=== PATIENT | female | born 1940 | race Caucasian/White ===

== ENCOUNTER → 2024-03-17 06:50 | Outpatient (REF) | payer MEDICARE, OTHER, SELFPAY | LOC: PAVMRI 06:50 | PROVIDERS: ATTENDING PHYSICIAN Pain Medicine Interventional Pain Medicine; FAMILY PHYSICIAN Family Medicine | DX: M54.12 Radiculopathy, cervical region (principal) | CPT/HCPCS: 72141 ==

== ENCOUNTER → 2024-03-25 07:33 | Outpatient (REF) | payer MEDICARE, OTHER, SELFPAY ==
[2024-03-25 08:26] LABS: % Basophils 0.8 % (0-2); % Eosinophils 2.2 % (0-6); % Immature Granulocytes 0.4 % (0-0.5); % Lymphocytes 20.5 % (20.5-51.1); % Monocytes 7.7 % (1.7-9.3); % Neutrophils 68.4 % (42.2-75.2); Absolute Basophils 0.1 10^3/uL (0-0.2); Absolute Eosinophils 0.2 10^3/uL (0-0.7); Absolute Lymphocytes 1.6 10^3/uL (1.2-3.4); Absolute Monocytes 0.6 10^3/uL (0.1-0.6); Absolute Neutrophils 5.3 10^3/uL (1.4-6.5); Hematocrit 37.7 % (37.0-47.0); Hemoglobin 12.8 g/dL (12.0-16.0); Mean Corpuscular Hgb 32.2 pg (27.0-31.0); Mean Corpuscular Volume 94.7 fL (81.0-99.0); Mean Platelet Volume 10.6 fL (7.4-10.4); Nucleated Red Blood Cells % 0 %; Platelet Count 144 10^3/uL (130-400); Red Blood Cell Count 3.98 10^6/uL (4.20-5.40); Red Cell Dist. Width 13.7 % (11.5-14.5); White Blood Cell Count 7.7 10^3/uL (4.8-10.8)
[2024-03-25 09:07] LABS: ALT (SGPT) 16 U/L (0-35); AST (SGOT) 30 U/L (14-36); Albumin 4.4 g/dl (3.5-5.0); Alkaline Phosphatase 69 U/L (38-126); Blood Urea Nitrogen 28 mg/dl (7-17); Calcium 9.5 mg/dl (8.4-10.2); Carbon Dioxide 26 mmol/L (22-30); Chloride 105 mmol/L (98-107); Glucose 86 mg/dl (70-99); HDL Cholesterol 70 mg/dl; LDL Cholesterol, Calculated 106 mg/dl; Potassium 3.9 mmol/L (3.5-5.1); Sodium 139 mmol/L (135-145); Total Bilirubin 0.7 mg/dl (0.2-1.3); Total Cholesterol 195 mg/dl (50-199); Total Protein 6.5 g/dl (6.3-8.2); Triglyceride 96 mg/dl (10-149); Very Low Density Lipoprotein 19 mg/dl (0-30)
[2024-03-25 09:30] LABS: TSH Reflex To Free T4 0.59 uIU/ml (0.47-4.68)
== END ==
LOC: REG 07:33
PROVIDERS: ATTENDING PHYSICIAN Orthopaedic Surgery Hand Surgery; FAMILY PHYSICIAN Family Medicine
DX: I42.2 Other hypertrophic cardiomyopathy (principal); I25.10 Atherosclerotic heart disease of native coronary artery without angina pectoris; N18.30 Chronic kidney disease, stage 3 unspecified; R29.6 Repeated falls; E78.00 Pure hypercholesterolemia, unspecified; Z85.3 Personal history of malignant neoplasm of breast; K21.9 Gastro-esophageal reflux disease without esophagitis; Z01.818 Encounter for other preprocedural examination
CPT/HCPCS: 36415; 80053; 80061; 84443; 85025

== ENCOUNTER → 2024-04-14 14:32 | Outpatient (REF) | payer MEDICARE, OTHER, SELFPAY | LOC: HWRAD 14:32 | PROVIDERS: ATTENDING PHYSICIAN Internal Medicine Cardiovascular Disease; FAMILY PHYSICIAN Family Medicine | DX: R06.00 Dyspnea, unspecified (principal) | CPT/HCPCS: 71046 ==

== ENCOUNTER → 2024-04-15 11:18 | Outpatient (REF) | payer MEDICARE, OTHER, SELFPAY ==
[2024-04-15 12:41] LABS: NT-proBNP 560 pg/ml
== END ==
LOC: REG 11:18
PROVIDERS: ATTENDING PHYSICIAN Internal Medicine Cardiovascular Disease
DX: R06.00 Dyspnea, unspecified (principal)
CPT/HCPCS: 36415; 83880

== ENCOUNTER → 2024-05-10 13:57 | Outpatient (REF) | payer MEDICARE, OTHER, SELFPAY ==
[2024-05-10 14:43] LABS: % Basophils 1.1 % (0-2); % Eosinophils 1.9 % (0-6); % Immature Granulocytes 0.5 % (0-0.5); % Lymphocytes 27.3 % (20.5-51.1); % Monocytes 9.2 % (1.7-9.3); Absolute Basophils 0.1 10^3/uL (0-0.2); Absolute Eosinophils 0.1 10^3/uL (0-0.7); Absolute Lymphocytes 1.7 10^3/uL (1.2-3.4); Absolute Monocytes 0.6 10^3/uL (0.1-0.6); Absolute Neutrophils 3.8 10^3/uL (1.4-6.5); Hematocrit 36.3 % (37.0-47.0); Hemoglobin 12.7 g/dL (12.0-16.0); Mean Corpuscular Hgb 33.2 pg (27.0-31.0); Mean Corpuscular Volume 94.8 fL (81.0-99.0); Mean Platelet Volume 10.7 fL (7.4-10.4); Nucleated Red Blood Cells % 0 %; Platelet Count 145 10^3/uL (130-400); Red Blood Cell Count 3.83 10^6/uL (4.20-5.40); Red Cell Dist. Width 13.3 % (11.5-14.5); White Blood Cell Count 6.3 10^3/uL (4.8-10.8)
[2024-05-10 14:58] LABS: ALT (SGPT) 17 U/L (0-35); AST (SGOT) 30 U/L (14-36); Albumin 4.3 g/dl (3.5-5.0); Alkaline Phosphatase 64 U/L (38-126); Blood Urea Nitrogen 25 mg/dl (7-17); Calcium 9.2 mg/dl (8.4-10.2); Carbon Dioxide 28 mmol/L (22-30); Chloride 98 mmol/L (98-107); Glucose 82 mg/dl (70-99); Iron 143 ug/dl (37-170); Magnesium 1.9 mg/dl (1.6-2.3); Potassium 4.7 mmol/L (3.5-5.1); Sodium 136 mmol/L (135-145); Total Bilirubin 0.8 mg/dl (0.2-1.3); Total Protein 6.3 g/dl (6.3-8.2); eGFR 44.91
[2024-05-10 15:06] LABS: NT-proBNP 370 pg/ml
[2024-05-10 15:27] LABS: TSH 0.03 uIU/ml (0.47-4.68)
[2024-05-10 15:45] LABS: Vitamin B12 992 pg/ml (239-931)
== END ==
LOC: REG 13:57
PROVIDERS: ATTENDING PHYSICIAN Nurse Practitioner Acute Care; FAMILY PHYSICIAN Family Medicine; REFERRING PHYSICIAN Internal Medicine Cardiovascular Disease
DX: I50.30 Unspecified diastolic (congestive) heart failure (principal); D51.9 Vitamin B12 deficiency anemia, unspecified
CPT/HCPCS: 36415; 80053; 82607; 82728; 83540; 83735; 83880; 84443; 85025

== ENCOUNTER 2024-05-12 12:41 | Emergency (ER) | payer MEDICARE, OTHER, SELFPAY ==
[2024-05-12] VITALS (9 sets, daily range): BP systolic 118–143; BP diastolic 66–91; BMI 21.8
[2024-05-12 13:02] LABS: % Basophils 0.9 % (0-2); % Eosinophils 1.5 % (0-6); % Immature Granulocytes 0.3 % (0-0.5); % Lymphocytes 27.8 % (20.5-51.1); % Monocytes 8.3 % (1.7-9.3); % Neutrophils 61.2 % (42.2-75.2); Absolute Basophils 0.1 10^3/uL (0-0.2); Absolute Eosinophils 0.1 10^3/uL (0-0.7); Absolute Lymphocytes 1.8 10^3/uL (1.2-3.4); Absolute Monocytes 0.6 10^3/uL (0.1-0.6); Hematocrit 36.3 % (37.0-47.0); Hemoglobin 12.7 g/dL (12.0-16.0); Mean Corpuscular Hgb 32.9 pg (27.0-31.0); Mean Platelet Volume 10.6 fL (7.4-10.4); Nucleated Red Blood Cells % 0 %; Platelet Count 162 10^3/uL (130-400); Red Blood Cell Count 3.86 10^6/uL (4.20-5.40); Red Cell Dist. Width 13.2 % (11.5-14.5); White Blood Cell Count 6.6 10^3/uL (4.8-10.8)
[2024-05-12 13:15] LABS: ALT (SGPT) 16 U/L (0-35); AST (SGOT) 30 U/L (14-36); Albumin 4.4 g/dl (3.5-5.0); Alkaline Phosphatase 62 U/L (38-126); Blood Urea Nitrogen 23 mg/dl (7-17); Calcium 9.1 mg/dl (8.4-10.2); Carbon Dioxide 25 mmol/L (22-30); Chloride 99 mmol/L (98-107); Estimated Creatinine Clearance 31 ml/min; Glucose 85 mg/dl (70-99); Potassium 4.3 mmol/L (3.5-5.1); Sodium 135 mmol/L (135-145); Total Bilirubin 0.9 mg/dl (0.2-1.3); Total Protein 6.4 g/dl (6.3-8.2)
[2024-05-12 13:27] LABS: Troponin I < 0.012 ng/ml
[2024-05-12] MEDS: LOW STRENGTH ASPIRIN 81 MG PO (14:30)
[2024-05-12 14:49] LABS: Urine Albumin Negative (Neg - Trace); Urine Bilirubin Negative (Negative); Urine Character Clear (Clear); Urine Color Yellow; Urine Glucose Negative (Negative); Urine Ketone Negative (Negative); Urine Leukocyte 2+ (Negative); Urine Nitrite Negative (Negative); Urine Occult Blood Negative (Negative); Urine Urobilinogen Negative (Neg - 1+); Urine pH 6.5 (5.0-9.0)
[2024-05-12] MEDS: SOLU-CORTEF 200 MG IV (15:29)
[2024-05-12] MEDS: BENADRYL 50 MG IV (15:29)
[2024-05-12 15:42] LABS: Urine Red Blood Cell 0-2 /HPF (0-2)
[2024-05-12 15:43] LABS: Urine Squamous Cell 0-2 /LPF (Few)
--- NOTE | 2024-05-12 18:50 | ED.ADDNOTE ---
ED Addendum
ED Addendum
ED Addendum Note:
6:00 PM patient has a normal neurological exam. She is awake, appears very well and comfortable, is alert and speaking without any difficulty. CTA shows no significant occlusion. Case again discussed with Dr. Thacker who feels that patient could go
home and recommends 3 weeks of Plavix.
Patient seen in conjunction with Sergio Arizmendi
--- NOTE | 2024-05-12 19:34 | EDRN ---
Went into discharge patient, patient and patients son inform me that patient is on trial at [place] and isn't suppose to take or start anything new without informing them or talking to them, informed Dr. Valderrama about the plavix, Dr. Valderrama states
ok to not take dose here but to talk to them because she does need to be on this med. A prescription was sent to the pharmacy for patient, went over all of this with patient and her son.
--- NOTE | 2024-05-29 14:06 | ED.CVA ---
History of Present Illness
General
Chief Complaint: CVA/TIA Symptoms
Source: patient
Time Seen by Provider: 05/12/24 13:44
Onset of Stroke Symptoms
Onset of symptoms known: No
Time pt last seen normal is known: No
History of Present Illness
History of Present Illness:
Please state this note May 12, 2024. She 83-year-old female presents from her family doctor's office via EMS after having episode of expressive aphasia in the office. No prior issues similar to this. She is not anticoagulated. She does have
history of cardiomyopathy and is in a clinical trial. She has no complaints currently. She denies any unilateral numbness or weakness. She denies headache
Past History
Past History
ED Past Medical History: CAD, Cancer (Left breast), GERD, HTN, Hypercholesterolemia and Other (CM, Diverticulitis)
ED Past Surgical History: Appendectomy and Cardiac (Stent, 'Fat Heart')
Social History
Tobacco: Former smoker
Alcohol: None
Drug: None
Personal:
Living: with family
Phy Exam
Physical Exam
Physical Exam:
General: Well-appearing female no acute respiratory distress
HEENT normocephalic atraumatic no facial asymmetry
Heart: Regular rate and rhythm
Lungs: Clear no wheeze
Neurologic exam: Alert normal gait conversing appropriately no aphasia no facial asymmetry no drift
Extremities: No cyanosis
Course
Orders/Labs/Results
Orders:
Orders
05/12/24 12:43
Electrocardiogram (*1) Urgent
Reason for Study: TIA/Stroke
EKG- Treatment ONCE
05/12/24 12:52
CMP [Comprehensive Metabolic Panel] Urgent
Complete Blood Count/With Diff Urgent
Troponin I Urgent
05/12/24 12:53
Urinalysis Reflex To Culture Urgent
Date Specimen was Collected: 05/12/24
Time Specimen was Collected: 12:52
Urine Microscopic Reflex Cult Urgent
Urine Culture Urgent
TACO Source: U
Specimen Description:
Date Specimen was Collected: 05/12/24
Time Specimen was Collected: 12:52
05/12/24 14:03
CT Head W/o Iv Contrast Urgent
Comment:
Reason For Exam: tia
Aspirin Chewable [Low Strength Aspirin] 81 mg PO NOW STA
05/12/24 14:53
CT Head & Neck Angio W/wo IV Urgent
Comment:
Reason For Exam: aphasia, word salad
05/12/24 15:24
Diphenhydramine [Benadryl] 50 mg IV NOW STA
Hydrocortisone Sod Succinate [Solu-Cortef] 200 mg IV NOW STA
05/12/24 17:26
DIETARY CONSULT Routine
Reason for Consult: not needed
05/12/24 18:54
Clopidogrel Bisulfate [Plavix] 75 mg PO NOW STA
Abnormal Lab Results
05/12/24 05/12/24
12:52 12:53
RBC 3.86 L 10^6/uL
(4.20-5.40)
Hct 36.3 L %
(37.0-47.0)
MCH 32.9 H pg
(27.0-31.0)
MPV 10.6 H fL
(7.4-10.4)
BUN 23 H mg/dl
(7-17)
Leukocyte Esterase Rfl 2+ A
(Negative)
05/12/24 12:52
05/12/24 12:52
Vital Signs
Initial and Last Documented VS:
Initial Vital Signs
BP
138/69
05/12/24 12:41
Last Documented Vital Signs
Temp Pulse Resp BP Pulse Ox
98.0 F 66 16 143/83 96
05/12/24 12:50 05/12/24 19:00 05/12/24 19:00 05/12/24 19:00 05/12/24 18:45
MDM/Problems Addressed
Differential Diagnosis Includes:
Expressive aphasia at doctor's office. Now resolved normal neurologic exam. Will do CTA and CT of head. Imaging studies were negative. Discussed with neurology. Question possible TIA
. Will start on Plavix for 3 weeks but stable for discharge
*Critical Care Note
Total Time (30-74mins, 75-104mins- exclusive of procedures): Not Applicable
ED Attending Note
-
Portions of this chart may have been created with voice recognition software.� Occasional wrong word or��sound alike� substitutions may have occurred due to the inherent limitations of voice recognition software.
Discharge Plan
Departure
Patient Disposition: Home (Routine Discharge)
Date of Disposition: 05/12/24
Time of Disposition: 18:48
Patient with high blood pressure during this ER visit?: No
Condition: Good
Covid-19: Not Applicable
Discharge Problem:
TIA (transient ischemic attack)
Instructions: Transient Ischemic Attack (DC)
Prescriptions:
New
clopidogrel [Plavix] 75 mg tablet
75 mg PO DAILY Qty: 21 0RF
No Action
coenzyme [id number] E [Co Q-10 (with Vit E)] 1 EACH capsule
1 ea PO DAILY
cholecalciferol (vitamin D3) 2,000 UNITS tablet
2,000 units PO DAILY
ascorbic acid (vitamin C) [Vitamin C] 500 MG tablet
500 mg PO DAILY
pantoprazole 40 MG tablet,delayed release (DR/EC)
40 mg PO DAILY
aspirin 81 MG tablet,chewable
81 mg PO DAILY 0RF
cyanocobalamin (vitamin B-12) [Vitamin B-12] 1,000 mcg Tablet
500 mcg PO DAILY
magnesium oxide 500 mg Tablet
500 mg PO QPM
atorvastatin 20 mg Tablet
20 mg PO QPM 30 Days Qty: 30 0RF
metoprolol succinate [Toprol XL] 25 mg tablet extended release 24 hr
25 mg PO DAILY Qty: 30 11RF
Rx Instructions:
Toprol XL replaces Lopressor
Referrals:
Jann Thacker MD [Active] - (Call and follow-up within 7 days)
Joann Dimas MD [Family Provider] -
Activity Restrictions/Additional Instructions:
Make sure to call neurology to make an appointment to see within 1 week. Please start taking the Plavix once a day for 3 weeks straight. Please return back to the emergency department if you have difficulty speaking, or if you experience any
weakness or numbness.
Interventions
Interventions:
*Risk Screen - Suicide Last Done: 05/12/24 12:45
*General Assessment Last Done: 05/12/24 12:45
*Neglect/Abuse Screening Last Done: 05/12/24 12:45
ED- Fall Risk Assessment Last Done: 05/12/24 12:45
*ED COVID-19 Vaccine History Last Done: 05/12/24 12:45
*Nursing Disposition Last Done: 05/12/24 19:37
ED- Pulmonary Assessment Last Done: 05/12/24 12:45
ED- Neurological Assessment Last Done: 05/12/24 12:45
ED- Cardiac Assessment Last Done: 05/12/24 12:45
ED Swallowing Screen Last Done: 05/12/24 14:19
Discharge Date and Time
Discharge Date/Time: 05/12/24 19:37
Print Language: LEBANESE
== END 2024-05-12 19:37 | disposition home or self-care (01) ==
LOC: EMR 12:41
PROVIDERS: Physician Assistant; EMERGENCY PHYSICIAN Emergency Medicine; FAMILY PHYSICIAN Family Medicine
DX: G45.9 Transient cerebral ischemic attack, unspecified (principal); I42.9 Cardiomyopathy, unspecified; I25.10 Atherosclerotic heart disease of native coronary artery without angina pectoris; K21.9 Gastro-esophageal reflux disease without esophagitis; I10 Essential (primary) hypertension; E78.00 Pure hypercholesterolemia, unspecified; Z87.891 Personal history of nicotine dependence
CPT/HCPCS: 99284; 70450; 70496; 70498; 80053; 81003; 81015; 84484; 85025; 87086; 93005; Q9967

== ENCOUNTER → 2024-06-24 10:37 | Outpatient (REF) | payer MEDICARE, OTHER, SELFPAY ==
[2024-06-24 11:49] LABS: Blood Urea Nitrogen 24 mg/dl (7-17); Calcium 9.3 mg/dl (8.4-10.2); Carbon Dioxide 29 mmol/L (22-30); Chloride 102 mmol/L (98-107); Glucose 81 mg/dl (70-99); Potassium 4.3 mmol/L (3.5-5.1); Sodium 140 mmol/L (135-145)
[2024-06-24 12:42] LABS: Free T4 1.05 ng/dl (0.78-2.19)
[2024-06-25 17:49] LABS: Thyroglobulin Antibodies <0.9 IU/mL (0.0-4.0)
== END ==
LOC: REG 10:37
PROVIDERS: ATTENDING PHYSICIAN Family Medicine
DX: N18.31 Chronic kidney disease, stage 3a (principal); R79.89 Other specified abnormal findings of blood chemistry; E87.1 Hypo-osmolality and hyponatremia
CPT/HCPCS: 36415; 80048; 84439; 84443; 86376; 86800

== ENCOUNTER 2024-07-09 21:00 | Inpatient (IN) | payer MEDICARE, OTHER, SELFPAY ==
[2024-07-09] VITALS (28 sets, daily range): BP systolic 78–125; BP diastolic 61–101; BMI 23.8
--- NOTE | 2024-07-09 15:25 | ED.GENMED ---
History of Present Illness
<MAYNOR Diana Jr. Last Filed: 07/09/24 20:56>
General
Chief Complaint: Chest Pain
Source: patient
Exam Limitations: none
Time Seen by Provider: 07/09/24 15:11
Nursing documentation reviewed up to this point in time: agreed with
History of Present Illness
History of Present Illness:
84-year-old female with past history of hypertrophic cardiomyopathy, previous TIA, CAD status post stent 2020, hypertension hyperlipidemia presenting to the emergency department today with concerns of intermittent chest pain over the past 4 days but
persisting over the past few hours described as sharp achy and pressure with some radiation to her left arm and neck. Took aspirin prior to arrival with slight improvement. Slight associated shortness of breath and nausea no vomiting no
diaphoresis. No recent illness or changes in medication.
Past History
<Jason See Jr., PA-C - Last Filed: 07/09/24 20:56>
Past History
ED Past Medical History: CAD, Cancer (Left breast), GERD, HTN, Hypercholesterolemia and Other (CM, Diverticulitis)
ED Past Surgical History: Appendectomy and Cardiac (Stent, 'Fat Heart')
Social History
Tobacco: Former smoker
Alcohol: None
Drug: None
Personal:
Living: with family
Review of Systems
<MAYNOR Diana Jr. Last Filed: 07/09/24 20:56>
Review of Systems
Allergies reviewed?: Yes
All Other Systems: ROS reviewed and negative except as documented in HPI and ROS
Phy Exam
<MAYNOR Diana Jr. Last Filed: 07/09/24 20:56>
Physical Exam
Physical Exam:
GENERAL: Alert , in no apparent distress
EYE: pupils equal and reactive
NECK: Supple, no significant adenopathy.
ENT: o/p clr, mmm.
CARDIAC: Regular rate and rhythm .
LUNGS: Clear breath sounds bilaterally, no acute respiratory distress, no wheezes/rales/rhonchi
ABDOMEN: Soft, without focal tenderness, no r/g, no cvat
NEUROLOGICAL: Alert and oriented, no focal neuro deficits
SKIN: Warm and dry, skin intact.
MUSCULOSKELETAL: No edema, well perfused.
PSYCH: Normal and appropriate interaction.
Scores
<Jason See Jr., PA-C - Last Filed: 07/09/24 20:56>
Heart Score for Chest Pain Patients
STEMI patient?: No
History: Highly Suspicious
ECG: Nonspecific Repolarization
Age: >/= 65 years
Risk Factors: >/= 3 Risk Factors or History of CAD
Troponin: >/= 3 x Normal Limit
Heart Score for Chest Pain Patients: 9
Heart Score Risk: 72.7 % MACE over next 6 weeks
<Mirza Eddy MD - Last Filed: 07/09/24 21:20>
Heart Score for Chest Pain Patients
Heart Score for Chest Pain Patients: 9
Heart Score Risk: 72.7 % MACE over next 6 weeks
Course
<Jason See Jr., PA-C - Last Filed: 07/09/24 20:56>
Orders/Labs/Results
Orders:
Orders
07/09/24 15:14
Electrocardiogram (*1) Urgent
Reason for Study: Chest Pain
EKG- Treatment ONCE
07/09/24 15:21
Complete Blood Count/With Diff Urgent
Comprehensive Metabolic Panel Urgent
Troponin I Urgent
07/09/24 15:52
Heparin 3,300 units IV NOW STA
07/09/24 15:[address] Non Medication Order As Directed
Physician Order: PTT 6 hours after initial start of Heparin infusion
Above order entered?: Yes
07/09/24 16:00
PTT Urgent
Heparin 91518 Units/250 ml 25,000 units in 250 ml IV PER PROTOCOL
Weight to be used for heparin protocol in kilograms (kg):: 55.5
Protocol:: Cardiac Tx/Acute Coronary
PTT Goal Range to be used:: PTT 73 to 111 seconds
Order type:: Initial
INITIAL Infusion Dose (UNITS/KG/hr) & then follow protocol:: 12 units/kg/hr
Infusion Dose in UNITS/hr & then follow protocol (UNITS/hr):: 650
INFUSION RATE in mL/hr & then follow protocol (mL/hr):: 6.5
PTT less than or equal to 64 seconds:: Increase rate by 200 units/hr (+ 2 mL/hr)
PTT 64.1 to 72.9 seconds:: Increase rate by 100 units/hr (+ 1 mL/hr)
PTT 73 to 111 seconds:: Target Range. No change in rate.
PTT 111.1 to 130.9 seconds:: Decrease rate by 100 units/hr (- 1 mL/hr)
PTT 131 to 199.9 seconds:: HOLD for 1 hr. Then decrease rate by 200 units/hr (- 2 mL/hr)
PTT greater than or equal to 200 seconds:: HOLD for 2 hrs & Notify Provider. Then decrease by 200 units/hr (-
2 mL/hr)
Lab follow-up:: Each change, PTT q6h until 2 consecutive are therapeutic. Then PTT
daily.
07/09/24 16:07
Electrocardiogram (*1) Urgent
Reason for Study: Chest Pain
EKG- Treatment ONCE
07/09/24 16:10
CXR Port [CR Chest Portable - 1 View] Urgent
Comment:
Reason For Exam: cp
Reason Study Needs to be Portable: Unable to Transport
07/09/24 16:32
CT Chest Angio W/wo Iv Contras Urgent
Comment:
Reason For Exam: chets pain to back unequal BP in arms BL
07/09/24 17:49
Fentanyl Citrate/Pf [Sublimaze] 25 mcg IV NOW STA
07/09/24 18:33
0.9% Sodium Chloride 500 ml [Nss] 0 ml IV ONCE
07/09/24 18:34
0.9% Sodium Chloride 500 ml [Nss] 500 ml IV BOLUS
07/09/24 19:11
EKG [Electrocardiogram (*1)] Urgent
Reason for Study: Chest Pain
EKG- Treatment ONCE
07/09/24 19:34
Troponin I Urgent
07/09/24 20:38
Admit/Transfer Patient As Directed
Co-Sign Provider:
Level of Care: Inpatient admission
Assign to:: IVU
Physician / Group: Hospitalist
Diagnosis: NSTEMI
Reason for Hospitalization: NSTEMI
Expected length of stay greater than two midnights?: Yes
ELOS- Estimated Length of Stay in days: 2
I certify the patient meets the requirements for IP care: Yes
07/09/24 20:39
Code Status As Directed
Resuscitation Status: Full Code
07/09/24 20:48
PRN Pain Medication Management As Directed
May give lesser potent ordered pain med per pt: Yes
preference::
Protocol:: Medication orders for pain may be administered in a
manner that supports deferring to patient preference
when the pt is:
- Requesting an ordered lesser potent pain medication.
Least to most potent pain medications are defined
as: acetaminophen < NSAID < tramadol < opioids
(morphine, oxycodone, hydromorphone).
- Requesting a lesser dose of the same medication IF
ORDERED.
- Requesting a less intrusive route of administration
if both routes are prescribed by the provider (PO <
IV).
07/09/24 21:00
Flush (0.9% Sodium Chloride) [Flush (Nss)] See Dose Instructions IV PER PROTOCOL
07/09/24 22:35
PTT Urgent
07/10/24 12:00
Aspirin Chewable [Low Strength Aspirin] 81 mg PO NOON
Atorvastatin [Lipitor] 40 mg PO NOON
Metoprolol Xl [Toprol Xl] 25 mg PO NOON
Pantoprazole [Protonix] 40 mg PO NOON
mavacamten [Camzyos] 5 mg PO NOON
07/11/24 11:00
DC Protocol for Telemetry ONCE
Abnormal Lab Results
07/09/24 07/09/24
15:21 19:34
RBC 3.83 L 10^6/uL
(4.20-5.40)
Hct 36.5 L %
(37.0-47.0)
MCH 33.2 H pg
(27.0-31.0)
MPV 10.8 H fL
(7.4-10.4)
Absolute Monos (auto) 0.7 H 10^3/uL
(0.1-0.6)
BUN 24 H mg/dl
(7-17)
Glucose 132 H mg/dl
(70-99)
Troponin I 0.103 H* D ng/ml
07/09/24 15:21
07/09/24 15:21
Vital Signs
Initial and Last Documented VS:
Initial Vital Signs
BP
97/75
07/09/24 15:13
Last Documented Vital Signs
Temp Pulse Resp BP Pulse Ox
97.9 F 78 16 94/67 96
07/09/24 15:15 07/09/24 20:45 07/09/24 20:45 07/09/24 20:45 07/09/24 20:45
<Mirza Eddy MD - Last Filed: 07/09/24 21:20>
Orders/Labs/Results
Orders:
Orders
07/09/24 15:14
Electrocardiogram (*1) Urgent
Reason for Study: Chest Pain
EKG- Treatment ONCE
07/09/24 15:21
Complete Blood Count/With Diff Urgent
Comprehensive Metabolic Panel Urgent
Troponin I Urgent
07/09/24 15:52
Heparin 3,300 units IV NOW STA
07/09/24 15:[address] Non Medication Order As Directed
Physician Order: PTT 6 hours after initial start of Heparin infusion
Above order entered?: Yes
07/09/24 16:00
PTT Urgent
Heparin 34477 Units/250 ml 25,000 units in 250 ml IV PER PROTOCOL
Weight to be used for heparin protocol in kilograms (kg):: 55.5
Protocol:: Cardiac Tx/Acute Coronary
PTT Goal Range to be used:: PTT 73 to 111 seconds
Order type:: Initial
INITIAL Infusion Dose (UNITS/KG/hr) & then follow protocol:: 12 units/kg/hr
Infusion Dose in UNITS/hr & then follow protocol (UNITS/hr):: 650
INFUSION RATE in mL/hr & then follow protocol (mL/hr):: 6.5
PTT less than or equal to 64 seconds:: Increase rate by 200 units/hr (+ 2 mL/hr)
PTT 64.1 to 72.9 seconds:: Increase rate by 100 units/hr (+ 1 mL/hr)
PTT 73 to 111 seconds:: Target Range. No change in rate.
PTT 111.1 to 130.9 seconds:: Decrease rate by 100 units/hr (- 1 mL/hr)
PTT 131 to 199.9 seconds:: HOLD for 1 hr. Then decrease rate by 200 units/hr (- 2 mL/hr)
PTT greater than or equal to 200 seconds:: HOLD for 2 hrs & Notify Provider. Then decrease by 200 units/hr (-
2 mL/hr)
Lab follow-up:: Each change, PTT q6h until 2 consecutive are therapeutic. Then PTT
daily.
07/09/24 16:07
Electrocardiogram (*1) Urgent
Reason for Study: Chest Pain
EKG- Treatment ONCE
07/09/24 16:10
CXR Port [CR Chest Portable - 1 View] Urgent
Comment:
Reason For Exam: cp
Reason Study Needs to be Portable: Unable to Transport
07/09/24 16:32
CT Chest Angio W/wo Iv Contras Urgent
Comment:
Reason For Exam: chets pain to back unequal BP in arms BL
07/09/24 17:49
Fentanyl Citrate/Pf [Sublimaze] 25 mcg IV NOW STA
07/09/24 18:33
0.9% Sodium Chloride 500 ml [Nss] 0 ml IV ONCE
07/09/24 18:34
0.9% Sodium Chloride 500 ml [Nss] 500 ml IV BOLUS
07/09/24 19:11
EKG [Electrocardiogram (*1)] Urgent
Reason for Study: Chest Pain
EKG- Treatment ONCE
07/09/24 19:34
Troponin I Urgent
07/09/24 20:38
Admit/Transfer Patient As Directed
Co-Sign Provider:
Level of Care: Inpatient admission
Assign to:: IVU
Physician / Group: Hospitalist
Diagnosis: NSTEMI
Reason for Hospitalization: NSTEMI
Expected length of stay greater than two midnights?: Yes
ELOS- Estimated Length of Stay in days: 2
I certify the patient meets the requirements for IP care: Yes
07/09/24 20:39
Code Status As Directed
Resuscitation Status: Full Code
07/09/24 20:48
PRN Pain Medication Management As Directed
May give lesser potent ordered pain med per pt: Yes
preference::
Protocol:: Medication orders for pain may be administered in a
manner that supports deferring to patient preference
when the pt is:
- Requesting an ordered lesser potent pain medication.
Least to most potent pain medications are defined
as: acetaminophen < NSAID < tramadol < opioids
(morphine, oxycodone, hydromorphone).
- Requesting a lesser dose of the same medication IF
ORDERED.
- Requesting a less intrusive route of administration
if both routes are prescribed by the provider (PO <
IV).
07/09/24 21:00
Flush (0.9% Sodium Chloride) [Flush (Nss)] See Dose Instructions IV PER PROTOCOL
07/09/24 22:35
PTT Urgent
07/10/24 12:00
Aspirin Chewable [Low Strength Aspirin] 81 mg PO NOON
Atorvastatin [Lipitor] 40 mg PO NOON
Metoprolol Xl [Toprol Xl] 25 mg PO NOON
Pantoprazole [Protonix] 40 mg PO NOON
mavacamten [Camzyos] 5 mg PO NOON
07/11/24 11:00
DC Protocol for Telemetry ONCE
Abnormal Lab Results
07/09/24 07/09/24
15:21 19:34
RBC 3.83 L 10^6/uL
(4.20-5.40)
Hct 36.5 L %
(37.0-47.0)
MCH 33.2 H pg
(27.0-31.0)
MPV 10.8 H fL
(7.4-10.4)
Absolute Monos (auto) 0.7 H 10^3/uL
(0.1-0.6)
BUN 24 H mg/dl
(7-17)
Glucose 132 H mg/dl
(70-99)
Troponin I 0.103 H* D ng/ml
07/09/24 15:21
07/09/24 15:21
Vital Signs
Initial and Last Documented VS:
Initial Vital Signs
BP
97/75
07/09/24 15:13
Last Documented Vital Signs
Temp Pulse Resp BP Pulse Ox
97.9 F 78 16 94/67 96
07/09/24 15:15 07/09/24 20:45 07/09/24 20:45 07/09/24 20:45 07/09/24 20:45
<Jason See Jr., PA-C - Last Filed: 07/09/24 20:56>
MDM/Problems Addressed
MDM/Problems Addressed:
83-year-old female presenting to the emergency department today with concerns of intermittent chest pain over the past few days but persisting today described as achy throbbing pressure rating to the left arm and neck. Initial EKG showing left
bundle branch block which is new from previous. Blood pressure in the 90s over 70s typically patient's blood pressure slightly higher. Claims that pain is ongoing with a left-sided sharp chest discomfort with radiation down to the back and to the
arm concerning the description to the back CT angiogram was performed as well did not show any evidence of dissection or aortic pathology. Initial troponin negative. Patient did have recurrence of symptoms here repeated troponin form EKG with new
T wave inversions and troponin elevated at 0.103. Patient started on heparin but otherwise mated for further cardiology assessment.
<Jason See Jr., PA-C - Last Filed: 07/09/24 20:56>
*Critical Care Note
Total Time (30-74mins, 75-104mins- exclusive of procedures): Not Applicable
ED Attending Note
<Jason See Jr., PA-C - Last Filed: 07/09/24 20:56>
-
Portions of this chart may have been created with voice recognition software.� Occasional wrong word or��sound alike� substitutions may have occurred due to the inherent limitations of voice recognition software.
<Mirza Eddy MD - Last Filed: 07/09/24 21:20>
ED Attending Note
Patient seen and examined by attending physician: Yes
I performed the substantive portion of visit, reviewed & personally made and approve the management plan that is documented in note by myself or JAVED.: Yes
ED Attending Note:
84-year-old female with a history of hypertrophic cardiomyopathy and LAD stent presents with chest pain. Started at 9 AM. Worse today. Gets this fairly frequently possibly 2-3 times a week and will last for a few hours. Today's episode however
has lasted longer and more severe. No shearing pain or back pain.
Clinically patient is nontoxic in no distress. She does have slightly low blood pressure. She is warm and dry and perfusing well. Lungs are clear and equal. Heart regular rate and rhythm with moderate midsystolic murmur. Abdomen is soft and
nontender.
EKG concerning for possible anterior OR. Some ST elevation in V2 and V3. EKG was sent immediately to cardiology. Awaiting their opinion. Workup in progress
1630... At 1 point patient states the pain was going up to his both shoulders and upper back. This is somewhat different than her previous frequent chest pain episodes. However she remained warm and dry and perfusing well although hypotensive.
Slight asymmetry of blood pressure readings. Chest x-ray unremarkable. Repeat EKG unchanged. Cardiology updated. Troponin negative. Since symptoms started at 9 AM if this was cardiac I would expect a's probable bump in the troponin. Will get a
CT angiography.
Patient had increasing pain. Repeat EKG shows some new changes. However on exam pain was very reproducible to a local chest wall tenderness. Troponin was ordered. Repeat troponin with a delta of 0.103. Pain seems to wax and wane. Cardiology
contacted.
CC=40 minutes
Discharge Plan
Departure
Patient Disposition: Admit
Date of Disposition: 07/09/24
Time of Disposition: 20:55
Admit to: Telemetry
Admit to doctor: Katheryn
Presentation/result/management discussed w/ accepting MD/DO: Hospitalist
Patient with high blood pressure during this ER visit?: No
Condition: Fair
Covid-19: Not Applicable
Discharge Problem:
Chest pain, Elevated troponin
Interventions
Interventions:
*Risk Screen - Suicide Last Done: 07/09/24 15:17
*General Assessment Last Done: 07/09/24 15:17
*Neglect/Abuse Screening Last Done: 07/09/24 15:17
*ED COVID-19 Vaccine History Last Done: 07/09/24 15:17
ED- Cardiac Assessment Last Done: 07/09/24 15:17
[2024-07-09 15:31] LABS: % Basophils 0.9 % (0-2); % Eosinophils 1.6 % (0-6); % Immature Granulocytes 0.4 % (0-0.5); % Lymphocytes 24.7 % (20.5-51.1); % Monocytes 8.2 % (1.7-9.3); % Neutrophils 64.2 % (42.2-75.2); Absolute Basophils 0.1 10^3/uL (0-0.2); Absolute Eosinophils 0.1 10^3/uL (0-0.7); Absolute Lymphocytes 2.1 10^3/uL (1.2-3.4); Absolute Monocytes 0.7 10^3/uL (0.1-0.6); Absolute Neutrophils 5.5 10^3/uL (1.4-6.5); Hematocrit 36.5 % (37.0-47.0); Hemoglobin 12.7 g/dL (12.0-16.0); Mean Corp Hgb Conc. 34.8 g/dL (33.0-37.0); Mean Corpuscular Hgb 33.2 pg (27.0-31.0); Mean Corpuscular Volume 95.3 fL (81.0-99.0); Mean Platelet Volume 10.8 fL (7.4-10.4); Nucleated Red Blood Cells % 0 %; Platelet Count 154 10^3/uL (130-400); Red Blood Cell Count 3.83 10^6/uL (4.20-5.40); White Blood Cell Count 8.5 10^3/uL (4.8-10.8)
[2024-07-09 15:54] LABS: ALT (SGPT) 20 U/L (0-35); AST (SGOT) 33 U/L (14-36); Albumin 4.3 g/dl (3.5-5.0); Alkaline Phosphatase 59 U/L (38-126); Blood Urea Nitrogen 24 mg/dl (7-17); Carbon Dioxide 23 mmol/L (22-30); Chloride 100 mmol/L (98-107); Glucose 132 mg/dl (70-99); Potassium 4.3 mmol/L (3.5-5.1); Sodium 135 mmol/L (135-145); Total Bilirubin 1.1 mg/dl (0.2-1.3); Total Protein 6.4 g/dl (6.3-8.2); Troponin I 0.027 ng/ml; eGFR 55.55
[2024-07-09 16:22] LABS: APTT 34.1 Sec (23.4-35.0)
[2024-07-09] MEDS: HEPARIN 3300 UNITS IV (16:38)
[2024-07-09] MEDS: HEPARIN 25000 UNITS/250 ML IV (16:39)
--- NOTE | 2024-07-09 16:47 | CON.CAR ---
Consultation
Consultation Request
Date/Time Consultation Requested: 07/09/24
Date/Time Consultation Performed: 07/09/24
Requesting Provider: Dr Eddy
Performing Provider: Dr Mirza Salinas
Reason for Consultation: chest pain
Medical History
-
Chief Complaint: chest pain
History of Present Illness:
HPI
She presents with intermittent chest pain for 'a long time' and mostly constant CP with varying intensity over the past 4 days. She describes the pain as constant and 'sharp', using one finger to point to her lower left chest. She additionally has
less frequent right shoulder and upper back pain. Pain is none exertional. She has BARCLAY which has improved with medical therapy for HOCM
She has h/o LAD stenting in 2020 and patent stents and no new significant cor disease on cath 2022 when she was evaluated for chest main and minor troponin elevation peaking at 0.167.
She has HOCM with associated SOB and BARCLAY. Improved symptoms with mavacamten and beta-jazmin. She follows closely at the [facility] for her hypertrophic cardiomyopathy.
Presenting ECG is SR at 77 bpm with LBBB and when compared to 05/12/24 LBBB has replaced incomplete LBBB and lateral strain pattern seen now is new
Presenting troponin is 0.027
Presenting CXR with normal mediastinum, cardiac silhoutte and no PNA or CHF
Recent Testing:
Cardiac catheterizations:�
10/12/22. RHC/LHC. ��DOMINANCE: Right, LEFT MAIN: Normal, �LEFT ANTERIOR DESCENDING: The LAD arises normally from the left main and runs in the anterior interventricular groove. The stents in the mid LAD and diagonal branch remain widely patent.
The diagonal stent has 30% in-stent restenosis at its origin. The remainder of the LAD becomes a small caliber vessel. CIRCUMFLEX: The circumflex is a medium caliber nondominant vessel giving rise to a sizable bifurcating OM1. The circumflex
continues in the AV groove supplying several small posterolateral branches. �RIGHT CORONARY ARTERY: The right coronary artery is a dominant vessel that has a 50% stenosis in its midportion. The iFR measured above the ischemic threshold at 0.97 and
PCI is deferred
10/01/20. Dominance: right. Left Main: nl. LAD: proximal and mid LAD calcified. Complex trifurcation lesion involving the small first diagonal, huge second diagonal and LAD with a hazy 75% LAD stenosis just before diagonal and diffuse disease
thereafter. Ostial second diagonal has 70% stenosis. Circumflex: Luminal irregularities. RCA: 65% stenosis of the mid RCA. Left Ventriculography: LV small and ballet shoe appearance and LVH. EF is 68%. Patient underwent successful complex CSI
diamondback atherectomy to the LAD and diagonal bifurcation and T stenting with a 2.5/8 mm in the diagonal and 2.5/28 mm Susana Xience V drug-eluting stent in the LAD.
Cardiac Magnetic Resonance Imaging (MRI):�
01/05/23. Performed at [facility]. EF 59%. LVEDV 96 mL, Max wall thickness 18 mm, LV mass index 53.33 g/m2, LGE less than 5%. Normal LV cavity size and systolic function. There is asymmetric septal hypertrophy up to 18 mm at the mid-septum. There is mild
SHERLY with flow acceleration seen at the LVOT. 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 RVEF 58%
Echocardiogram:
07/13/2023 01:31:57 PM > nl LV size, asymmetric septal hypertrophy, no LV cavity or outflow tract obstruction, LVOT peak gradient at rest 5 mmHg, LVOT peak gradient with Valsalva 7 mmHg, incompletely visualized endocardium but no regional wall
motion abnormalities are noted in the visualized segment, LVEF 59% (Biplane), GLS 18.1%, grade I DD, reduced tissue Doppler velocity, nl RV size and function, TAPSE 1.8 cm, mildly dilated LA, LA volume 38 mL/m2, nl RA, mild MV leaflet thickening,
mild systolic anterior motion of the chordal apparatus is present, mild-mod MR, mild Tr, PASP 23 mmHg, mild AV calcification, mild AR, the jet is centrally directed, trace LA, pericardial fat pad present, nl aortic root size, proximal ascending
aorta is enlarged at 3.5 cm, upper abdominal aorta nl in size.
Past Med Hx:
HOCM
Coronary artery disease
10/01/20 atherectomy to the LAD and diagonal bifurcation and T stenting with a 2.5/8 mm in the diagonal and 2.5/28 mm Susana Xience V drug-eluting stent in the LAD.
10/12/22 Cor angio for CP patent LAD stents and no new significant cor dz
h/o Traumatic brain injury
she fell out of her bed and hit her head, developed hallucinations approximately 3 weeks later, found to have right subdural collection with subacute to chronic SDH at REPLACED BY [facility] 10/2021Hyperlipidemia with statin intolerance
Left breast cancer status postlumpectomy, chemotherapy and radiation 2001.
Sleep apnea
Fibromyalgia
Osteoarthritis
Dyslipidemia (h/o poorly karla statin but recently tolerating atorvastatin)
Anxiety and depression
Social History
Tobacco: Non-Smoker
Alcohol: None
Drug: None
Personal:
Living: With Family
Family History
Family History: Reviewed & Not Pertinent
Allergies / Home Medications
Allergy/AdvReac Type Severity Reaction Status Date / Time
aspirin Allergy Nausea / Verified 08/31/23 12:19
Vomiting
Cephalosporins Allergy Unknown Verified 08/31/23 12:19
iodine Allergy Unknown Verified 08/31/23 12:19
NSAIDS (Non-Steroidal Allergy Unknown Verified 08/31/23 12:19
Anti-Inflamma
penicillin G Allergy Nausea / Verified 08/31/23 12:19
Vomiting
Penicillins Allergy Nausea / Verified 08/31/23 12:19
Vomiting
Salicylates * Allergy Nausea / Verified 08/31/23 12:19
Vomiting
Sulfa (Sulfonamide Allergy Nausea / Verified 08/31/23 12:19
Antibiotics) Vomiting
sulfamethoxazole Allergy Nausea / Verified 08/31/23 12:19
Vomiting
trimethoprim Allergy Nausea / Verified 08/31/23 12:19
Vomiting
verapamil Allergy Shortness Verified 08/31/23 12:19
of Breath
�Medication �Instructions �Recorded �Confirmed �Type
pantoprazole 40 mg tablet,delayed 40 mg PO NOON Gastrointestinal 09/30/20 07/09/24 History
release issue
ascorbic acid (vitamin C) 250 mg 250 mg PO NOON 07/09/24 07/09/24 History
tablet (Vitamin C)
aspirin 81 mg chewable tablet 81 mg PO NOON 07/09/24 07/09/24 History
atorvastatin 40 mg tablet 40 mg PO NOON 07/09/24 07/09/24 History
biotin 10,000 mcg chewable tablet 10,000 mcg PO NOON 07/09/24 07/09/24 History
(Hair, Skin and Nails (biotin))
cholecalciferol (vitamin D3) 25 25 mcg PO NOON 07/09/24 07/09/24 History
mcg (1,000 unit) tablet (Vitamin
D3)
cyanocobalamin (vitamin B-12) 500 500 mcg PO NOON 07/09/24 07/09/24 History
mcg tablet
mavacamten 5 mg capsule (Camzyos) 5 mg PO NOON 07/09/24 07/09/24 History
metoprolol succinate 25 mg 25 mg PO NOON heart 07/09/24 07/09/24 History
tablet,extended release 24 hr disease/condition
(Toprol XL)
Review of Systems
-
History Source: Patient
All other systems: Negative unless noted
Constitutional: Fatigue
EENT: No Symptoms
Respiratory: Other (BARCLAY)
Cardiac: Chest Pain
Abdomen/GI: No Symptoms
: No Symptoms
Musculoskeletal: Other (generalized pain, mostly R shoulder and b/l upper back)
Skin: No Symptoms
Neurological: No Symptoms
Physical Exam
Vital Signs
Temp Pulse Resp BP Pulse Ox
97.9 F 82 16 118/101 97
07/09/24 15:15 07/09/24 16:04 07/09/24 16:12 07/09/24 16:29 07/09/24 16:04
Lab Results
07/09/24 15:21
07/09/24 15:21
Troponin I 0.027 ng/ml 07/09/24 15:21
Physical Exam
General: Well Developed, Well Nourished and No Apparent Distress (in bed, smilling)
HEENT: Normocephalic, Anicteric and Moist Mucous Membranes
Respiratory: Clear and Non Labored Respirations
Cardiac: S1/S2, Regular Rhythm and Murmur (2/6 DARLENE, no rubs)
Breast: Deferred by me
GI: Soft, Non Tender, Non Distended and Normal Bowel Sounds
Rectal: Deferred by Provider
Musculoskeletal: No Clubbing, No Cyanosis and Other (trace b/l pre-tibial edema)
Skin: Warm
Neuro: Awake, Alert, Oriented and AO x 3
Psych: Calm
Impression / Plan
-
Assessment:
Chest pain, atypical
HOCM
Coronary artery disease
10/01/20 atherectomy to the LAD and diagonal bifurcation and T stenting with a 2.5/8 mm in the diagonal and 2.5/28 mm Susana Xience V drug-eluting stent in the LAD.
10/12/22 Cor angio for CP patent LAD stents and no new significant cor dz
h/o Traumatic brain injury
she fell out of her bed and hit her head, developed hallucinations approximately 3 weeks later, found to have right subdural collection with subacute to chronic SDH at REPLACED BY [facility] 10/2021Hyperlipidemia with statin intolerance
Left breast cancer status postlumpectomy, chemotherapy and radiation 2001.
Sleep apnea
Fibromyalgia
Osteoarthritis
Dyslipidemia (h/o poorly karla statin but recently tolerating atorvastatin)
Anxiety and depression
Recent Testing:
Cardiac catheterizations:�
10/12/22. RHC/LHC. ��DOMINANCE: Right, LEFT MAIN: Normal, �LEFT ANTERIOR DESCENDING: The LAD arises normally from the left main and runs in the anterior interventricular groove. The stents in the mid LAD and diagonal branch remain widely patent.
The diagonal stent has 30% in-stent restenosis at its origin. The remainder of the LAD becomes a small caliber vessel. CIRCUMFLEX: The circumflex is a medium caliber nondominant vessel giving rise to a sizable bifurcating OM1. The circumflex
continues in the AV groove supplying several small posterolateral branches. �RIGHT CORONARY ARTERY: The right coronary artery is a dominant vessel that has a 50% stenosis in its midportion. The iFR measured above the ischemic threshold at 0.97 and
PCI is deferred
10/01/20. Dominance: right. Left Main: nl. LAD: proximal and mid LAD calcified. Complex trifurcation lesion involving the small first diagonal, huge second diagonal and LAD with a hazy 75% LAD stenosis just before diagonal and diffuse disease
thereafter. Ostial second diagonal has 70% stenosis. Circumflex: Luminal irregularities. RCA: 65% stenosis of the mid RCA. Left Ventriculography: LV small and ballet shoe appearance and LVH. EF is 68%. Patient underwent successful complex CSI
diamondback atherectomy to the LAD and diagonal bifurcation and T stenting with a 2.5/8 mm in the diagonal and 2.5/28 mm Susana Xience V drug-eluting stent in the LAD.
Cardiac Magnetic Resonance Imaging (MRI):�
01/05/23. Performed at [facility]. EF 59%. LVEDV 96 mL, Max wall thickness 18 mm, LV mass index 53.33 g/m2, LGE less than 5%. Normal LV cavity size and systolic function. There is asymmetric septal hypertrophy up to 18 mm at the mid-septum. There is mild
SHERLY with flow acceleration seen at the LVOT. 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 RVEF 58%
Echocardiogram:
07/13/2023 01:31:57 PM > nl LV size, asymmetric septal hypertrophy, no LV cavity or outflow tract obstruction, LVOT peak gradient at rest 5 mmHg, LVOT peak gradient with Valsalva 7 mmHg, incompletely visualized endocardium but no regional wall
motion abnormalities are noted in the visualized segment, LVEF 59% (Biplane), GLS 18.1%, grade I DD, reduced tissue Doppler velocity, nl RV size and function, TAPSE 1.8 cm, mildly dilated LA, LA volume 38 mL/m2, nl RA, mild MV leaflet thickening,
mild systolic anterior motion of the chordal apparatus is present, mild-mod MR, mild Tr, PASP 23 mmHg, mild AV calcification, mild AR, the jet is centrally directed, trace LA, pericardial fat pad present, nl aortic root size, proximal ascending
aorta is enlarged at 3.5 cm, upper abdominal aorta nl in size.
Recommendations:
Chest pain is atypical and can be reproduced by point palpation of the left chest mid clavicular line 6th rib very similar to the pain she presented with in Sep for which Cor angio found patent LAD stent no new disease. ECG with LBBB and
strain pattern but cannot exclude lateral ischemia. Presenting troponin 0.027 despite 4 days of continuous pain with waxing and waning intensity.
Index of suspicion for acute cor syndrome is not high but it is possible.
She is being admitted to hospitalist.
ER has ordered chest CTA which is pending
My recommendations for now include:
- IV heparin if CTA without evidence of Ao dissection
- Trend troponins
- Serial ECGs
- Check echo in AM
- Maintain mavacamten and beta-jazmin
Discussed with ER
Discussed with patient and all of her questions answered.
Total time 75 min
Data Reviewed
-
EKG: Tracing Personally Visualized and interpreted
Radiology: Image Personally Visualized and interpreted
MRI: Report Reviewed by me
Medical Tests (Nuc Med, Echo etc): Report Reviewed by me and Discussed with Physician
Labs: Labs Reviewed by me, Discussed with Physician and Discussed with Patient
Old Records: Reviewed
[2024-07-09] MEDS: SUBLIMAZE 25 MCG IV (17:52)
[2024-07-09] MEDS: NSS 500 IV (18:35)
[2024-07-09 20:06] LABS: Troponin I 0.103 ng/ml
--- NOTE | 2024-07-09 20:24 | HPS.HSE ---
Family Physician
-
Family Physician: Joann Dimas MD
Chief Complaint
-
Chest pain
History of Present Illness
This is an 84-year-old female with a past medical history of hypertrophic cardiomyopathy EF of around 60%, CAD status post stenting, GERD, CKD, hyperlipidemia, recent TIA who presents to the emergency department with worsening chest pain that is
different from her baseline.
Patient reports history of chronic dyspnea on exertion and lightheadedness. Over the last few weeks she has had increasing stress due to ambulatory dysfunction and nocturia from spouse. Last 4 days reports intermittent chest pressure over the left
chest. However today there is a difference in the quality and severity of her symptoms. She had was with substernal chest pressure lasting hours that was radiating to bilateral shoulders and back today. She also had worsening of feeling of
shortness of breath and lightheadedness. She had an episode of nausea. She denied diaphoresis. There was no vomiting. She denied pleuritic symptoms. Patient took 4 baby aspirin's. Pain improved by the time she arrived in the emergency
department but was still at least a 4 out of 10. She recently completed a course of Plavix for TIA about a week ago.
In the emergency department blood pressure was initially 93/68 which is around her baseline. Pulse 74 she was satting 100%. Initial troponin was 0.027, a repeat troponin later on was 0.1. ECG shows a normal sinus rhythm at a rate of 72 with a new
left bundle branch block compared to April. She had T wave inversions in the lateral leads. Chest x-ray was clear. She had a CT angiogram which was negative for dissection. CBC was unremarkable chemistries were within normal limits. Patient
was seen by cardiology.
Medical History
Past Medical History
Past Medical History: Reports CAD (s/pPCI), GERD, Hypercholesterolemia and Other (Hypertrophic cardiomyopathy)
Additional Past Medical History:
CKD
Past Surgical History: Reports Appendectomy, Orthopedic (Left total knee replacement) and Other (Lumpectomy left breast)
Additional Past Surgical History:
C7-T1 IL SALLY
Social History
Tobacco: Non-smoker
Alcohol: None
Drug: None
Personal:
Living: With Family
Employment: Retired
Family History
Family History: Not pertinent
Allergies / Home Medications
Allergies reflects when Allergies were last updated in [facility].
Home Medications with original date entered in [facility]
Allergy/Medication List:
Allergies
Allergy/AdvReac Type Severity Reaction Status Date / Time
aspirin Allergy Nausea / Verified 08/31/23 12:19
Vomiting
Cephalosporins Allergy Unknown Verified 08/31/23 12:19
iodine Allergy Unknown Verified 08/31/23 12:19
NSAIDS (Non-Steroidal Allergy Unknown Verified 08/31/23 12:19
Anti-Inflamma
penicillin G Allergy Nausea / Verified 08/31/23 12:19
Vomiting
Penicillins Allergy Nausea / Verified 08/31/23 12:19
Vomiting
Salicylates * Allergy Nausea / Verified 08/31/23 12:19
Vomiting
Sulfa (Sulfonamide Allergy Nausea / Verified 08/31/23 12:19
Antibiotics) Vomiting
sulfamethoxazole Allergy Nausea / Verified 08/31/23 12:19
Vomiting
trimethoprim Allergy Nausea / Verified 08/31/23 12:19
Vomiting
verapamil Allergy Shortness Verified 08/31/23 12:19
of Breath
Home Medications
pantoprazole 40 mg tablet,delayed release 40 mg PO NOON Gastrointestinal issue 09/30/20
ascorbic acid (vitamin C) 250 mg tablet (Vitamin C) 250 mg PO NOON 07/09/24
aspirin 81 mg chewable tablet 81 mg PO NOON 07/09/24
atorvastatin 40 mg tablet 40 mg PO NOON 07/09/24
biotin 10,000 mcg chewable tablet (Hair, Skin and Nails (biotin)) 10,000 mcg PO NOON 07/09/24
cholecalciferol (vitamin D3) 25 mcg (1,000 unit) tablet (Vitamin D3) 25 mcg PO NOON 07/09/24
cyanocobalamin (vitamin B-12) 500 mcg tablet 500 mcg PO NOON 07/09/24
mavacamten 5 mg capsule (Camzyos) 5 mg PO NOON 07/09/24
metoprolol succinate 25 mg tablet,extended release 24 hr (Toprol XL) 25 mg PO NOON heart disease/condition 07/09/24
Review of Systems
-
History Source: Patient
Constitutional: Reports No Symptoms
EENT: Reports No Symptoms
Respiratory: Reports No Symptoms
Cardiac: Reports Chest Pain
Abdomen/GI: Reports Nausea
: Reports No Symptoms
Musculoskeletal: Reports No Symptoms
Skin: Reports No Symptoms
Neurological: Reports No Symptoms
Endocrine: Reports No Symptoms
Hematologic/Lymphatic: Reports No Symptoms
Psych: Reports No Symptoms
Physical Exam
Vital Signs
Vital Signs
Temp Pulse Resp BP Pulse Ox
97.9 F 82 16 125/69 97
07/09/24 15:15 07/09/24 20:15 07/09/24 20:15 07/09/24 20:15 07/09/24 20:15
Physical Exam
General: Well Developed, Well Nourished and No Apparent Distress
HEENT: NormoCephalic, Anicteric, Moist mucous membranes, Atraumatic and PERRLA
Respiratory: Clear
Cardiac: S1/S2 and Regular Rhythm
Breast: Deferred by me
GI: Soft, Non Tender, Non Distended and Normal Bowel Sounds
Rectal: Deferred by Provider
Genito-urinary: Deferred by me
Musculoskeletal: No Clubbing, No Cyanosis and No Edema
Skin: Warm
Neuro: AO x 3
Hematologic/Lymphatic: No Lymphadenopathy
Psych: Calm
Laboratory Results
-
07/09/24 15:21
07/09/24 15:21
Laboratory Results
APTT 34.1 Sec (23.4-35.0) 07/09/24 16:00
Total Bilirubin 1.1 mg/dl (0.2-1.3) 07/09/24 15:21
AST 33 U/L (14-36) 07/09/24 15:21
ALT 20 U/L (0-35) 07/09/24 15:21
Alkaline Phosphatase 59 U/L (38-126) 07/09/24 15:21
Troponin I 0.103 ng/ml H* D 07/09/24 19:34
Data Reviewed
-
Diagnostic Radiology: Image Personally Visualized and interpreted
CT Scan: Report Reviewed by me
Medical Tests (Nuc Med, Echo, EKG etc): Image Personally Visualized and interpreted
Lab Data: Labs Reviewed by me
Old Records: Reviewed
Impression/Plan
-
IMPRESSION:
84 F w/ HCM, CAD s/p stents, EF ~50%, Non ischemic Myocardial injury last year, recent TIA presenting with a few days of BARCLAY, then typical chest pain today improved with aspirin. New changes on ECG with new LBBB and dynamic ST changes without st
elevation. Troponin 0.027 -> 0.1. Had a cath last year with 30% stent stenosis noted and no new interventions perfomed. Seen by cardiology with recs.
PLAN:
1. NSTEMI - Currently pain is 2/10
- admit to ivu
- aspirin, heparin gtt
- continue statin
- trend trops and ECG
- echo in am
- cardiac diet for now
2. HCM
- BP around 95/60 at baseline. No signs of overt heart failure
- continue mavacamten per cards
- continue metoprolol 25 mcg
3. Dyspnea - Likely related to cardiac condition. No PE
- check excercise o2 sat for possible home O2
DVT PPX - on heparin gtt
Code status - Full Code
--- NOTE | 2024-07-09 23:08 | PTCARENOTE ---
Pt. received from ED on stretcher. Pt. transferred over to IVU bed with no problems. Pt. AOx3, tele reading NSR w BBB. BP hypotensive 88-89/60s-70s. Pt. states her baseline SBP is in the 90s. Pt. arriving on heparin drip at 650units/hr, PTT drawn at
2245, awaiting results. Admission completed. RN orients pt to room and explains plan of care to patient. Pt. verbalizes understanding. Call brown within reach. Continuing to monitor at this time.
[2024-07-09 23:14] LABS: Troponin I 0.224 ng/ml
[2024-07-09 23:24] LABS: APTT > 200 Sec (23.4-35.0)
--- NOTE | 2024-07-09 23:32 | PTCARENOTE ---
PTT resulted greater than 200. Heparin stopped, will be resumed in 2 hours. Provider notified per policy. Continuing to monitor at this time.
[2024-07-10] VITALS (32 sets, daily range): BP systolic 72–128; BP diastolic 45–82
[2024-07-10 04:13] LABS: Blood Urea Nitrogen 26 mg/dl (7-17); Calcium 8.8 mg/dl (8.4-10.2); Carbon Dioxide 19 mmol/L (22-30); Chloride 103 mmol/L (98-107); Estimated Creatinine Clearance 33 ml/min; Glucose 91 mg/dl (70-99); Potassium 4.3 mmol/L (3.5-5.1); Sodium 133 mmol/L (135-145); eGFR > 60.00
[2024-07-10 04:25] LABS: Troponin I 0.548 ng/ml
[2024-07-10] MEDS: MAALOX 30 ML PO ×2 (04:38→07:38)
[2024-07-10 05:23] LABS: APTT 126.9 Sec (23.4-35.0)
[2024-07-10] MEDS: NSS 250 IV ×2 (07:45→08:45)
--- NOTE | 2024-07-10 07:55 | PTCARENOTE ---
Pt c/o indigestion and chest discomfort, rated 9/10, nauseous, requesting Maalox. HR 70's in SR, BP 76/58. EKG obtained. Maisha Rossi notified and came to see Pt. Maalox given with some relief, rates discomfort 6/10 now. 250 ml NSS bolus ordered
and started. BP 80/56 currently, denies dizziness, lightheadedness while lying in bed.
[2024-07-10] MEDS: COLACE PO (08:00)
--- NOTE | 2024-07-10 08:17 | W.PN.CARDCBS ---
Addendum entered and electronically signed by Willian Pavon DO 07/10/24 11:29:
I saw and examined the patient.
The Composition Weatherboard Installer's note was reviewed and I agree with the note.
Comment:
Plan:
Troponins continue to trend up.
Urgent echo with new motion abnormality apex and worsening MR now severe.
Pt with known CAD including stents to LAD
Chest CT no dissection or PE
Discussed cath and pt is agreeble and prefers eval of coronary anatomy.
Requested records from outside medicare interviewer whom she sees for hx HCOM.
Discussed with nursing and with interventional cardiology. Pt takes Mavacamten
Original Note:
Today's Communication / Plan
-
NPO for possible cath today
continue trending troponin and symptoms
will contact her team at [facility] who manages her HOCM
Impression / Plan
-
Assessment:
Chest pain
troponin trending up, peak 0.548
HOCM
Coronary artery disease
10/01/20 atherectomy to the LAD and diagonal bifurcation and T stenting with a 2.5/8 mm in the diagonal and 2.5/28 mm Susana Xience V drug-eluting stent in the LAD.
10/12/22 Cor angio for CP patent LAD stents and no new significant cor dz
h/o Traumatic brain injury
she fell out of her bed and hit her head, developed hallucinations approximately 3 weeks later, found to have right subdural collection with subacute to chronic SDH at [facility] 10/2021Hyperlipidemia with statin intolerance
Left breast cancer status postlumpectomy, chemotherapy and radiation 2001.
Sleep apnea
Fibromyalgia
Osteoarthritis
Dyslipidemia (h/o poorly karla statin but recently tolerating atorvastatin)
Anxiety and depression
Recent Testing:
Cardiac catheterizations:�
10/12/22. RHC/LHC. ��DOMINANCE: Right, LEFT MAIN: Normal, �LEFT ANTERIOR DESCENDING: The LAD arises normally from the left main and runs in the anterior interventricular groove. The stents in the mid LAD and diagonal branch remain widely patent.
The diagonal stent has 30% in-stent restenosis at its origin. The remainder of the LAD becomes a small caliber vessel. CIRCUMFLEX: The circumflex is a medium caliber nondominant vessel giving rise to a sizable bifurcating OM1. The circumflex
continues in the AV groove supplying several small posterolateral branches. �RIGHT CORONARY ARTERY: The right coronary artery is a dominant vessel that has a 50% stenosis in its midportion. The iFR measured above the ischemic threshold at 0.97 and
PCI is deferred
10/01/20. Dominance: right. Left Main: nl. LAD: proximal and mid LAD calcified. Complex trifurcation lesion involving the small first diagonal, huge second diagonal and LAD with a hazy 75% LAD stenosis just before diagonal and diffuse disease
thereafter. Ostial second diagonal has 70% stenosis. Circumflex: Luminal irregularities. RCA: 65% stenosis of the mid RCA. Left Ventriculography: LV small and ballet shoe appearance and LVH. EF is 68%. Patient underwent successful complex CSI
diamondback atherectomy to the LAD and diagonal bifurcation and T stenting with a 2.5/8 mm in the diagonal and 2.5/28 mm Susana Xience V drug-eluting stent in the LAD.
Cardiac Magnetic Resonance Imaging (MRI):�
01/05/23. Performed at [facility]. EF 59%. LVEDV 96 mL, Max wall thickness 18 mm, LV mass index 53.33 g/m2, LGE less than 5%. Normal LV cavity size and systolic function. There is asymmetric septal hypertrophy up to 18 mm at the mid-septum. There is mild
SHERLY with flow acceleration seen at the LVOT. 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 RVEF 58%
Echocardiogram:
07/13/2023 01:31:57 PM > nl LV size, asymmetric septal hypertrophy, no LV cavity or outflow tract obstruction, LVOT peak gradient at rest 5 mmHg, LVOT peak gradient with Valsalva 7 mmHg, incompletely visualized endocardium but no regional wall
motion abnormalities are noted in the visualized segment, LVEF 59% (Biplane), GLS 18.1%, grade I DD, reduced tissue Doppler velocity, nl RV size and function, TAPSE 1.8 cm, mildly dilated LA, LA volume 38 mL/m2, nl RA, mild MV leaflet thickening,
mild systolic anterior motion of the chordal apparatus is present, mild-mod MR, mild Tr, PASP 23 mmHg, mild AV calcification, mild AR, the jet is centrally directed, trace ME, pericardial fat pad present, nl aortic root size, proximal ascending
aorta is enlarged at 3.5 cm, upper abdominal aorta nl in size.
Echocardiogram 11/24/2023 ([facility]): nl LV size, asymmetric basal septal hypertrophy, no significant LVOT obstruction, LVOT peak at rest 16mmHg, LVOT peak w/ Valsalava 21mmHg, no wall motion abnormalities, EF 67%, nl RV size and borderline fxn,
mild-mod MR, mild SHERLY of ant leaflet; mild TR, prox segment asc aorta 3.3 cm, no significant change compared to 09/01/23
Recommendations:
recurrent CP today up to 8/10 with troponin trending up, current 0.548. CP partially relieved with Maalox, current 6/10. Repeat troponin now. EKG NSR, LBBB
keep NPO for poss cath today
hypotensive with BP 76/ - rec'd NSS 250cc. No SL NTG due to hypotension
Cath Sep for similar CP- patent LAD stent no new disease. ECG with LBBB and strain pattern but cannot exclude lateral ischemia. Presenting troponin 0.027 despite 4 days of continuous pain with waxing and waning intensity, now trending up to
0.54
Index of suspicion for acute cor syndrome is not high but it is possible.
ECHO now
chest CTA no dissection or PE
Maintain mavacamten and beta-jazmin for HOCM. Will contact her provider at [facility].
Total time 60 min
Progress Note - Chief Growth Officer
Subjective
Date of Service: July 10, 2024
8/10 CP this morning, improved to 6/10 with Maalox
trending troponins - 0.103--->0.548 at 0300, repeating now
BP 76/ -no dizziness, rec'd NSS 250 cc
Objective
Labs:
07/09/24 15:21
07/10/24 03:17
Labs
Hgb 12.7 g/dL (12.0-16.0) 07/09/24 15:21
Hct 36.5 % (37.0-47.0) L 07/09/24 15:21
Plt Count 154 10^3/uL (130-400) 07/09/24 15:21
APTT 126.9 Sec (23.4-35.0) H 07/10/24 04:56
Sodium 133 mmol/L (135-145) L 07/10/24 03:17
Potassium 4.3 mmol/L (3.5-5.1) 07/10/24 03:17
BUN 26 mg/dl (7-17) H 07/10/24 03:17
Creatinine 0.9 mg/dL (0.6-1.0) 07/10/24 03:17
Glucose 91 mg/dl (70-99) 07/10/24 03:17
Troponins
07/09/24 07/09/24 07/09/24
15:21 19:34 22:44
Troponin I 0.027 0.103 H* D 0.224 H* D
07/10/24
03:17
Troponin I 0.548 H* D
Vital Signs and I&O:
Vital Signs
Temp Pulse Resp BP Pulse Ox
98.3 F 72 20 93/63 96
07/10/24 05:29 07/10/24 05:15 07/09/24 22:10 07/10/24 02:45 07/10/24 05:29
Vital Signs
Temp Pulse Resp BP Pulse Ox
98.3 F 72 20 93/63 96
07/10/24 05:29 07/10/24 05:15 07/09/24 22:10 07/10/24 02:45 07/10/24 05:29
Physical Exam
Physical Exam
GEN: No distress, awake, Ox3
HEENT: supple, anicteric, mmm
LUNGS: CTA, no wheezes/rales
CV: Reg, S1/S2, 3/6 DARLENE heard t/o precordium
ABD: soft, BS+, NT/ND
EXT: No edema
NEURO: Gross non-focal
SKIN: No rash
[2024-07-10 08:51] LABS: APTT 74.6 Sec (23.4-35.0)
[2024-07-10 09:06] LABS: Troponin I 0.694 ng/ml
[2024-07-10] MEDS: ZOFRAN 4 MG IV (09:24)
--- NOTE | 2024-07-10 09:26 | PTCARENOTE ---
Pt CP down to 4 or 5, currently having ECHO. Pt also continues to have nausea. Med w/ Zofran 4 mg IV as ordered.
--- NOTE | 2024-07-10 10:14 | PTCARENOTE ---
Pt resting quietly, she reports some relief from nausea after having Zofran. BP 78/58. Pt denies symptoms, Maisha Rossi aware.
[2024-07-10] MEDS: PROTONIX 40 MG PO (11:36)
[2024-07-10] MEDS: LOW STRENGTH ASPIRIN 81 MG PO (11:37)
[2024-07-10] MEDS: LIPITOR 40 MG PO (11:37)
--- NOTE | 2024-07-10 12:17 | CM ---
CM following for DC planning needs.
Met w/ patient at bedside to complete initial assessment.
Pt. resides w/ spouse, with whom she is caregiver in a private 2 story home w/ 1 JOHNY.
In the home, there are RW, SPC, and wheelchair + stairglide to second level. Pt., however, uses no assisted device for ambulation.
Pt. has caregiver support for her spouse several times per week but is seeking more help. She has resources and prefers to use her own rather than home health agencies.
Pt. has family closeby that assist. Dtr., however, has been in [place] for the past 6 weeks and is of the most support.
Pt. has Rx plan and uses [facility] on [address] for prescription needs.
Pt. does not think that she will have any needs at DC.
Will follow closely.
[2024-07-10] MEDS: SOLU-CORTEF 100 MG IV (13:00)
--- NOTE | 2024-07-10 13:08 | PTCARENOTE ---
Pt premedicated with Solucortef 100 mg IV as ordered.
--- NOTE | 2024-07-10 13:32 | PTCARENOTE ---
Pt voided small amt tha urine 50 ml on bedpan. Bladder scanned for 407 ml. Pt assisted OOB to BSC and voided 150 ml of dk tha urine. Pt denies any abdominal discomfort.
--- NOTE | 2024-07-10 14:34 | W.PN.HOSP.TC ---
Addendum entered and electronically signed by Johnson Lambert MD 07/10/24 21:05:
Attending Addendum-
I saw and evaluated the patient. I reviewed the resident�s note and agree with findings and plan as documented in the resident�s note. Sub: Patient continues to have intermittent left sides CP. Denies BARCLAY or SOB. CP exacerbated by exertion. Full 12
point ROS reviewed and negative except as documented Exam: Vitals reviewed in chart GEN-NAD heart RRR 3/6 blowing murmur rad to axilla lungs crckles at bases abd soft LE no edema
PLAN:
# NSTEMI
- cont care in ivu -requires close cardiac monitoring
- cont aspirin, heparin gtt follow aptt
- continue statin
- trops trending up
- echo 07/10- Moderately reduced Left ventricular ejection fraction 35-40%.
Distal septum and apex are akinetic. The distal inferior, distal anterior
and distal lateral are hypokinetic. HOCM.
Systolic anterior motion of the anterior mitral valve leaflet.
Severe mitral regurgitation.
Mild aortic regurgitation.
Moderate tricuspid regurgitation. Estimated pulmonary artery pressure of 40-45 mmHg.
- cath 07/10-Modest progression of coronary disease in mid RCA and at the origin of the first diagonal branch. 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
- cont diet for now
# Severe mitral regurgitation
- SHERLY with worsening LV function
- d/w cards
- transfer to [facility] for further care
-
# Cardiomyopathy; possible takotsubo
- f/u [facility] for further care
- cont BB and asa
# HOCM
- Lower BP's at baseline. No signs of overt heart failure
- Hold mavacamten per cards
- Continue metoprolol 25 mcg
- transfer to [facility] when able
# Acute Hypoxemic Respiratory Failure
- secondary to cardiac causes
- continue for now
# GERD- cont protonix
# HLD- cont atorvastatin
DVT PPX - on heparin gtt
Code status - Full Code
Dispo transfer to [facility] when able
Time spent coordinating care, review of plan of care with resident, personally reviewed records in EMR, med rec, consults, notes, labs, radiology, d/w nursing dr. cates CM re transfer � 60 mins
Original Note:
Today's Communication/Plan
-
Cardiac cath pending
Management per cards
Continue in IVU
Assessment / Plan
Assessment / Plan
Pleasant 84-year-old female past medical history of hypertrophic cardiomyopathy, CAD status post stents, nonischemic myocardial injury last year, recent TIA presenting a few days with typical chest pain improved with aspirin. Troponins uptrending,
urgent echo and cath likely today.
#NSTEMI
On telemetry in IVU
Aspirin, heparin drip
Continue statin
Troponins uptrending
Routine EKG
Echo 35-40%
Left ventricle is small in size. Moderately reduced left ventricular systolic
function. Left ventricular ejection fraction is 35-40% by visual assessment.
The distal septum and apex are akinetic. The distal inferiror, distal anterior
and distal lateral are hypokinetic. HOCM. LVOT gradients difficult to assess
due to severe MR.
Systolic anterior motion of the anterior mitral valve leaflet. Severe mitral
regurgitation.
Mild aortic regurgitation.
Moderate tricuspid regurgitation. Estimated pulmonary artery pressure of 40-45
mmHg.
Compared to the previous echo from Sep 2022, which was reviewed, EF was 65-
70%, moderate asymmetrical septal hypertrophy with LVOT gradients were present
and mild to moderate MR were seen in that study.
N.p.o. for cardiac cath
Cardiology following
#Hypertrophic cardiomyopathy
BP around 95/60 at baseline. No overt signs of heart failure
Continue Mavik CAM 10 per cardiology recommendation
Continue metoprolol 25
#Dyspnea
Likely secondary to cardiac etiology
Monitor
#Hypokalemia
Monitor BMP
#GERD
continue pantoprazole
#HLD
Continue statin
DVT prophylaxis on heparin drip
Diet n.p.o.
Status full code
Anticipated Discharge: > 48 hours
Subjective/Interval History
-
Date of Service: July 10, 2024
Objective Data
-
Labs:
Laboratory Results
07/10/24 07/10/24 07/10/24
03:17 04:56 08:21
APTT 126.9 H 74.6 H
Sodium 133 L
Potassium 4.3
Chloride 103
Carbon Dioxide 19 L
BUN 26 H
Creatinine 0.9
Glucose 91
Calcium 8.8
Vital Signs:
Vital Signs
Temp Pulse Resp BP Pulse Ox
97.8 F 86 16 85/66 94
07/10/24 11:18 07/10/24 11:18 07/10/24 11:18 07/10/24 11:15 07/10/24 11:18
Review of Systems
-
History Source: Patient
Respiratory: Reports No Symptoms
Cardiac: Reports Chest Pain
Abdomen/GI: Reports Nausea; Denies Vomiting or Diarrhea
Genitourinary: Reports No Symptoms
Neuro: Reports No Symptoms
Physical Exam
-
General: No Apparent Distress
HEENT: Normocephalic
Respiratory: Clear to Auscultation
Cardiac: S1/S2 and Murmur
GI: Soft and Nontender
Musculoskeletal: No Edema
Skin: Warm
Neuro: AO x 3
Psych: Calm
[2024-07-10 15:55] LABS: Troponin I 0.735 ng/ml
--- NOTE | 2024-07-10 16:23 | PTCARENOTE ---
Rec'd Pt post cardiac cath, drowsy but awakens easily, answers questions approp. R femoral dsg D+I.
--- NOTE | 2024-07-10 16:26 | ITS.CL.CATH ---
Marketing Operations Specialist - Catheterization
Cardiac Catheterization
Procedure Report:
LEFT HEART CATHETERIZATION
Date of Procedure: July 10, 2024
Referring: Dr. Erwin Preston
PROCEDURES:
1. Left heart catheterization with coronary and single-plane left ventriculography
INDICATION: Chest pain with elevated troponin. Hypertrophic cardiomyopathy with new severe mitral regurgitation
ACCESS: Right common femoral artery, 6 [place] sheath
HEMODYNAMICS : (mmHg)
AO (s/d) : 80/59
LV [place](s/d) : 160/13, LVEDP: 24 (end-hole catheter at LV apex)
LV Subvalve (s) : 80 mmHg (end-hole catheter just below AV)
CORONARY FINDINGS
DOMINANCE: Right
LEFT MAIN: Normal
LEFT ANTERIOR DESCENDING: The LAD arises normally from the left main and runs in the anterior interventricular groove. There is a stent in the mid LAD spanning the origin of the only sizable diagonal branch. The diagonal is also stented
proximally. The mid LAD stent remains widely patent. The proximal/unstented segment in the diagonal branch at its origin and has a smooth 60-70% stenosis that may be slightly worse when compared to the angiogram from September 2022. There is a
prominent myocardial bridge in the mid LAD. The distal LAD wraps around the apex supplying a portion of the inferior wall.
CIRCUMFLEX: The circumflex is a medium caliber nondominant vessel giving rise to a sizable bifurcating OM1. The circumflex continues in the AV groove terminating in a small posterolateral branches
RIGHT CORONARY ARTERY: The right coronary artery is a dominant vessel with a 60% smooth stenosis in its midportion that may have angiographically progressed slightly since the last catheterization in September 2022. The PDA is small but patent
VENTRICULOGRAPHY: Left ventriculography is performed in an VILA projection. The digital single-plane left ventricular ejection fraction is visually estimated at 30-35% with mid to distal anterior, apical, and distal inferior hypokinesis. The base
of the heart moves best. There is 4+ mitral regurgitation filling to a dilated left atrium
RADIATION SUMMARY: Fluoro Time (min): 4.9, Dose (mGy): 325, DAP (Gy.cm2) : 23.9
Closure Device: 6 [place] Angio-Seal RFA
CONCLUSIONS
1. Severe mitral regurgitation
2. Cardiomyopathy; possible takotsubo
3. Modest progression of coronary disease in mid RCA and at the origin of the first diagonal branch. 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
RECOMMENDATIONS
1. I discussed angiographic findings with Dr. Jason Rizzo at the [facility].
2. Will discontinue Camzios.
3. Will transfer to the [facility] Heart Failure service given SHERLY with severe mitral regurgitation and new / worsening LV dysfunction
Copy to: Dr. Jason Rizzo, Dr. Erwin Preston
--- NOTE | 2024-07-10 18:01 | W.DCSUMMARY ---
Discharge Summary
Discharge Data
Date of Admission: 07/09/24
Date of Discharge: 07/12/24
-
Pending Results: No
Hospital Course
Primary diagnosis:
HOCM with SHERLY with severe mitral regurgitation and new / worsening LV dysfunction
Secondary diagnosis:
Hyperlipidemia
Coronary artery disease status post CABG
GERD
84-year-old female with past medical history of HOCM, CAD s/p stent presented to the [facility] with chest pain for the previous 4 days waxing and waning in intensity. In ED blood pressure around baseline 93/68, pulse 74, saturation 100%.
Initial troponin 0.027, repeat 0.1. ECG showed normal rhythm with left bundle branch block compared to baseline. Had T wave inversion in the lateral leads. CT angiogram ruled out dissection and PE. Patient was diagnosed with NSTEMI and admitted
for observation overnight and cardiology consulted. Chest pain partially relieved with aspirin and maalox. Troponins continue to trend upward from 0.224- 0.548-0.694 this morning. This morning BP dropped to 72.62. Fluid boluses ordered.
Cardiology ordered urgent echo. Echo revealed left ventricular ejection fraction of 35 to 40% with distal septum and apex akinetic. Distal inferior, distal anterior and distal lateral wall are hypokinetic. (see below) Cardiac cath is planned for
afternoon. Cath revealed HOCM with SHERLY with severe mitral regurgitation and new / worsening LV dysfunction (see below). Mavacamten for heart contractility and metoprolol on hold per cardiology recommendations. Cardiology recommended transfer to
[facility] with receiving physician Maribeth Baeza for further evaluation as echo and cath findings significantly different from baseline. Midodrine 5mg TID added per cards for BP improvement.
07/10/24 Echo
Left ventricle is small in size. Moderately reduced left ventricular systolic
function. Left ventricular ejection fraction is 35-40% by visual assessment.
The distal septum and apex are akinetic. The distal inferiror, distal anterior
and distal lateral are hypokinetic. HOCM. LVOT gradients difficult to assess
due to severe MR.
Systolic anterior motion of the anterior mitral valve leaflet. Severe mitral
regurgitation.
Mild aortic regurgitation.
Moderate tricuspid regurgitation. Estimated pulmonary artery pressure of 40-45
mmHg.
Compared to the previous echo from Sep 2022, which was reviewed, EF was 65-
70%, moderate asymmetrical septal hypertrophy with LVOT gradients were present
and mild to moderate MR were seen in that study.
07/10/24 Cardiac Cath
CONCLUSIONS
1. Severe mitral regurgitation
2. Cardiomyopathy; possible takotsubo
3. Modest progression of coronary disease in mid RCA and at the origin of the first diagonal branch. 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
RECOMMENDATIONS
1. I discussed angiographic findings with Dr. Jason Rizzo at the [facility].
2. Will discontinue Camzios.
3. Will transfer to the [facility] Heart Failure service given SHERLY with severe mitral regurgitation and new / worsening LV dysfunction
Discharge Plan
-
Patient Disposition: Acute Care Hospital
Condition: Serious
Discharge Orders:
Discharge Patient (As Directed); Ordered 07/12/24
Ordered By: Teresa Mast
Discharge Date and Time
Print Language: DIVEHI
[2024-07-10] MEDS: COLACE 100 MG PO (19:36)
[2024-07-10 19:57] LABS: Troponin I 0.651 ng/ml
--- NOTE | 2024-07-10 20:15 | PTCARENOTE ---
Pt. received at change of shift. Pt. Aox3 when asked time, place and location, but forgetful at times. Pt. tele reading NSR w/ BBB. BP hypotensive. aware. Awaiting transfer to [facility]. Pt. not complaining of pain or dizziness at this time. Bed alarm
placed under patient. RN verbalizes plan of care, pt. verbalizes understanding. Call brown within reach. Continuing to monitor at this time.
[2024-07-10] MEDS: CALCIUM GLUCONATE 100 IV (20:20)
[2024-07-11] VITALS (33 sets, daily range): BP systolic 72–99; BP diastolic 54–72; BMI 22.3
[2024-07-11 03:57] LABS: % Basophils 0.3 % (0-2); % Eosinophils 0.1 % (0-6); % Immature Granulocytes 0.4 % (0-0.5); % Lymphocytes 9.6 % (20.5-51.1); % Monocytes 8.8 % (1.7-9.3); % Neutrophils 80.8 % (42.2-75.2); Absolute Immature Granulocytes 0.1 10^3/uL (0-0.05); Absolute Lymphocytes 1.3 10^3/uL (1.2-3.4); Absolute Monocytes 1.2 10^3/uL (0.1-0.6); Absolute Neutrophils 11.2 10^3/uL (1.4-6.5); Hematocrit 37.2 % (37.0-47.0); Hemoglobin 13.3 g/dL (12.0-16.0); Mean Corp Hgb Conc. 35.8 g/dL (33.0-37.0); Mean Corpuscular Hgb 33.5 pg (27.0-31.0); Mean Corpuscular Volume 93.7 fL (81.0-99.0); Mean Platelet Volume 10.8 fL (7.4-10.4); Nucleated Red Blood Cells % 0 %; Platelet Count 148 10^3/uL (130-400); Red Blood Cell Count 3.97 10^6/uL (4.20-5.40); Red Cell Dist. Width 13.1 % (11.5-14.5); White Blood Cell Count 13.8 10^3/uL (4.8-10.8)
[2024-07-11 04:11] LABS: Blood Urea Nitrogen 41 mg/dl (7-17); Calcium 8.8 mg/dl (8.4-10.2); Carbon Dioxide 19 mmol/L (22-30); Chloride 101 mmol/L (98-107); Estimated Creatinine Clearance 25 ml/min; Glucose 98 mg/dl (70-99); Magnesium 1.9 mg/dl (1.6-2.3); Potassium 4.9 mmol/L (3.5-5.1); Sodium 132 mmol/L (135-145); eGFR 44.64
--- NOTE | 2024-07-11 07:49 | W.PN.CARDCBS ---
Addendum entered and electronically signed by Erwin Presotn MD 07/11/24 08:34:
Some hypotension overnight, some dyspnea, better with oxygen. Dizzy standing, still with left chest discomfort, troponin was 0.55, more recently 1.2
PMH: HCOM, PCI to LAD and diagonal, left breast cancer, chemoradiation 2001, LENNY, fibroma algia, statin intolerance hyperlipidemia, anxiety depression, subdural
PSH: Left breast lumpectomy
Allergies, home meds: Per summary screen
Current meds: IV heparin on hold, aspirin 81 mg a day, atorvastatin 40 mg a day, metoprolol ER 25 mg a day, pantoprazole 40 mg a day, midodrine 3 times daily to start today
/, pulse 76,, weight is 51.8 kg, if accurate down 3.4 kg since the , no acute distress, head neck exam unremarkable, lungs are clear, JVD okay, loud systolic murmur, relatively tachycardic, abdomen benign, not much edema,
EKG from sinus rhythm left bundle with ST and T changes
Hemoglobin 13.3, platelets 148, BUN and creatinine 41 and 1.2, potassium 4.9, sodium 132, peak troponin thus far 1.2, follow-up pending, proBNP pending
Assessment:
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
NICM, EF 35-40%, new decline in EF on mavacamten
Elevated troponin, type 2 OR secondary to above
Coronary artery disease
10/01/20 atherectomy to the LAD and diagonal bifurcation and T stenting with a 2.5/8 mm in the diagonal and 2.5/28 mm Susana Xience V drug-eluting stent in the LAD.
10/12/22 Cor angio for CP patent LAD stents and no new significant cor dz
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
h/o Traumatic brain injury
she fell out of her bed and hit her head, developed hallucinations approximately 3 weeks later, found to have right subdural collection with [facility]acute [facility]
Hyperlipidemia with statin intolerance
Left breast cancer status postlumpectomy, chemotherapy and radiation 2001
Sleep apnea
Fibromyalgia
Osteoarthritis
Dyslipidemia (h/o poorly karla statin but recently tolerating atorvastatin)
Anxiety and depression
Plan:
Her coronary anatomy is stable, but she has ongoing chest pain, loud murmur of LVOT gradient and mitral regurgitation, EF 35-40%, mavacamten currently on hold. Metoprolol on hold.
Will be desirable to restart metoprolol if possible. For now, add midodrine 5 mg 3 times daily.
We will continue to trend troponin, check proBNP.
Okay to stop heparin at this time.
Transfer to [facility]. Await their assessment regarding eventual restart of mavacamten, etc. Is patient candidate for alcohol septal ablation? Surgical septal myotomy, etc?
Original Note:
Today's Communication / Plan
-
add midodrine
trend trop to peak
awaiting transfer to [facility]
Impression / Plan
-
Primary Vice President Of Academic Affairs: Dr. RIDGE Preston/Dr. Maritza Rizzo at [facility]
Assessment:
Chest pain
Severe MR
NICM, EF 35-40%
Elevated troponin, type 2 OR secondary to above
Hypotension
HOCM
Coronary artery disease
10/01/20 atherectomy to the LAD and diagonal bifurcation and T stenting with a 2.5/8 mm in the diagonal and 2.5/28 mm Susana Xience V drug-eluting stent in the LAD.
10/12/22 Cor angio for CP patent LAD stents and no new significant cor dz
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
h/o Traumatic brain injury
she fell out of her bed and hit her head, developed hallucinations approximately 3 weeks later, found to have right subdural collection with subacute to chronic SDH at [facility] 10/2021
Hyperlipidemia with statin intolerance
Left breast cancer status postlumpectomy, chemotherapy and radiation 2001
Sleep apnea
Fibromyalgia
Osteoarthritis
Dyslipidemia (h/o poorly karla statin but recently tolerating atorvastatin)
Anxiety and depression
Recent Testing:
Cardiac catheterizations:�
10/12/22. RHC/LHC. ��DOMINANCE: Right, LEFT MAIN: Normal, �LEFT ANTERIOR DESCENDING: The LAD arises normally from the left main and runs in the anterior interventricular groove. The stents in the mid LAD and diagonal branch remain widely patent.
The diagonal stent has 30% in-stent restenosis at its origin. The remainder of the LAD becomes a small caliber vessel. CIRCUMFLEX: The circumflex is a medium caliber nondominant vessel giving rise to a sizable bifurcating OM1. The circumflex
continues in the AV groove supplying several small posterolateral branches. �RIGHT CORONARY ARTERY: The right coronary artery is a dominant vessel that has a 50% stenosis in its midportion. The iFR measured above the ischemic threshold at 0.97 and
PCI is deferred
10/01/20. Dominance: right. Left Main: nl. LAD: proximal and mid LAD calcified. Complex trifurcation lesion involving the small first diagonal, huge second diagonal and LAD with a hazy 75% LAD stenosis just before diagonal and diffuse disease
thereafter. Ostial second diagonal has 70% stenosis. Circumflex: Luminal irregularities. RCA: 65% stenosis of the mid RCA. Left Ventriculography: LV small and ballet shoe appearance and LVH. EF is 68%. Patient underwent successful complex CSI
diamondback atherectomy to the LAD and diagonal bifurcation and T stenting with a 2.5/8 mm in the diagonal and 2.5/28 mm Susana Xience V drug-eluting stent in the LAD.
Cardiac Magnetic Resonance Imaging (MRI):�
01/05/23. Performed at [facility]. EF 59%. LVEDV 96 mL, Max wall thickness 18 mm, LV mass index 53.33 g/m2, LGE less than 5%. Normal LV cavity size and systolic function. There is asymmetric septal hypertrophy up to 18 mm at the mid-septum. There is mild
SHERLY with flow acceleration seen at the LVOT. 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 RVEF 58%
Echo 07/13/2023: nl LV size, asymmetric septal hypertrophy, no LV cavity or outflow tract obstruction, LVOT peak gradient at rest 5 mmHg, LVOT peak gradient with Valsalva 7 mmHg, incompletely visualized endocardium but no regional wall motion
abnormalities are noted in the visualized segment, LVEF 59% (Biplane), GLS 18.1%, grade I DD, reduced tissue Doppler velocity, nl RV size and function, TAPSE 1.8 cm, mildly dilated LA, LA volume 38 mL/m2, nl RA, mild MV leaflet thickening, mild
systolic anterior motion of the chordal apparatus is present, mild-mod MR, mild Tr, PASP 23 mmHg, mild AV calcification, mild AR, the jet is centrally directed, trace MN, pericardial fat pad present, nl aortic root size, proximal ascending aorta is
enlarged at 3.5 cm, upper abdominal aorta nl in size.
Echo 11/24/2023 ([facility]): nl LV size, asymmetric basal septal hypertrophy, no significant LVOT obstruction, LVOT peak at rest 16mmHg, LVOT peak w/ Valsalava 21mmHg, no wall motion abnormalities, EF 67%, nl RV size and borderline fxn, mild-mod MR, mild
SHERLY of ant leaflet; mild TR, prox segment asc aorta 3.3 cm, no significant change compared to 09/01/23
ECHO 07/10/24: EF 35 to 40%, distal septum and apex akinetic, distal inferior, distal anterior and distal lateral are hypokinetic, hokum with LVOT gradients difficult to assess due to severe MR, SHERLY of anterior mitral valve leaflet, severe MR, mild
AR, moderate TR, PAP 40 to 45 mmHg
Recommendations:
-Patient presented with chest pain. Troponin up to 1.2, trend to peak
-Underwent cardiac catheterization 07/10 which showed modest progression and CAD of mid RCA and first diagonal branch, with myocardial bridge in distal LAD. no intervention performed
-echo 07/10 with new reduction in EF, 35-40% and SHERLY, severe MR.
-results of cath and echo reviewed with patient 07/11
-remains hypotensive. would attempt to avoid hypotension in setting of HOCM. was given 250cc IVF bolus yesterday. add midodrine 2.5mg TID. continue OP toprol as able
-awaiting transfer to [facility] for evaluation
-after discussion with radio disc jockey at [facility], jamila stopped
-d/w resident. d/w nursing
Progress Note - Vice President Of Academic Affairs
Subjective
Date of Service: July 11, 2024
reported some SOB overnight, improved with supp O2. no CP.
Objective
Labs:
07/11/24 03:47
07/11/24 03:47
Labs
Hgb 13.3 g/dL (12.0-16.0) 07/11/24 03:47
Hct 37.2 % (37.0-47.0) 07/11/24 03:47
Plt Count 148 10^3/uL (130-400) 07/11/24 03:47
APTT 74.6 Sec (23.4-35.0) H 07/10/24 08:21
Sodium 132 mmol/L (135-145) L 07/11/24 03:47
Potassium 4.9 mmol/L (3.5-5.1) 07/11/24 03:47
BUN 41 mg/dl (7-17) H 07/11/24 03:47
Creatinine 1.2 mg/dL (0.6-1.0) H 07/11/24 03:47
Glucose 98 mg/dl (70-99) 07/11/24 03:47
Troponins
07/09/24 07/09/24 07/09/24
15:21 19:34 22:44
Troponin I 0.027 0.103 H* D 0.224 H* D
07/10/24 07/10/24 07/10/24
03:17 08:21 09:00
Troponin I 0.548 H* D 0.694 H* D Cancelled
07/10/24 07/10/24 07/10/24
15:15 15:16 19:14
Troponin I Cancelled 0.735 H* 0.651 H*
07/11/24
03:47
Troponin I 1.200 H*
Vital Signs and I&O:
Vital Signs
Temp Pulse Resp BP Pulse Ox
97.2 F 76 16 99/66 95
07/11/24 07:24 07/11/24 06:00 07/11/24 07:24 07/11/24 06:00 07/11/24 07:24
Vital Signs
Temp Pulse Resp BP Pulse Ox
97.2 F 76 16 99/66 95
07/11/24 07:24 07/11/24 06:00 07/11/24 07:24 07/11/24 06:00 07/11/24 07:24
Intake & Output
07/08/24 07/09/24 07/10/24 07/11/24
07:59 07:59 07:59 07:59
Intake Total 990 / 990
Output Total 325 / 325
Balance 665 / 665
Physical Exam
Physical Exam
GEN: No distress, awake, alert, oriented x3. on supp O2
HEENT: supple, anicteric, mmm, eomi
LUNGS: CTA B/L, no wheezes/rales
CV: Reg, S1/S2, 2/6 holosystolic LSB murmur
ABD: soft, BS+, NT/ND
EXT: No cyanosis, clubbing, edema
NEURO: Gross non-focal
SKIN: Warm, pink, dry. No rash
--- NOTE | 2024-07-11 08:00 | PTCARENOTE ---
resumed care of patient from previous RN at change of shift. Walking rounds completed. Aoox3. NSR w/ BBB. hypotensive with sys BP 80s-90s. aware and ordering midodrine to start today. When stood patient complains of dizziness. intermittent
'pinches' in chest. Awaiting transfer to [facility]. Call brown within reach. Will continue to monitor.
[2024-07-11] MEDS: COLACE 100 MG PO ×2 (08:24→19:33)
--- NOTE | 2024-07-11 10:32 | W.PN.HOSP.TC ---
Addendum entered and electronically signed by Johnson Lambert MD 07/11/24 21:06:
Attending Addendum-
I saw and evaluated the patient. I reviewed the resident�s note and agree with findings and plan as documented in the resident�s note. Sub: Had sob and intermittent CP. CP exacerbated by minimal exertion. Very pleasant. BP's have been on the lower
side with associated dizziness. Full 12 point ROS reviewed and negative except as documented Exam: Vitals reviewed in chart GEN-NAD heart RRR loud 3/6 blowing murmur rad to axilla lungs crackles at bases abd soft LE no edema
PLAN:
# HOCM/Severe mitral regurgitation
- SHERLY with worsening LV function EF down to 35-40%
- Lower BP's at baseline. No signs of overt heart failure
- Hold mavacamten per cards
- Continue metoprolol 25 mg if BP tolerates
- cards input appreciated
- transfer to [facility] when bed able
# NICM- possible takotsubo
- f/u [facility] for further care
- cont BB if tolerates and asa
- cont aspirin, hold heparin gtt
- continue statin
- NIMI-trops trending up
- echo 07/10- Moderately reduced Left ventricular ejection fraction 35-40%.
Distal septum and apex are akinetic. The distal inferior, distal anterior
and distal lateral are hypokinetic. HOCM.
Systolic anterior motion of the anterior mitral valve leaflet.
Severe mitral regurgitation.
Mild aortic regurgitation.
Moderate tricuspid regurgitation. Estimated pulmonary artery pressure of 40-45 mmHg.
- cath 07/10-Modest progression of coronary disease in mid RCA and at the origin of the first diagonal branch. 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
- cont diet for now
# Hypotension
- from severe MR/HOCM
- add midodrine per cards
# Leukocytosis
- cont to trend
- check UA
- repeat CBC in am
# TYSHAWN
- prerenal from hypotension
- possible component of JEANNE due to cath
- if worsening would give gentle IVF
- repeat BMP in am
# Acute Hypoxemic Respiratory Failure
- secondary to cardiac causes
- continue supplemental 02
# GERD- cont Protonix
# HLD- cont atorvastatin
DVT PPX - on heparin gtt
Code status - Full Code
Dispo transfer to [facility] when able
Time spent coordinating care, review of plan of care with resident, personally reviewed records in EMR, med rec, consults, notes, labs, radiology, d/w nursing cards CM re transfer � 65 mins
Original Note:
Today's Communication/Plan
-
hold BB and mavacamten
Add midodrine 5mg TID per cards
Transfer to [facility] when bed available
Assessment / Plan
Assessment / Plan
Pleasant 84-year-old female past medical history of hypertrophic cardiomyopathy, CAD status post stents, nonischemic myocardial injury last year, recent TIA presenting a few days with typical chest pain improved with aspirin. Troponins uptrending,
Echo and Cath done.
#NSTEMI
On telemetry in IVU
Aspirin, d/c heparin ggt per cards as CAD stable on cath
Continue statin
Troponins uptrending
Routine EKG
Echo 35-40%
Left ventricle is small in size. Moderately reduced left ventricular systolic
function. Left ventricular ejection fraction is 35-40% by visual assessment.
The distal septum and apex are akinetic. The distal inferiror, distal anterior
and distal lateral are hypokinetic. HOCM. LVOT gradients difficult to assess
due to severe MR.
Systolic anterior motion of the anterior mitral valve leaflet. Severe mitral
regurgitation.
Mild aortic regurgitation.
Moderate tricuspid regurgitation. Estimated pulmonary artery pressure of 40-45
mmHg.
Compared to the previous echo from Sep 2022, which was reviewed, EF was 65-
70%, moderate asymmetrical septal hypertrophy with LVOT gradients were present
and mild to moderate MR were seen in that study.
Cardiac cath 07/10/2024 revealed modest progression of coronary disease in mid RCA and at the origin of the first diagonal branch. 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
Plans to transfer to [facility] for continued care
#Severe mitral regurgitation
SHERLY with worsening LV function
Transfer to [facility] for further care per cards
#Cardiomyopathy; possible takotsubo
-Transfer to [facility] for further care
-Hold BB per cards, cont asa
#Hypertrophic cardiomyopathy
BP around 95/60 at baseline. No overt signs of heart failure
hold mavacamten and metoprolol cardiology recommendation
Transfer to [facility] when able
#Hypotension
Baseline BP around 95/68
Dropped on many occasions
Previously received fluid bolus
Cardiology adding midodrine 5mg TID
#Elevated WBC 13.2
U/A pending
No symptoms of UTI, lungs clear, afebrile
Likely reactive
#TYSHAWN
Cr 1.2. Likely pre-renal
Hx CKD now CKD IIIb
#Acute hypoxemic respiratory failure
Likely secondary to cardiac etiology
Monitor
#Hypokalemia
Monitor BMP
#GERD
continue pantoprazole
#HLD
Continue statin
DVT prophylaxis subQ heparin with new TYSHAWN
Diet Cholesterol ordering
Status full code
Anticipated Discharge: Within 24 hours
Subjective/Interval History
-
Date of Service: July 11, 2024
Objective Data
-
Labs:
Laboratory Results
07/11/24
03:47
WBC 13.8 H
Hgb 13.3
Hct 37.2
Plt Count 148
Sodium 132 L
Potassium 4.9
Chloride 101
Carbon Dioxide 19 L
BUN 41 H
Creatinine 1.2 H
Glucose 98
Calcium 8.8
Vital Signs:
Vital Signs
Temp Pulse Resp BP Pulse Ox
97.2 F 75 16 84/58 97
07/11/24 07:24 07/11/24 09:00 07/11/24 07:24 07/11/24 08:26 07/11/24 09:06
I&O
07/10/24 07/11/24 07/12/24
06:59 06:59 06:59
Intake Total 990 / 990
Output Total 325 / 325
Balance 665 / 665
Review of Systems
-
History Source: Patient
Respiratory: Reports No Symptoms
Cardiac: Reports Chest Pain
Abdomen/GI: Denies Nausea, Vomiting, Diarrhea or Pain
Genitourinary: Reports No Symptoms
Neuro: Reports No Symptoms
Physical Exam
-
General: No Apparent Distress and Comfortable
HEENT: Normocephalic
Respiratory: Clear to Auscultation
Cardiac: Regular Rhythm, S1/S2 and Murmur (Loudest at [place])
GI: Soft and Nontender
Musculoskeletal: No Edema
Neuro: AO x 3
Psych: Calm
[2024-07-11] MEDS: ProAmatine 5 MG PO ×3 (11:05→17:37)
[2024-07-11] MEDS: PROTONIX 40 MG PO (11:06)
[2024-07-11] MEDS: LIPITOR 40 MG PO (11:06)
[2024-07-11] MEDS: LOW STRENGTH ASPIRIN 81 MG PO (11:06)
--- NOTE | 2024-07-11 11:15 | PN.CDI ---
CDI
- -
CDI:
Physician Documentation Request
Admit Date: 07/09/24 21:00
Dear Doctor Kezia,
Please review the following and provide your response in the progress notes.
Clinical Indicators:
Pt admitted with NSTEMI
H&P listed CKD in patients history
Clarify which of the following accurately represents the patient's renal status:
CKD, please provide stage - see criteria
Other
Unable to determine
Stages of Chronic Kidney Disease*
Level Description GFR
G1 Normal or High >90
G2 Mildly decreased 60-89
G3a Mildly to moderately decreased 45-59
G3b Moderately to severely decreased 30-44
G4 Severely decreased 15-29
G5 Kidney failure <15
Use of terms such as suspected, likely, concern for, or probable (associated with a specific diagnosis that is being evaluated, monitored, or treated as if it exists) are acceptable and can be coded in the inpatient setting, when documented at the
time of discharge.
Thank you,
Krystina Lainez RN, BSN
CDI Specialist
Available via [facility] [employer]
Please use your independent medical judgment in providing your response.
*Source: Kidney Disease: Improving Global Outcomes (KDIGO) 2012
[2024-07-11 13:30] LABS: NT-proBNP > 27000 pg/ml
[2024-07-11] MEDS: MAALOX 30 ML PO ×2 (18:23→21:21)
[2024-07-11] MEDS: HEPARIN 5000 UNITS SC (19:33)
[2024-07-11] MEDS: ZOFRAN 4 MG IV (20:36)
--- NOTE | 2024-07-11 21:35 | PTCARENOTE ---
Pt. received at change of shift. Pt. seen and assessed in room. Pt AOx3 at the moment, forgetful at times. Bed alarm activated. Tele reading NSR. BP still hypotensive in the 80s-90s/50s-60s. Pt. has no complaints of chest pain, just nausea at the
moment. PRN zofran administered. RN verbalizes plan of care, pt. verbalizes understanding. Call brown within reach. continuing to monitor at this time.
[2024-07-12] VITALS (27 sets, daily range): BP systolic 73–123; BP diastolic 57–107; PULSE 92–110; O2SAT 98; BMI 22.7
[2024-07-12] MEDS: MIRALAX 17 GRAMS PO (03:25)
[2024-07-12 04:32] LABS: Blood Urea Nitrogen 30 mg/dl (7-17); Calcium 8.4 mg/dl (8.4-10.2); Carbon Dioxide 21 mmol/L (22-30); Chloride 98 mmol/L (98-107); Estimated Creatinine Clearance 27 ml/min; Glucose 97 mg/dl (70-99); Potassium 4.6 mmol/L (3.5-5.1); Sodium 131 mmol/L (135-145); eGFR 49.55
[2024-07-12] MEDS: HEPARIN 5000 UNITS SC ×2 (07:14→19:44)
[2024-07-12] MEDS: ProAmatine 5 MG PO ×3 (07:14→17:55)
[2024-07-12] MEDS: COLACE 100 MG PO ×2 (07:14→19:44)
[2024-07-12 08:12] LABS: Hematocrit 32.5 % (37.0-47.0); Hemoglobin 11.6 g/dL (12.0-16.0); Mean Corp Hgb Conc. 35.7 g/dL (33.0-37.0); Mean Corpuscular Hgb 32.5 pg (27.0-31.0); Mean Platelet Volume 10.9 fL (7.4-10.4); Platelet Count 121 10^3/uL (130-400); Red Blood Cell Count 3.57 10^6/uL (4.20-5.40); Red Cell Dist. Width 13.2 % (11.5-14.5); White Blood Cell Count 9.3 10^3/uL (4.8-10.8)
--- NOTE | 2024-07-12 08:18 | PTCARENOTE ---
Patient complaint of nausea, and 'I can't eat. 'I feel like there is a dog bone in my throat'. Anxious, constipated, last BM 5 days ago. Assisted to the commode, voided. Miralax given daily. Assisted back to bed, call brown in reach
[2024-07-12] MEDS: MAALOX 30 ML PO ×3 (08:25→19:44)
--- NOTE | 2024-07-12 08:26 | PTCARENOTE ---
Maalox given, belching, sitting up in chair.
[2024-07-12 08:55] LABS: Urine Albumin Negative (Neg - Trace); Urine Bilirubin Negative (Negative); Urine Character Clear (Clear); Urine Color Yellow; Urine Glucose Negative (Negative); Urine Ketone Negative (Negative); Urine Leukocyte Trace (Negative); Urine Nitrite Negative (Negative); Urine Occult Blood Negative (Negative); Urine Urobilinogen Negative (Neg - 1+)
[2024-07-12 09:21] LABS: Urine Red Blood Cell 0-2 /HPF (0-2); Urine Urothelial Cell 0-2 /LPF (FEW)
--- NOTE | 2024-07-12 09:54 | W.PN.HOSP.TC ---
Addendum entered and electronically signed by Johnson Lambert MD 07/12/24 22:00:
Attending Addendum-
I saw and evaluated the patient. I reviewed the resident�s note and agree with findings and plan as documented in the resident�s note. Sub: continues to have dizziness weakness and sob. Full 12 point ROS reviewed and negative except as documented
Exam: Vitals reviewed in chart GEN-NAD heart RRR loud 3/6 blowing murmur rad to axilla lungs crackles at bases abd soft LE no edema
PLAN:
# HOCM/Severe mitral regurgitation
- SHERLY with worsening LV function EF down to 35-40%
- No signs of overt heart failure
- Hold mavacamten per cards
- Continue metoprolol 25 mg if BP tolerates
- cards input appreciated
- GDMT limnited due to lower BP's
- transfer to [facility] today
# Hyponatremia
- hypovolemic
- repeat BMP in am
# NICM- possible takotsubo
- f/u [facility] for further care
- cont BB if tolerates and asa
- cont aspirin, hold heparin gtt
- continue statin
- NIMI-trops peaked at 1.2
- echo 07/10- Moderately reduced Left ventricular ejection fraction 35-40%.
Distal septum and apex are akinetic. The distal inferior, distal anterior
and distal lateral are hypokinetic. HOCM.
Systolic anterior motion of the anterior mitral valve leaflet.
Severe mitral regurgitation.
Mild aortic regurgitation.
Moderate tricuspid regurgitation. Estimated pulmonary artery pressure of 40-45 mmHg.
- cath 07/10-Modest progression of coronary disease in mid RCA and at the origin of the first diagonal branch. 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
- transfer to [facility]
# Hypotension
- from severe MR/HOCM
- add midodrine per cards
# Leukocytosis
- resolved
# TYSHAWN on CKD 3a
- prerenal from hypotension
- possible component of JEANNE due to cath
- if worsening would give gentle IVF
- repeat BMP in am
# Acute Hypoxemic Respiratory Failure
- secondary to cardiac causes
- continue supplemental 02
# GERD- cont Protonix
# HLD- cont atorvastatin
DVT PPX - on heparin gtt
Code status - Full Code
Dispo transfer to [facility] today. bed available
Time spent coordinating care, DC planning, review of DC plan of care with resident, transition of care to [facility], review of records, med rec/scripts sent electronically, consults, notes, d/w consultants, nursing, cards and CM� 38 mins
Original Note:
Today's Communication/Plan
-
Continue midodrine
Awaiting bed at [facility]
Assessment / Plan
Assessment / Plan
Pleasant 84-year-old female past medical history of hypertrophic cardiomyopathy, CAD status post stents, nonischemic myocardial injury last year, recent TIA presenting a few days with typical chest pain improved with aspirin. Troponins uptrending,
Echo and Cath done.
#HOCM/Severe mitral regurgitation
SHERLY with worsening LV function
Severe mitral regurg on echo
Transfer to [facility] for further care per cards
hold mavacamten and metoprolol cardiology recommendation
Transfer to [facility] when able
#NSTEMI
On telemetry in IVU
Aspirin, d/c heparin ggt per cards as CAD stable on cath
Continue statin
Troponins uptrending
Routine EKG
Echo 35-40%
Left ventricle is small in size. Moderately reduced left ventricular systolic
function. Left ventricular ejection fraction is 35-40% by visual assessment.
The distal septum and apex are akinetic. The distal inferiror, distal anterior
and distal lateral are hypokinetic. HOCM. LVOT gradients difficult to assess
due to severe MR.
Systolic anterior motion of the anterior mitral valve leaflet. Severe mitral
regurgitation.
Mild aortic regurgitation.
Moderate tricuspid regurgitation. Estimated pulmonary artery pressure of 40-45
mmHg.
Compared to the previous echo from Sep 2022, which was reviewed, EF was 65-
70%, moderate asymmetrical septal hypertrophy with LVOT gradients were present
and mild to moderate MR were seen in that study.
Cardiac cath 07/10/2024 revealed modest progression of coronary disease in mid RCA and at the origin of the first diagonal branch. 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
Plans to transfer to [facility] for continued care
#Cardiomyopathy; possible takotsubo
-Transfer to [facility] for further care
-Hold BB per cards, cont asa
#Hypotension
Baseline BP around 95/68
Dropped on many occasions
Previously received fluid bolus
Cardiology adding midodrine 5mg TID
#Elevated WBC 13.2
13.2->9.3
U/A no signs of UTI
lungs clear, afebrile
Likely reactive to cardiac function
#TYSHAWN
Cr 1.2.->1.1 Likely pre-renal from hypotension
Monitor BMP
Hx CKD now CKD IIIb
#Acute hypoxemic respiratory failure
Likely secondary to cardiac etiology
Continue supplemental O2 for comfort
Monitor
#Constipation
No bowel movement for past 5 days
Consider enema if today miralax no help
#GERD
continue pantoprazole
#HLD
Continue statin
DVT prophylaxis subQ heparin with new TYSHAWN
Diet Cholesterol ordering
Status full code
Anticipated Discharge: Within 24 hours
Subjective/Interval History
-
Date of Service: July 12, 2024
Objective Data
-
Labs:
Laboratory Results
07/12/24 07/12/24
03:44 08:03
WBC 9.3
Hgb 11.6 L
Hct 32.5 L
Plt Count 121 L
Sodium 131 L
Potassium 4.6
Chloride 98
Carbon Dioxide 21 L
BUN 30 H
Creatinine 1.1 H
Glucose 97
Calcium 8.4
Total Bilirubin Pending
AST Pending
ALT Pending
Alkaline Phosphatase Pending
Vital Signs:
Vital Signs
Temp Pulse Resp BP Pulse Ox
97.6 F 108 18 107/75 96
07/12/24 07:43 07/12/24 08:45 07/12/24 07:43 07/12/24 08:23 07/12/24 07:43
I&O
07/11/24 07/12/24 07/13/24
06:59 06:59 06:59
Intake Total 990 / 990 580 / 580
Output Total 325 / 325 400 / 400 300 / 300
Balance 665 / 665 180 / 180 -300 / -300
Review of Systems
-
History Source: Patient
Cardiac: Reports Chest Pain
Abdomen/GI: Reports Nausea, Constipated and Indigestion
Genitourinary: Reports No Symptoms
Skin: Reports No Symptoms
Neuro: Reports No Symptoms
Physical Exam
-
Respiratory: Clear to Auscultation
Cardiac: Regular Rhythm, S1/S2 and Murmur
GI: Soft and Nontender
Musculoskeletal: No Edema
Skin: Warm
Neuro: AO x 3
Psych: Calm
[2024-07-12 10:09] LABS: ALT (SGPT) 17 U/L (0-35); AST (SGOT) 34 U/L (14-36); Albumin 3.6 g/dl (3.5-5.0); Alkaline Phosphatase 54 U/L (38-126); Total Bilirubin 1.1 mg/dl (0.2-1.3); Total Protein 5.7 g/dl (6.3-8.2)
--- NOTE | 2024-07-12 10:13 | CM ---
CM following for DC planning needs.
Plan to transfer to [facility] once bed is avail.
CM will cont. to follow for DC planning needs as needed.
--- NOTE | 2024-07-12 10:50 | W.PN.CARDCBS ---
Addendum entered and electronically signed by Roger Nino MD 07/12/24 17:31:
I saw and examined the patient.
The General Office Clerk's note was reviewed and I agree with the note.
Comment: Briefly, 84-year-old woman past medical history of hypertrophic cardiomyopathy who presents with chest discomfort
Troponin was mildly elevated and peaked at 1.2 and TTE showed newly reduced left ventricular systolic function with an EF of 35 to 40%
Underwent cardiac catheterization earlier this week with moderate coronary disease but no culprit vessel was identified
Medical management of her coronary disease with aspirin and high intensity statin
Given newly reduced left ventricular systolic function Camzyos was discontinued
Due to hypotension GDMT for her cardiomyopathy is limited
Midodrine was added for hypotension
Given cardiomyopathy and severe mitral regurgitation plan is for transfer to the [facility] for further management
Original Note:
Today's Communication / Plan
-
Increase Protonix to twice daily for now
Ordered Senokot
Follow chest discomfort, if persists may consider for IV heparin
Continue midodrine
For transfer to [facility] when bed available
Impression / Plan
-
Primary Label Machine Operator: Dr. RIDGE Preston/Dr. Maritza Rizzo at [facility]
Assessment:
Chest pain
Severe MR
NICM, EF 35-40%
Elevated troponin, type 2 IN secondary to above
Hypotension
HOCM
Coronary artery disease
10/01/20 atherectomy to the LAD and diagonal bifurcation and T stenting with a 2.5/8 mm in the diagonal and 2.5/28 mm Susana Xience V drug-eluting stent in the LAD.
10/12/22 Cor angio for CP patent LAD stents and no new significant cor dz
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
h/o Traumatic brain injury
she fell out of her bed and hit her head, developed hallucinations approximately 3 weeks later, found to have right subdural collection with subacute to chronic SDH at [facility] 10/2021
Hyperlipidemia with statin intolerance
Left breast cancer status postlumpectomy, chemotherapy and radiation 2001
Sleep apnea
Fibromyalgia
Osteoarthritis
Dyslipidemia (h/o poorly karla statin but recently tolerating atorvastatin)
Anxiety and depression
Recent Testing:
Cardiac catheterizations:�
10/12/22. RHC/LHC. ��DOMINANCE: Right, LEFT MAIN: Normal, �LEFT ANTERIOR DESCENDING: The LAD arises normally from the left main and runs in the anterior interventricular groove. The stents in the mid LAD and diagonal branch remain widely patent.
The diagonal stent has 30% in-stent restenosis at its origin. The remainder of the LAD becomes a small caliber vessel. CIRCUMFLEX: The circumflex is a medium caliber nondominant vessel giving rise to a sizable bifurcating OM1. The circumflex
continues in the AV groove supplying several small posterolateral branches. �RIGHT CORONARY ARTERY: The right coronary artery is a dominant vessel that has a 50% stenosis in its midportion. The iFR measured above the ischemic threshold at 0.97 and
PCI is deferred
10/01/20. Dominance: right. Left Main: nl. LAD: proximal and mid LAD calcified. Complex trifurcation lesion involving the small first diagonal, huge second diagonal and LAD with a hazy 75% LAD stenosis just before diagonal and diffuse disease
thereafter. Ostial second diagonal has 70% stenosis. Circumflex: Luminal irregularities. RCA: 65% stenosis of the mid RCA. Left Ventriculography: LV small and ballet shoe appearance and LVH. EF is 68%. Patient underwent successful complex CSI
diamondback atherectomy to the LAD and diagonal bifurcation and T stenting with a 2.5/8 mm in the diagonal and 2.5/28 mm Susana Xience V drug-eluting stent in the LAD.
Cardiac Magnetic Resonance Imaging (MRI):�
01/05/23. Performed at [facility]. EF 59%. LVEDV 96 mL, Max wall thickness 18 mm, LV mass index 53.33 g/m2, LGE less than 5%. Normal LV cavity size and systolic function. There is asymmetric septal hypertrophy up to 18 mm at the mid-septum. There is mild
SHERLY with flow acceleration seen at the LVOT. 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 RVEF 58%
Echo 07/13/2023: nl LV size, asymmetric septal hypertrophy, no LV cavity or outflow tract obstruction, LVOT peak gradient at rest 5 mmHg, LVOT peak gradient with Valsalva 7 mmHg, incompletely visualized endocardium but no regional wall motion
abnormalities are noted in the visualized segment, LVEF 59% (Biplane), GLS 18.1%, grade I DD, reduced tissue Doppler velocity, nl RV size and function, TAPSE 1.8 cm, mildly dilated LA, LA volume 38 mL/m2, nl RA, mild MV leaflet thickening, mild
systolic anterior motion of the chordal apparatus is present, mild-mod MR, mild Tr, PASP 23 mmHg, mild AV calcification, mild AR, the jet is centrally directed, trace [place], pericardial fat pad present, nl aortic root size, proximal ascending aorta is
enlarged at 3.5 cm, upper abdominal aorta nl in size.
Echo 11/24/2023 ([facility]us): nl LV size, asymmetric basal septal hypertrophy, no significant LVOT obstruction, LVOT peak at rest 16mmHg, LVOT peak w/ Valsalava 21mmHg, no wall motion abnormalities, EF 67%, nl RV size and borderline fxn, mild-mod MR, mild
SHERLY of ant leaflet; mild TR, prox segment asc aorta 3.3 cm, no significant change compared to 09/01/23
ECHO 07/10/24: EF 35 to 40%, distal septum and apex akinetic, distal inferior, distal anterior and distal lateral are hypokinetic, hokum with LVOT gradients difficult to assess due to severe MR, SHERLY of anterior mitral valve leaflet, severe MR, mild
AR, moderate TR, PAP 40 to 45 mmHg
Recommendations:
-Patient presented with chest pain. trop peaked at 1.2. she reports some continued tightness/burning, worse after eating/drinking, improved with sitting in chair. she has GERD on protonix as OP. reports symptoms temporarily improved with maalox.
will increase protonix to BID and follow. if remains with pain, would consider addition of IV heparin
-Underwent cardiac catheterization 07/10 which showed modest progression and CAD of mid RCA and first diagonal branch, with myocardial bridge in distal LAD. no intervention performed
-echo 07/10 with new reduction in EF, 35-40% and SHERLY, severe MR.
-BP trends overall somewhat improved compared to yesterday with addition of midodrine. patient reports some mild dizziness in chair. continue toprol as able with hold parameters. would attempt to avoid hypotension in setting of HOCM.
-awaiting transfer to [facility] for evaluation
-after discussion with steam plant operator at [facility], camzyos stopped for now
-complains of constipation. will add senokot.
-d/w nursing
Progress Note - Label Machine Operator
Subjective
Date of Service: July 12, 2024
Reports no bowel movement in 5 days. Reports some chest tightness/burning which improves with Maalox and sitting up, worse with eating or drinking.
Objective
Labs:
07/12/24 08:03
07/12/24 03:44
Labs
Hgb 11.6 g/dL (12.0-16.0) L 07/12/24 08:03
Hct 32.5 % (37.0-47.0) L 07/12/24 08:03
Plt Count 121 10^3/uL (130-400) L 07/12/24 08:03
APTT 74.6 Sec (23.4-35.0) H 07/10/24 08:21
Sodium 131 mmol/L (135-145) L 07/12/24 03:44
Potassium 4.6 mmol/L (3.5-5.1) 07/12/24 03:44
BUN 30 mg/dl (7-17) H 07/12/24 03:44
Creatinine 1.1 mg/dL (0.6-1.0) H 07/12/24 03:44
Glucose 97 mg/dl (70-99) 07/12/24 03:44
Troponins
07/09/24 07/09/24 07/09/24
15:21 19:34 22:44
Troponin I 0.027 0.103 H* D 0.224 H* D
07/10/24 07/10/24 07/10/24
03:17 08:21 09:00
Troponin I 0.548 H* D 0.694 H* D Cancelled
07/10/24 07/10/24 07/10/24
15:15 15:16 19:14
Troponin I Cancelled 0.735 H* 0.651 H*
07/11/24 07/11/24 07/11/24
03:47 11:42 12:57
Troponin I 1.200 H* Cancelled 1.140 H*
07/11/24 07/11/24
16:03 21:30
Troponin I 1.080 H* Cancelled
Vital Signs and I&O:
Vital Signs
Temp Pulse Resp BP Pulse Ox
97.6 F 108 18 107/75 96
07/12/24 07:43 07/12/24 08:45 07/12/24 07:43 07/12/24 08:23 07/12/24 08:00
Vital Signs
Temp Pulse Resp BP Pulse Ox
97.6 F 108 18 107/75 96
07/12/24 07:43 07/12/24 08:45 07/12/24 07:43 07/12/24 08:23 07/12/24 08:00
Intake & Output
07/10/24 07/11/24 07/12/24 07/13/24
07:59 07:59 07:59 07:59
Intake Total 990 / 990 580 / 580
Output Total 325 / 325 400 / 400 300 / 300
Balance 665 / 665 180 / 180 -300 / -300
Physical Exam
Physical Exam
GEN: No distress, awake, alert, oriented x3. sitting in chair. on supp O2
HEENT: supple, anicteric, mmm, eomi
LUNGS: CTA B/L, no wheezes/rales
CV: Reg, S1/S2, 2/6 holosystolic LSB murmur
ABD: soft, BS+, NT/ND
EXT: No cyanosis, clubbing, edema
NEURO: Gross non-focal
SKIN: Warm, pink, dry. No rash
[2024-07-12] MEDS: PROTONIX 40 MG PO ×2 (11:42→19:44)
[2024-07-12] MEDS: LIPITOR 40 MG PO (11:42)
[2024-07-12] MEDS: SENOKOT-S 1 TABLET PO (11:42)
[2024-07-12] MEDS: LOW STRENGTH ASPIRIN 81 MG PO (11:42)
[2024-07-12] MEDS: GLYCERIN SUPPOSITORY ADULT 1 SUPP RECTAL (11:46)
--- NOTE | 2024-07-12 16:12 | PTCARENOTE ---
milk of molasses enema given
--- NOTE | 2024-07-12 16:42 | PTCARENOTE ---
Report called to [place] at [facility] @ [phone]. Patient had a large BM following enema
--- NOTE | 2024-07-12 17:26 | W.DCSUMMARY ---
Addendum entered and electronically signed by Johnson Lambert MD 07/12/24 22:01:
Read, reviewed, and agree. See same day progress note for additional details. Transfer to [facility]
Ruben Lambert MD
Original Note:
Documented by User: Teresa Mast MD, Resident 07/12/24 17:27
Discharge Summary
Discharge Data
Date of Admission: 07/09/24
Date of Discharge: 07/12/24
-
Pending Results: No
Hospital Course
Primary diagnosis:
HOCM with SHERLY with severe mitral regurgitation and new / worsening LV dysfunction
Secondary diagnosis:
Hyperlipidemia
Coronary artery disease status post CABG
GERD
84-year-old female with past medical history of HOCM, CAD s/p stent presented to the [facility] with chest pain for the previous 4 days waxing and waning in intensity. In ED blood pressure around baseline 93/68, pulse 74, saturation 100%.
Initial troponin 0.027, repeat 0.1. ECG showed normal rhythm with left bundle branch block compared to baseline. Had T wave inversion in the lateral leads. CT angiogram ruled out dissection and PE. Patient was diagnosed with NSTEMI and admitted
for observation overnight and cardiology consulted. Chest pain partially relieved with aspirin and maalox. Troponins continue to trend upward from 0.224- 0.548-0.694 this morning. This morning BP dropped to 72.62. Fluid boluses ordered.
Cardiology ordered urgent echo. Echo revealed left ventricular ejection fraction of 35 to 40% with distal septum and apex akinetic. Distal inferior, distal anterior and distal lateral wall are hypokinetic. (see below) Cardiac cath is planned for
afternoon. Cath revealed HOCM with SHERLY with severe mitral regurgitation and new / worsening LV dysfunction (see below). Mavacamten for heart contractility and metoprolol on hold per cardiology recommendations. Cardiology recommended transfer to
[facility] with receiving physician Maribeth Baeza for further evaluation as echo and cath findings significantly different from baseline. Midodrine 5mg TID added per cards for BP improvement.
07/10/24 Echo
Left ventricle is small in size. Moderately reduced left ventricular systolic
function. Left ventricular ejection fraction is 35-40% by visual assessment.
The distal septum and apex are akinetic. The distal inferiror, distal anterior
and distal lateral are hypokinetic. HOCM. LVOT gradients difficult to assess
due to severe MR.
Systolic anterior motion of the anterior mitral valve leaflet. Severe mitral
regurgitation.
Mild aortic regurgitation.
Moderate tricuspid regurgitation. Estimated pulmonary artery pressure of 40-45
mmHg.
Compared to the previous echo from Sep 2022, which was reviewed, EF was 65-
70%, moderate asymmetrical septal hypertrophy with LVOT gradients were present
and mild to moderate MR were seen in that study.
07/10/24 Cardiac Cath
CONCLUSIONS
1. Severe mitral regurgitation
2. Cardiomyopathy; possible takotsubo
3. Modest progression of coronary disease in mid RCA and at the origin of the first diagonal branch. 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
RECOMMENDATIONS
1. I discussed angiographic findings with Dr. Jason Rizzo at the [facility].
2. Will discontinue Camzios.
3. Will transfer to the [facility] Heart Failure service given SHERLY with severe mitral regurgitation and new / worsening LV dysfunction
Discharge Plan
-
Patient Disposition: Acute Care Hospital
Condition: Serious
Discharge Orders:
Discharge Patient (As Directed); Ordered 07/12/24
Ordered By: Teresa Mast
Discharge Date and Time
Print Language: VIETNAMESE

Documented by User: Johnson Lambert MD 07/12/24 21:54
Discharge Summary
Discharge Data
Date of Admission: 07/09/24
Date of Discharge: 07/12/24
Discharge Plan
-
Patient Disposition: Acute Care Hospital
Condition: Serious
Discharge Orders:
Discharge Patient (As Directed); Ordered 07/12/24
Ordered By: Teresa Mast
Discharge Date and Time
Print Language: VIET[place]ESE
--- NOTE | 2024-07-12 21:38 | PTCARENOTE ---
Rec'd pt at change of shift with order for discharge. Pt being transferred to [facility]. Pt on TELE monitor in NSR with a BBB and VSS. Pt denied any pain but reported indigestion and was given Maalox as ordered for indigestion. Pt reported immediate
relief. Pepe from Acute Care medical transport rec'd report for patient and updated on plan of care. TELE monitor removed. Transport care aware of existing IV sites and R femoral dressing / procedure site. Pt left unit with belongings, medical
records, transport authorization sheet, and hearing aid. Pt escorted off unit by Acute care medical transport staff via stretcher. Pt aware and agreeable to plan of care. Vital signs obtained prior to transport. See flowchart.
== END 2024-07-12 21:30 | disposition short-term general hospital (02) | DRG 280 ==
LOC: IVU 21:00
PROVIDERS: Internal Medicine Interventional Cardiology; Nurse Practitioner; Physician Assistant; Student in an Organized Health Care Education/Training Program; ADMITTING PHYSICIAN Internal Medicine; ATTENDING PHYSICIAN Family Medicine; CONSULT PHYSICIAN Internal Medicine Cardiovascular Disease; EMERGENCY PHYSICIAN Emergency Medicine; FAMILY PHYSICIAN Family Medicine
PROC: B2111ZZ Fluoroscopy of Multiple Coronary Arteries using Low Osmolar Contrast (ICD-10-PCS; 2024-07-10)
PROC: B2151ZZ Fluoroscopy of Left Heart using Low Osmolar Contrast (ICD-10-PCS; 2024-07-10)
PROC: 4A023N7 Measurement of Cardiac Sampling and Pressure, Left Heart, Percutaneous Approach (ICD-10-PCS; 2024-07-10)
DX: I21.4 Non-ST elevation (NSTEMI) myocardial infarction (principal); J96.01 Acute respiratory failure with hypoxia; I42.1 Obstructive hypertrophic cardiomyopathy; Q24.5 Malformation of coronary vessels; N17.9 Acute kidney failure, unspecified; I12.9 Hypertensive chronic kidney disease with stage 1 through stage 4 chronic kidney disease, or unspecified chronic kidney disease; N18.32 Chronic kidney disease, stage 3b; I08.1 Rheumatic disorders of both mitral and tricuspid valves; F32.A Depression, unspecified; Z95.1 Presence of aortocoronary bypass graft; I44.7 Left bundle-branch block, unspecified; I95.9 Hypotension, unspecified; I25.10 Atherosclerotic heart disease of native coronary artery without angina pectoris; Z95.5 Presence of coronary angioplasty implant and graft; E78.00 Pure hypercholesterolemia, unspecified; G47.33 Obstructive sleep apnea (adult) (pediatric); M79.7 Fibromyalgia; M19.90 Unspecified osteoarthritis, unspecified site; K21.9 Gastro-esophageal reflux disease without esophagitis; F41.9 Anxiety disorder, unspecified; R26.2 Difficulty in walking, not elsewhere classified; R35.1 Nocturia; M54.6 Pain in thoracic spine; E87.6 Hypokalemia; Z79.899 Other long term (current) drug therapy; Z87.19 Personal history of other diseases of the digestive system; Z87.820 Personal history of traumatic brain injury; Z85.3 Personal history of malignant neoplasm of breast; Z92.21 Personal history of antineoplastic chemotherapy; Z92.3 Personal history of irradiation; Z87.891 Personal history of nicotine dependence; Z88.0 Allergy status to penicillin; Z88.1 Allergy status to other antibiotic agents; Z88.2 Allergy status to sulfonamides; Z88.3 Allergy status to other anti-infective agents; Z88.6 Allergy status to analgesic agent; Z90.89 Acquired absence of other organs; Z91.041 Radiographic dye allergy status; Z96.652 Presence of left artificial knee joint
CPT/HCPCS: 71045; 71275; 80048; 80053; 81003; 81015; 83735; 83880; 84484; 85025; 85027; 85730; 93005; 93306; 93458; 96361; 96374; 96375; 97163; 99285; C1760; C1894; Q9967

== ENCOUNTER → 2024-07-30 11:13 | Outpatient (REF) | payer MEDICARE, OTHER, SELFPAY | LOC: MRI 3T 11:13 | PROVIDERS: ATTENDING PHYSICIAN Psychiatry & Neurology Neurology; FAMILY PHYSICIAN Family Medicine | DX: G45.9 Transient cerebral ischemic attack, unspecified (principal) | CPT/HCPCS: 70551 ==

== ENCOUNTER → 2024-08-30 08:37 | Outpatient (REF) | payer MEDICARE, OTHER, SELFPAY | LOC: WDC 08:37 | PROVIDERS: ATTENDING PHYSICIAN Family Medicine | DX: Z12.31 Encounter for screening mammogram for malignant neoplasm of breast (principal) | CPT/HCPCS: 77063; 77067 ==

== ENCOUNTER → 2024-11-11 09:55 | Outpatient (REF) | payer MEDICARE, OTHER, SELFPAY ==
[2024-11-11 10:56] LABS: % Basophils 0.9 % (0-2); % Eosinophils 2.5 % (0-6); % Immature Granulocytes 0.3 % (0-0.5); % Lymphocytes 28.9 % (20.5-51.1); % Monocytes 8.2 % (1.7-9.3); % Neutrophils 59.2 % (42.2-75.2); Absolute Basophils 0.1 10^3/uL (0-0.2); Absolute Eosinophils 0.2 10^3/uL (0-0.7); Absolute Lymphocytes 1.8 10^3/uL (1.2-3.4); Absolute Monocytes 0.5 10^3/uL (0.1-0.6); Absolute Neutrophils 3.8 10^3/uL (1.4-6.5); Hematocrit 40.8 % (37.0-47.0); Hemoglobin 13.4 g/dL (12.0-16.0); Mean Corp Hgb Conc. 32.8 g/dL (33.0-37.0); Mean Corpuscular Hgb 32.8 pg (27.0-31.0); Mean Corpuscular Volume 99.8 fL (81.0-99.0); Mean Platelet Volume 10.7 fL (7.4-10.4); Nucleated Red Blood Cells % 0 %; Platelet Count 143 10^3/uL (130-400); Red Blood Cell Count 4.09 10^6/uL (4.20-5.40); Red Cell Dist. Width 13.3 % (11.5-14.5); White Blood Cell Count 6.4 10^3/uL (4.8-10.8)
[2024-11-11 11:10] LABS: NT-proBNP 838 pg/ml
[2024-11-11 11:18] LABS: ALT (SGPT) 19 U/L (0-35); AST (SGOT) 27 U/L (14-36); Albumin 4.3 g/dl (3.5-5.0); Alkaline Phosphatase 66 U/L (38-126); Blood Urea Nitrogen 30 mg/dl (7-17); Calcium 9.3 mg/dl (8.4-10.2); Carbon Dioxide 27 mmol/L (22-30); Chloride 100 mmol/L (98-107); Glucose 50 mg/dl (70-99); Potassium 4.3 mmol/L (3.5-5.1); Sodium 137 mmol/L (135-145); Total Bilirubin 0.7 mg/dl (0.2-1.3); Total Protein 6.4 g/dl (6.3-8.2); eGFR 49.55
== END ==
LOC: REG 09:55
PROVIDERS: ATTENDING PHYSICIAN Nurse Practitioner Acute Care; FAMILY PHYSICIAN Family Medicine; REFERRING PHYSICIAN Internal Medicine Cardiovascular Disease
DX: I42.2 Other hypertrophic cardiomyopathy (principal); I50.30 Unspecified diastolic (congestive) heart failure
CPT/HCPCS: 36415; 80053; 83735; 83880; 85025

== ENCOUNTER → 2025-01-18 15:37 | Outpatient (REF) | payer MEDICARE, OTHER, SELFPAY | LOC: RCS 15:37 | PROVIDERS: ATTENDING PHYSICIAN Internal Medicine Cardiovascular Disease; FAMILY PHYSICIAN Family Medicine | DX: I25.10 Atherosclerotic heart disease of native coronary artery without angina pectoris (principal) | CPT/HCPCS: 93306 ==

== ENCOUNTER 2025-02-28 23:34 | Emergency (ER) | payer MEDICARE, OTHER, SELFPAY ==
[2025-02-28 23:43] VITALS: BP 142/72
[2025-03-01] MEDS: LIDOCAINE 4% PATCH 1 PATCH TOPICAL (04:03)
[2025-03-01] MEDS: TYLENOL 1000 MG PO (04:05)
--- NOTE | 2025-03-01 05:42 | ED.GENMED ---
History of Present Illness
General
Chief Complaint: Musculo-Skeletal Complaint
Source: patient
Exam Limitations: none
Time Seen by Provider: 03/01/25 03:25
Nursing documentation reviewed up to this point in time: agreed with
History of Present Illness
History of Present Illness:
This is a quite spry 84-year-old woman who resides at home with her . She states this evening while attempting to assist her to get up out of the chair, she lost her balance and fell backward landing on her left posterior flank
region. She denies head injury, denies loss of consciousness. She has been able to get up and move about but complains of left lateral thoracic pain that is worse tonight with difficulty falling asleep. She did note mild left posterior hip pain
which has since resolved. She denies headache, denies neck pain. She does note some intermittent low back pain. No radiation of pain. No weakness nor numbness.
She took Tylenol this evening with mild but temporary relief.
She takes no anticoagulants save for low-dose aspirin.
Past History
Past History
ED Past Medical History: CAD, Cancer (Left breast), GERD, HTN, Hypercholesterolemia and Other (CM, Diverticulitis)
ED Past Surgical History: Appendectomy, Cardiac (PTCA with stent 2020, 'Fat [facility]'), Gynecological (Left breast mastectomy), Orthopedic and Urological (Bladder left)
Social History
Tobacco: Former smoker
Alcohol: None
Drug: None
Personal:
Living: with family
Employment: Retired
Family History
Family History: Other (Noncontributory)
Phy Exam
Physical Exam
Physical Exam:
GENERAL: 84-year-old woman appears her stated age. Sleeping upon initial evaluation, awakens easily. Once awake she is bright and alert, oriented x 3, pleasant, appears in no acute distress.
EYE: pupils equal and reactive. anicteric. The head is normocephalic, atraumatic.
NECK: Supple, nontender, no meningismus, full range of motion without difficulty nor pain. No significant adenopathy.
ENT: oral mucosa is moist. TM clear b/l, nares patent.
CARDIAC: Regular rate and rhythm. no murmur. There is mild tenderness left anterolateral distal costal region. No palpable bony abnormality nor palpable crepitus.
LUNGS: Clear breath sounds bilaterally, no acute respiratory distress, no wheezes/rales/rhonchi
ABDOMEN: Soft, nondistended, without focal tenderness, no r/g, no cvat. normoactive BS.
BACK: Mild midline vertebral tenderness distal thoracic, upper lumbar region. Straight leg raising is negative bilaterally. No palpable bony pelvic tenderness.
NEUROLOGICAL: Alert and oriented x3, no focal neuro deficits. Gait is steady.
SKIN: Warm and dry, normal color, skin intact. No rash.
MUSCULOSKELETAL: No C/C/E. peripheral pulses are full and equal b/l. No palpable tenderness.
PSYCH: Normal and appropriate interaction.
Course
Orders/Labs/Results
Orders:
Orders
03/01/25 00:01
CR Ribs-left 3 Vw W/pa Chest Urgent
Reason For Exam: FALL
03/01/25 03:43
Lidocaine [Lidocaine 4% Patch] 1 patch TOPICAL NOW STA
Apply Lidocaine patch(s) to:: left lateral flank region
Lumbar Spine Complete, 4 View [CR Lumbar Spine Comp Min 4 Vw*] Urgent
Comment:
Reason For Exam: upper lumbar tenderness-fall tonight
Thoracic Spine 3 Views CR [CR Thoracic Spine 3 Views] Urgent
Comment:
Reason For Exam: lower midline thoracic spine tenderness. fall
03/01/25 03:46
Acetaminophen [Tylenol] 1,000 mg PO NOW STA
Vital Signs
Initial and Last Documented VS:
Initial Vital Signs
Temp Pulse Resp BP Pulse Ox
97.5 F 68 20 142/72 98
02/28/25 23:43 02/28/25 23:43 02/28/25 23:43 02/28/25 23:43 02/28/25 23:43
Last Documented Vital Signs
Temp Pulse Resp BP Pulse Ox
97.5 F 65 18 150/79 97
02/28/25 23:43 03/01/25 06:13 03/01/25 06:13 03/01/25 06:13 03/01/25 06:13
MDM/Problems Addressed
Differential Diagnosis Includes:
Concern for left lateral rib fracture. Concern for lower thoracic/upper lumbar compression fracture.
No focal neurodeficits. Patient is able to stand and ambulate without difficulty.
No respiratory distress and no significant pain with inspiration.
Patient takes no anticoagulants other than low-dose aspirin. No history of bleeding disorder.
Chest x-ray/left rib series initially interpreted by myself. Clear lung baez. Normal heart size. There is note of a nondisplaced fracture left lateral eighth rib.
Due to back pain we will check thoracic spine x-ray as well as lumbar spine x-ray.
Will give a dose of Tylenol now for pain and will trial lidocaine patch to left lateral flank region.
As patient denies head injury, denies neck pain, no anticoagulants nor bleeding disorder, no indication for CT of the head nor cervical spine imaging.
*Radiology
Radiology exam reviewed: preliminary read by ED provider
*Pulse Oximetry
SaO2: 98
Patient hypoxic: no
*Critical Care Note
Total Time (30-74mins, 75-104mins- exclusive of procedures): Not Applicable
Update Note
Update Note:
05:30
Patient has been sleeping when undisturbed.
Feeling markedly improved after dose of Tylenol and lidocaine patch to left lateral rib/flank region.
T-spine and lumbar spine x-rays show mild scoliosis, moderate DJD but no evidence of fracture.
Will discharge to home with recommendation she continue Tylenol for as needed pain related to left lateral eighth rib fracture. Continue lidocaine patch.
Encouraged to sleep in a recliner at least over the next week to assist with comfort during sleeping and assist with ease in getting up to a standing position.
Prompt follow-up with PCP for recheck.
ED Attending Note
-
Portions of this chart may have been created with voice recognition software.� Occasional wrong word or��sound alike� substitutions may have occurred due to the inherent limitations of voice recognition software.
Discharge Plan
Departure
Patient Disposition: Home (Routine Discharge)
Date of Disposition: 03/01/25
Time of Disposition: 05:44
Patient with high blood pressure during this ER visit?: No
Condition: Good
Discharge Problem:
left 8th rib fracture
Instructions: Rib Fracture
Prescriptions:
No Action
pantoprazole 40 MG tablet,delayed release (DR/EC)
40 mg PO NOON
atorvastatin 40 mg Tablet
40 mg PO NOON
cyanocobalamin (vitamin B-12) 500 mcg Tablet
500 mcg PO NOON
ascorbic acid (vitamin C) [Vitamin C] 250 mg Tablet
250 mg PO NOON
cholecalciferol (vitamin D3) [Vitamin D3] 25 mcg (1,000 unit) Tablet
25 mcg PO NOON
Camzyos 5 mg Capsule
5 mg PO NOON
Patient Comments:
07/09/24: Despite most recent pharmacy fill of 2.5mg, patient states she takes 5mg.
Hair, Skin and Nails (biotin) 10,000 mcg Tablet,Chewable
10,000 mcg PO NOON
aspirin 81 MG tablet,chewable
81 mg PO NOON
metoprolol succinate [Toprol XL] 25 mg tablet extended release 24 hr
25 mg PO NOON
Referrals:
Joann Dimas MD [Family Provider, Family Practice] - Call in 1-3 days for appt
Interventions
Interventions:
*Risk Screen - Suicide Last Done: 02/28/25 23:43
*General Assessment Last Done: 03/01/25 02:08
*Neglect/Abuse Screening Last Done: 02/28/25 23:43
*ED- Fall Risk Assessment Last Done: 03/01/25 02:08
*ED COVID-19 Vaccine History Last Done: 03/01/25 02:08
*Nursing Disposition Last Done: 03/01/25 06:13
ED-Musculoskeletal Assessment Last Done: 03/01/25 01:00
Discharge Date and Time
Discharge Date/Time: 03/01/25 06:14
Print Language: SETSWANA
[2025-03-01 06:13] VITALS: BP 150/79
== END 2025-03-01 06:14 | disposition home or self-care (01) ==
LOC: EMR 23:34
PROVIDERS: EMERGENCY PHYSICIAN Emergency Medicine; FAMILY PHYSICIAN Family Medicine
DX: S22.32XA Fracture of one rib, left side, initial encounter for closed fracture (principal); W19.XXXA Unspecified fall, initial encounter; E78.00 Pure hypercholesterolemia, unspecified; I10 Essential (primary) hypertension; I25.10 Atherosclerotic heart disease of native coronary artery without angina pectoris; Z87.891 Personal history of nicotine dependence; Z90.12 Acquired absence of left breast and nipple; Z90.49 Acquired absence of other specified parts of digestive tract; Z95.5 Presence of coronary angioplasty implant and graft
CPT/HCPCS: 99283; 71101; 72072; 72110

== ENCOUNTER → 2025-03-21 11:40 | Outpatient (REF) | payer MEDICARE, OTHER, SELFPAY ==
[2025-03-21 13:10] LABS: HDL Cholesterol 74 mg/dl; LDL Cholesterol, Calculated 46 mg/dl; Very Low Density Lipoprotein 14 mg/dl (0-30)
[2025-03-21 13:41] LABS: TSH 1.86 uIU/ml (0.47-4.68)
== END ==
LOC: REG 11:40
PROVIDERS: ATTENDING PHYSICIAN Family Medicine
DX: E78.2 Mixed hyperlipidemia (principal); E04.1 Nontoxic single thyroid nodule
CPT/HCPCS: 36415; 80061; 84443

== ENCOUNTER → 2025-03-30 09:00 | Outpatient (REF) | payer MEDICARE, OTHER, SELFPAY ==
[2025-03-30 10:43] LABS: Hematocrit 37.6 % (37.0-47.0); Hemoglobin 12.5 g/dL (12.0-16.0); Mean Corp Hgb Conc. 33.2 g/dL (33.0-37.0); Mean Corpuscular Volume 99.2 fL (81.0-99.0); Nucleated Red Blood Cells % 0 %; Platelet Count 141 10^3/uL (130-400); Red Cell Dist. Width 13.5 % (11.5-14.5)
[2025-03-30 11:08] LABS: Blood Urea Nitrogen 28 mg/dl (7-17); Calcium 9.0 mg/dl (8.4-10.2); Carbon Dioxide 25 mmol/L (22-30); Chloride 105 mmol/L (98-107); Glucose 84 mg/dl (70-99); Potassium 4.2 mmol/L (3.5-5.1); Sodium 136 mmol/L (135-145); eGFR 55.55
== END ==
LOC: REG 09:00
PROVIDERS: ATTENDING PHYSICIAN Nurse Practitioner Adult Health; FAMILY PHYSICIAN Family Medicine
DX: Z03.89 Encounter for observation for other suspected diseases and conditions ruled out (principal); I42.1 Obstructive hypertrophic cardiomyopathy; I42.2 Other hypertrophic cardiomyopathy
CPT/HCPCS: 36415; 80048; 85025

== ENCOUNTER 2025-08-08 14:07 | Inpatient (IN) | payer MEDICARE, OTHER, SELFPAY ==
[2025-08-07] VITALS (9 sets, daily range): BP systolic 86–153; BP diastolic 62–132
[2025-08-07 18:31] LABS: Hematocrit 39.4 % (37.0-47.0); Hemoglobin 13.5 g/dL (12.0-16.0); Mean Corp Hgb Conc. 34.3 g/dL (33.0-37.0); Mean Corpuscular Volume 94.0 fL (81.0-99.0); Nucleated Red Blood Cells % 0 %; Platelet Count 152 10^3/uL (130-400); Red Cell Dist. Width 13.2 % (11.5-14.5)
[2025-08-07 18:43] LABS: ALT (SGPT) 21 U/L (0-35); AST (SGOT) 31 U/L (14-36); Albumin 4.4 g/dl (3.5-5.0); Alkaline Phosphatase 52 U/L (38-126); Blood Urea Nitrogen 37 mg/dl (7-17); Calcium 9.0 mg/dl (8.4-10.2); Carbon Dioxide 24 mmol/L (22-30); Chloride 99 mmol/L (98-107); Glucose 118 mg/dl (70-99); Potassium 4.3 mmol/L (3.5-5.1); Sodium 129 mmol/L (135-145); Total Protein 6.7 g/dl (6.3-8.2); eGFR 55.21
[2025-08-07 18:57] LABS: Troponin I 0.430 ng/ml
--- NOTE | 2025-08-07 19:11 | ED.GENMED ---
History of Present Illness
<Sonia Royal NP - Last Filed: 08/07/25 22:50>
General
Chief Complaint: Chest Pain
Source: patient
Exam Limitations: none
Time Seen by Provider: 08/07/25 18:24
Nursing documentation reviewed up to this point in time: agreed with
History of Present Illness
History of Present Illness:
Patient to the emergency department for evaluation of extreme weakness. She states she has been feeling weak over the past few days but today weakness escalated. States she was having difficulty with ADLs due to her extreme weakness. She denies
any dizziness or lightheadedness. Reporting chest pressure currently. She denies shortness of breath. She reports 2 nights ago she woke with pain to her left shoulder left neck and left arm. She states symptoms lasted approximately 20 minutes
and then resolved on its own. She states pain returned a little while later however only lasted for 2 to 3 minutes. She denies any associated nausea vomiting or diaphoresis. She denies any nausea vomiting diaphoresis. Reports appetite has been
diminished but she feels this is related to her losing her spouse approximately 6 weeks ago. She has brought to the ED via EMS tonight due to her extreme exhaustion. Hypotensive on arrival to the ED, BP 88/66. She was given IV fluids BP now
109/72. She reports taking ASA 324mg LEG BREAKER.
Past History
<Sonia Royal NP - Last Filed: 08/07/25 22:50>
Past History
ED Past Medical History: CAD, Cancer (Left breast), GERD, HTN, Hypercholesterolemia and Other (CM, Diverticulitis)
ED Past Surgical History: Appendectomy, Cardiac (PTCA with stent 2020, '[facility]'), Gynecological (Left breast mastectomy), Orthopedic and Urological (Bladder left)
Social History
Tobacco: Former smoker
Alcohol: None
Drug: None
Personal:
Living: with family
Employment: Retired
Family History
Family History: Other (Noncontributory)
Review of Systems
<Sonia Royal LIEN SEARCHER - Last Filed: 08/07/25 22:50>
Review of Systems
Allergies reviewed?: Yes
All Other Systems: ROS reviewed and negative except as documented in HPI and ROS
Constitutional: Reports fatigue
EENT: Reports no symptoms
Respiratory: Reports no symptoms
Cardiac: Reports other (Left shoulder neck and arm pain 2 nights ago)
ABD/GI: Reports anorexia
: Reports no symptoms
Musculoskeletal: Reports no symptoms
Skin: Reports no symptoms
Neurological: Reports weakness
Psychiatric: Reports no symptoms
Phy Exam
<Sonia Royal LIEN SEARCHER - Last Filed: 08/07/25 22:50>
General Physical Exam
General Presentation: mild distress
General age: appears stated age
General Skin: warm and dry
General Mental: alert
Cardiovascular Exam
Cardiovascular Exam: regular rate/rhythm and no edema
Pulmonary Exam
Pulmonary Exam: lungs clear and no respiratory distress
Gastrointestinal Exam
Gastrointestinal Exam: normal bowel sounds, non tender, soft and no organomegaly
Musculoskeletal Exam
Musculoskeletal Exam: full ROM and neuro vasc intact
Skin Exam
Skin Exam: normal color, warm/dry and no rash
Psychiatric Exam
Psychiatric Exam: normal mood/affect
Scores
<Sonia Royal NP - Last Filed: 08/07/25 22:50>
Heart Score for Chest Pain Patients
STEMI patient?: No
History: Highly Suspicious
ECG: Normal
Age: >/= 65 years
Risk Factors: >/= 3 Risk Factors or History of CAD
Troponin: >/= 3 x Normal Limit
Heart Score for Chest Pain Patients: 8
Heart Score Risk: 72.7 % MACE over next 6 weeks
Course
<Sonia Royal LIEN SEARCHER - Last Filed: 08/07/25 22:50>
Orders/Labs/Results
Orders:
Orders
08/07/25 Breakfast
Cholesterol Lowering
Cholesterol Lowering: Sodium, 2 Gram
08/07/25 17:42
EKG [Electrocardiogram (*1)] Urgent
Reason for Study: Chest Pain
08/07/25 17:43
EKG- Treatment ONCE
08/07/25 18:23
Complete Blood Count/With Diff Urgent
Comprehensive Metabolic Panel Urgent
Serum Osmolality Urgent
Comment: ADD ON
Troponin I Urgent
08/07/25 18:24
PTT Urgent
Comment: Obtain baseline before beginning heparin infusion if not already collected
08/07/25 18:25
Urinalysis Reflex To Culture Urgent
08/07/25 18:56
0.9% Sodium Chloride 1000 ml [Nss] 1,000 ml IV BOLUS
08/07/25 19:50
Metoprolol [Lopressor] 25 mg PO NOW STA
08/07/25 19:[address] Non Medication Order As Directed
Physician Order: PTT 6 hours after initial start of Heparin infusion
Above order entered?: Yes
08/07/25 20:00
Heparin 07885 Units/250 ml 25,000 units in 250 ml IV PER PROTOCOL
Weight to be used for heparin protocol in kilograms (kg):: 50.3
Protocol:: Cardiac Tx/Acute Coronary
PTT Goal Range to be used:: PTT 73 to 111 seconds
Order type:: Initial
INITIAL Infusion Dose (UNITS/KG/hr) & then follow protocol:: 12 units/kg/hr
Infusion Dose in UNITS/hr & then follow protocol (UNITS/hr):: 600
INFUSION RATE in mL/hr & then follow protocol (mL/hr):: 6
PTT less than or equal to 64 seconds:: Increase rate by 200 units/hr (+ 2 mL/hr)
PTT 64.1 to 72.9 seconds:: Increase rate by 100 units/hr (+ 1 mL/hr)
PTT 73 to 111 seconds:: Target Range. No change in rate.
PTT 111.1 to 130.9 seconds:: Decrease rate by 100 units/hr (- 1 mL/hr)
PTT 131 to 199.9 seconds:: HOLD for 1 hr. Then decrease rate by 200 units/hr (- 2 mL/hr)
PTT greater than or equal to 200 seconds:: HOLD for 2 hrs & Notify Provider. Then decrease by 200 units/hr (-
2 mL/hr)
Lab follow-up:: Each change, PTT q6h until 2 consecutive are therapeutic. Then PTT
daily.
08/07/25 20:03
CARDIOLOGY CONSULT Urgent
Consulting Provider: Santiago Eid
Was physician already notified: Yes
08/07/25 20:28
Add On- LAB Stat
Tests Added?: serum osmolality, urine osmolality and urine sodium
08/07/25 20:30
Admit/Transfer Patient As Directed
Co-Sign Provider:
Level of Care: Observation services
Assign to:: Telemetry
Physician / Group: melissa salmeron
Diagnosis: chest pain
Reason for Telemetry: Chest Pain syndromes
Date to Stop Telemetry: 08/09/25
Time to Stop Telemetry: 11:00
PRN Pain Medication Management As Directed
May give lesser potent ordered pain med per pt: Yes
preference::
Protocol:: Medication orders for pain may be administered in a
manner that supports deferring to patient preference
when the pt is:
- Requesting an ordered lesser potent pain medication.
Least to most potent pain medications are defined
as: acetaminophen < NSAID < tramadol < opioids
(morphine, oxycodone, hydromorphone).
- Requesting a lesser dose of the same medication IF
ORDERED.
- Requesting a less intrusive route of administration
if both routes are prescribed by the provider (PO <
IV).
08/07/25 20:31
Code Status As Directed
Resuscitation Status: Full Code
08/07/25 20:47
Osmolality, Random Urine Urgent
Comment: CANNOT ADD ON, NO SPECIMEN IN LAB
Urine Sodium Urgent
Comment: CANNOT ADD ON, NO SPECIMEN IN LAB
08/07/25 22:34
Electrocardiogram (*1) Q3H
Reason for Study: Chest Pain
Comment: at admission and Q3H for total of 3, to be done with each troponin
Troponin I Q3H
Comment: at admit & Q3H for 3 total including ED draws, obtain ECG with each level
08/07/25 22:34
Glycohemoglobin (HgbA1c) Routine
Heparin Protocol- PTT Orders As Directed
PTT per Heparin protocol: -Obtain CBC and baseline PTT - if not already collected.
-Obtain PTT 6 hours from start of infusion. Then, every 6 hours until 2 consecutive
PTT's are therapeutic. Then, PTT Daily.
-With each rate change, obtain PTT every 6 hours until 2 consecutive PTT's are
therapeutic. Then, PTT Daily.
Activity As Directed
Activity Level: As Tolerated
INT (Intravenous Needle Therapy) As Directed
Comment: maintain peripheral IV access
Intake/ Output As Directed
Frequency: Per unit guidelines
Notify MD As Directed
Notify physician if: PTT is greater than or equal to 200.
Vital Signs As Directed
Frequency: q4h
Weight As Directed
Frequency: Daily
Pt Eval And Treat Routine
Activity Level: As Tolerated
08/08/25 01:34
Electrocardiogram (*1) Q3H
Reason for Study: Chest Pain
Comment: at admission and Q3H for total of 3, to be done with each troponin
Troponin I Q3H
Comment: at admit & Q3H for 3 total including ED draws, obtain ECG with each level
08/08/25 04:34
Electrocardiogram (*1) Q3H
Reason for Study: Chest Pain
Comment: at admission and Q3H for total of 3, to be done with each troponin
Troponin I Q3H
Comment: at admit & Q3H for 3 total including ED draws, obtain ECG with each level
08/08/25 06:00
Basic Metabolic Panel IN AM
Cardiovascular Evaluation IN AM
Complete Blood Count/No Diff IN AM
08/08/25 12:00
Aspirin Chewable [Low Strength Aspirin] 81 mg PO NOON
Atorvastatin [Lipitor] 40 mg PO NOON
Metoprolol Xl [Toprol Xl] 25 mg PO NOON
Pantoprazole [Protonix] 40 mg PO NOON
08/09/25 06:00
Basic Metabolic Panel IN AM
Complete Blood Count/No Diff IN AM
Complete Blood Count/No Diff Q2D
Comment: notify provider: Platelet count < 130,000 or decrease by 50% from baseline
08/09/25 11:00
DC Protocol for Telemetry ONCE
08/10/25 06:00
Basic Metabolic Panel IN AM
Complete Blood Count/No Diff IN AM
08/11/25 06:00
Basic Metabolic Panel IN AM
Complete Blood Count/No Diff IN AM
Complete Blood Count/No Diff Q2D
Comment: notify provider: Platelet count < 130,000 or decrease by 50% from baseline
08/13/25 06:00
Complete Blood Count/No Diff Q2D
Comment: notify provider: Platelet count < 130,000 or decrease by 50% from baseline
08/15/25 06:00
Complete Blood Count/No Diff Q2D
Comment: notify provider: Platelet count < 130,000 or decrease by 50% from baseline
08/17/25 06:00
Complete Blood Count/No Diff Q2D
Comment: notify provider: Platelet count < 130,000 or decrease by 50% from baseline
08/19/25 06:00
Complete Blood Count/No Diff Q2D
Comment: notify provider: Platelet count < 130,000 or decrease by 50% from baseline
08/21/25 06:00
Complete Blood Count/No Diff Q2D
Comment: notify provider: Platelet count < 130,000 or decrease by 50% from baseline
08/23/25 06:00
Complete Blood Count/No Diff Q2D
Comment: notify provider: Platelet count < 130,000 or decrease by 50% from baseline
Abnormal Lab Results
08/07/25
18:23
WBC 11.6 H 10^3/uL
(4.8-10.8)
RBC 4.19 L 10^6/uL
(4.20-5.40)
MCH 32.2 H pg
(27.0-31.0)
MPV 10.7 H fL
(7.4-10.4)
Absolute Neuts (auto) 8.9 H 10^3/uL
(1.4-6.5)
Absolute Monos (auto) 0.8 H 10^3/uL
(0.1-0.6)
Neutrophils % 76.9 H %
(42.2-75.2)
Lymphocytes % 14.4 L %
(20.5-51.1)
Sodium 129 L mmol/L
(135-145)
BUN 37 H mg/dl
(7-17)
Glucose 118 H mg/dl
(70-99)
Troponin I 0.430 H* ng/ml
08/07/25 18:23
08/07/25 18:23
Vital Signs
Initial and Last Documented VS:
Initial Vital Signs
Temp Pulse Resp BP Pulse Ox
97.8 F 96 18 86/66 99
08/07/25 18:02 08/07/25 18:02 08/07/25 18:02 08/07/25 18:02 08/07/25 18:02
Last Documented Vital Signs
Temp Pulse Resp BP Pulse Ox
97.8 F 85 17 86/69 93
08/07/25 18:02 08/07/25 22:15 08/07/25 22:15 08/07/25 22:00 08/07/25 22:15
<Jorge Weeks MD - Last Filed: 08/07/25 20:20>
Orders/Labs/Results
Orders:
Orders
08/07/25 Breakfast
Cholesterol Lowering
Cholesterol Lowering: Sodium, 2 Gram
08/07/25 17:42
EKG [Electrocardiogram (*1)] Urgent
Reason for Study: Chest Pain
08/07/25 17:43
EKG- Treatment ONCE
08/07/25 18:23
Complete Blood Count/With Diff Urgent
Comprehensive Metabolic Panel Urgent
Serum Osmolality Urgent
Comment: ADD ON
Troponin I Urgent
08/07/25 18:24
PTT Urgent
Comment: Obtain baseline before beginning heparin infusion if not already collected
08/07/25 18:25
Urinalysis Reflex To Culture Urgent
08/07/25 18:56
0.9% Sodium Chloride 1000 ml [Nss] 1,000 ml IV BOLUS
08/07/25 19:50
Metoprolol [Lopressor] 25 mg PO NOW STA
08/07/25 19:[address] Non Medication Order As Directed
Physician Order: PTT 6 hours after initial start of Heparin infusion
Above order entered?: Yes
08/07/25 20:00
Heparin 27011 Units/250 ml 25,000 units in 250 ml IV PER PROTOCOL
Weight to be used for heparin protocol in kilograms (kg):: 50.3
Protocol:: Cardiac Tx/Acute Coronary
PTT Goal Range to be used:: PTT 73 to 111 seconds
Order type:: Initial
INITIAL Infusion Dose (UNITS/KG/hr) & then follow protocol:: 12 units/kg/hr
Infusion Dose in UNITS/hr & then follow protocol (UNITS/hr):: 600
INFUSION RATE in mL/hr & then follow protocol (mL/hr):: 6
PTT less than or equal to 64 seconds:: Increase rate by 200 units/hr (+ 2 mL/hr)
PTT 64.1 to 72.9 seconds:: Increase rate by 100 units/hr (+ 1 mL/hr)
PTT 73 to 111 seconds:: Target Range. No change in rate.
PTT 111.1 to 130.9 seconds:: Decrease rate by 100 units/hr (- 1 mL/hr)
PTT 131 to 199.9 seconds:: HOLD for 1 hr. Then decrease rate by 200 units/hr (- 2 mL/hr)
PTT greater than or equal to 200 seconds:: HOLD for 2 hrs & Notify Provider. Then decrease by 200 units/hr (-
2 mL/hr)
Lab follow-up:: Each change, PTT q6h until 2 consecutive are therapeutic. Then PTT
daily.
08/07/25 20:03
CARDIOLOGY CONSULT Urgent
Consulting Provider: Santiago Eid
Was physician already notified: Yes
08/07/25 20:28
Add On- LAB Stat
Tests Added?: serum osmolality, urine osmolality and urine sodium
08/07/25 20:30
Admit/Transfer Patient As Directed
Co-Sign Provider:
Level of Care: Observation services
Assign to:: Telemetry
Physician / Group: melissa salmeron
Diagnosis: chest pain
Reason for Telemetry: Chest Pain syndromes
Date to Stop Telemetry: 08/09/25
Time to Stop Telemetry: 11:00
PRN Pain Medication Management As Directed
May give lesser potent ordered pain med per pt: Yes
preference::
Protocol:: Medication orders for pain may be administered in a
manner that supports deferring to patient preference
when the pt is:
- Requesting an ordered lesser potent pain medication.
Least to most potent pain medications are defined
as: acetaminophen < NSAID < tramadol < opioids
(morphine, oxycodone, hydromorphone).
- Requesting a lesser dose of the same medication IF
ORDERED.
- Requesting a less intrusive route of administration
if both routes are prescribed by the provider (PO <
IV).
08/07/25 20:31
Code Status As Directed
Resuscitation Status: Full Code
08/07/25 20:47
Osmolality, Random Urine Urgent
Comment: CANNOT ADD ON, NO SPECIMEN IN LAB
Urine Sodium Urgent
Comment: CANNOT ADD ON, NO SPECIMEN IN LAB
08/07/25 22:34
Electrocardiogram (*1) Q3H
Reason for Study: Chest Pain
Comment: at admission and Q3H for total of 3, to be done with each troponin
Troponin I Q3H
Comment: at admit & Q3H for 3 total including ED draws, obtain ECG with each level
08/07/25 22:34
Glycohemoglobin (HgbA1c) Routine
Heparin Protocol- PTT Orders As Directed
PTT per Heparin protocol: -Obtain CBC and baseline PTT - if not already collected.
-Obtain PTT 6 hours from start of infusion. Then, every 6 hours until 2 consecutive
PTT's are therapeutic. Then, PTT Daily.
-With each rate change, obtain PTT every 6 hours until 2 consecutive PTT's are
therapeutic. Then, PTT Daily.
Activity As Directed
Activity Level: As Tolerated
INT (Intravenous Needle Therapy) As Directed
Comment: maintain peripheral IV access
Intake/ Output As Directed
Frequency: Per unit guidelines
Notify MD As Directed
Notify physician if: PTT is greater than or equal to 200.
Vital Signs As Directed
Frequency: q4h
Weight As Directed
Frequency: Daily
Pt Eval And Treat Routine
Activity Level: As Tolerated
08/08/25 01:34
Electrocardiogram (*1) Q3H
Reason for Study: Chest Pain
Comment: at admission and Q3H for total of 3, to be done with each troponin
Troponin I Q3H
Comment: at admit & Q3H for 3 total including ED draws, obtain ECG with each level
08/08/25 04:34
Electrocardiogram (*1) Q3H
Reason for Study: Chest Pain
Comment: at admission and Q3H for total of 3, to be done with each troponin
Troponin I Q3H
Comment: at admit & Q3H for 3 total including ED draws, obtain ECG with each level
08/08/25 06:00
Basic Metabolic Panel IN AM
Cardiovascular Evaluation IN AM
Complete Blood Count/No Diff IN AM
08/08/25 12:00
Aspirin Chewable [Low Strength Aspirin] 81 mg PO NOON
Atorvastatin [Lipitor] 40 mg PO NOON
Metoprolol Xl [Toprol Xl] 25 mg PO NOON
Pantoprazole [Protonix] 40 mg PO NOON
08/09/25 06:00
Basic Metabolic Panel IN AM
Complete Blood Count/No Diff IN AM
Complete Blood Count/No Diff Q2D
Comment: notify provider: Platelet count < 130,000 or decrease by 50% from baseline
08/09/25 11:00
DC Protocol for Telemetry ONCE
08/10/25 06:00
Basic Metabolic Panel IN AM
Complete Blood Count/No Diff IN AM
08/11/25 06:00
Basic Metabolic Panel IN AM
Complete Blood Count/No Diff IN AM
Complete Blood Count/No Diff Q2D
Comment: notify provider: Platelet count < 130,000 or decrease by 50% from baseline
08/13/25 06:00
Complete Blood Count/No Diff Q2D
Comment: notify provider: Platelet count < 130,000 or decrease by 50% from baseline
08/15/25 06:00
Complete Blood Count/No Diff Q2D
Comment: notify provider: Platelet count < 130,000 or decrease by 50% from baseline
08/17/25 06:00
Complete Blood Count/No Diff Q2D
Comment: notify provider: Platelet count < 130,000 or decrease by 50% from baseline
08/19/25 06:00
Complete Blood Count/No Diff Q2D
Comment: notify provider: Platelet count < 130,000 or decrease by 50% from baseline
08/21/25 06:00
Complete Blood Count/No Diff Q2D
Comment: notify provider: Platelet count < 130,000 or decrease by 50% from baseline
08/23/25 06:00
Complete Blood Count/No Diff Q2D
Comment: notify provider: Platelet count < 130,000 or decrease by 50% from baseline
Abnormal Lab Results
08/07/25
18:23
WBC 11.6 H 10^3/uL
(4.8-10.8)
RBC 4.19 L 10^6/uL
(4.20-5.40)
MCH 32.2 H pg
(27.0-31.0)
MPV 10.7 H fL
(7.4-10.4)
Absolute Neuts (auto) 8.9 H 10^3/uL
(1.4-6.5)
Absolute Monos (auto) 0.8 H 10^3/uL
(0.1-0.6)
Neutrophils % 76.9 H %
(42.2-75.2)
Lymphocytes % 14.4 L %
(20.5-51.1)
Sodium 129 L mmol/L
(135-145)
BUN 37 H mg/dl
(7-17)
Glucose 118 H mg/dl
(70-99)
Troponin I 0.430 H* ng/ml
08/07/25 18:23
08/07/25 18:23
Vital Signs
Initial and Last Documented VS:
Initial Vital Signs
Temp Pulse Resp BP Pulse Ox
97.8 F 96 18 86/66 99
08/07/25 18:02 08/07/25 18:02 08/07/25 18:02 08/07/25 18:02 08/07/25 18:02
Last Documented Vital Signs
Temp Pulse Resp BP Pulse Ox
97.8 F 85 17 86/69 93
08/07/25 18:02 08/07/25 22:15 08/07/25 22:15 08/07/25 22:00 08/07/25 22:15
<Sonia Royal NP - Last Filed: 08/07/25 22:50>
*Pulse Oximetry
SaO2: 97
Oxygen Mode of Delivery: Room air
Patient hypoxic: yes
*Critical Care Note
Total Time (30-74mins, 75-104mins- exclusive of procedures): Not Applicable
<Sonia Royal NP - Last Filed: 08/07/25 22:50>
Update Note
Update Note:
Patient to the emergency department for evaluation of extreme fatigue and weakness. She states symptoms have been ongoing for the past few days but became dramatically worse today she reports an episode of chest pain approximately 2 nights ago,
waking her from her sleep she states the pain was in her left shoulder left neck and left arm. Symptoms lasted for approximately 20 minutes and then resolved on its own. She reports pain came back a short time later but only lasted approximately 2
minutes since then she reports worsening weakness and fatigue. On arrival to ED BP is running low, mid 80s over low 60s. She was given a liter of normal saline and blood pressure is now holding in the low 100s over 70s. She reports chest
pressure. She took 324 mg of aspirin prior to the arrival of the ambulance. Labs reviewed. Troponin #1 0.430. Case discussed with who also evaluated this patient. consulted. Patient has had similar events in the past.
Last catheterization was completed in June 2024 -severe mitral regurgitation cardiomyopathy. Recommend Metoprolol 25 mg now, initiate heparin infusion, admit to hospitalist service and continue to trend troponin. Hold NTG for now due to
hypotension.
ED Attending Note
<Sonia Royal NP - Last Filed: 08/07/25 22:50>
-
Portions of this chart may have been created with voice recognition software.� Occasional wrong word or��sound alike� substitutions may have occurred due to the inherent limitations of voice recognition software.
<Jorge Weeks MD - Last Filed: 08/07/25 20:20>
ED Attending Note
Patient seen and examined by attending physician: Yes
I performed the substantive portion of visit, reviewed & personally made and approve the management plan that is documented in note by myself or JAVED.: Yes
ED Attending Note:
I have seen and evaluated the patient with a [id number] encounter. I have spoken to the [JAVED] and involved in the medical history, the physical exam, medical decision making.
Evaluation and management service: agree unless noted differently below.
Results interpretation: agree unless noted differently below.
85-year-old woman with history of hypertrophic cardiomyopathy, hypertension, hyperlipidemia presenting to the emergency department with weakness. Patient states that she is usually extremely weak for the past few days as well as having chest
pressure that been ongoing. Feels similar to her prior heart attack no shortness of breath. Mild nausea. No diaphoresis. Per medics she was hypotensive. Given fluids which improved her blood pressure. She did take aspirin prior to arrival.
EKG per my interpretation consistent with left bundle branch block. Blood work does show elevated troponin. Given ongoing chest pressure hypotension discussed with cardiology for possible catheterization given that we cannot give nitroglycerin.
After discussion with cardiology we will start heparin. She did have a recent catheterization done which did not show any blockages despite similar complaints. At this time we will admit for hospitalist for further serial troponins.
Discharge Plan
Departure
Patient Disposition: Admit
Date of Disposition: 08/07/25
Time of Disposition: 19:59
Presentation/result/management discussed w/ accepting MD/DO: Hospitalist
Patient with high blood pressure during this ER visit?: No
Covid-19: Not Applicable
Discharge Problem:
Chest pain
Interventions
Interventions:
*Risk Screen - Suicide Last Done: 08/07/25 18:02
*General Assessment Last Done: 08/07/25 18:02
*Neglect/Abuse Screening Last Done: 08/07/25 18:02
*ED- Fall Risk Assessment Last Done: 08/07/25 18:26
*ED COVID-19 Vaccine History Last Done: 08/07/25 18:02
*ED Influenza Vaccine History Last Done: 08/07/25 18:02
*Nursing Disposition Last Done: 08/07/25 21:40
ED- Cardiac Assessment Last Done: 08/07/25 18:26
Discharge Date and Time
Discharge Date/Time: 08/07/25 22:31
[2025-08-07] MEDS: NSS 1000 IV (19:12)
--- NOTE | 2025-08-07 20:09 | HPS.HSE ---
Family Physician
-
Family Physician: Joann Dimas MD
Chief Complaint
-
chest pain
History of Present Illness
85-year-old with past medical history of a coronary artery disease, GERD, hypertension, hypercholesteremia, diverticulitis presented to us with weakness. she states she has been feeling weak over the past few days but today weakness escalated. she
was not able to walk a step without catching breath. she was sob. she was complaining of dizziness. denied MEYER, or syncope. Reporting chest pressure currently.She reports 2 nights ago she woke with pain to her left shoulder left neck and left arm.
She states symptoms lasted approximately 20 minutes and then resolved on its own. She states pain returned a little while later however only lasted for 2 to 3 minutes. denied fever, chills, cough,congestion. denied abdominal pain,n,v,d. denied
dysuria or hematuria. Reports appetite has been diminished but she feels this is related to her losing her spouse approximately 6 weeks ago.
Patient started heparin drip, received a dose of metoprolol, resume normal saline x 1 bag in the ER. Admitting for further management
Medical History
Past Medical History
Past Medical History: Reports Other
Additional Past Medical History:
Cardiomyopathy, colonic polyps, depression, hypercholesteremia, constipation, breast cancer, obstructive sleep apnea, osteoarthritis, stage III CKD, GERD, falls, insomnia, subdural hematoma, thyroid nodule, insomnia
Past Surgical History: Reports Other
Additional Past Surgical History:
Left knee replacement, appendectomy, cataract surgery bilateral, left breast lumpectomy, bladder surgery, cardiac stents
Social History
Tobacco: Non-smoker
Alcohol: None
Drug: None
Personal: Single
Living: Alone
Family History
Family History: Not pertinent
Allergies / Home Medications
Allergies reflects when Allergies were last updated in [employer].
Home Medications with original date entered in [employer]
Allergy/Medication List:
Allergies
Allergy/AdvReac Type Severity Reaction Status Date / Time
aspirin Allergy Nausea / Verified 08/07/25 18:05
Vomiting
Cephalosporins Allergy Unknown Verified 08/07/25 18:05
iodine Allergy Unknown Verified 08/07/25 18:05
NSAIDS (Non-Steroidal Allergy Unknown Verified 08/07/25 18:05
Anti-Inflamma
penicillin G Allergy Nausea / Verified 08/07/25 18:05
Vomiting
Penicillins Allergy Nausea / Verified 08/07/25 18:05
Vomiting
Salicylates * Allergy Nausea / Verified 08/07/25 18:05
Vomiting
Sulfa (Sulfonamide Allergy Nausea / Verified 08/07/25 18:05
Antibiotics) Vomiting
sulfamethoxazole Allergy Nausea / Verified 08/07/25 18:05
Vomiting
trimethoprim Allergy Nausea / Verified 08/07/25 18:05
Vomiting
verapamil Allergy Shortness Verified 08/07/25 18:05
of Breath
Home Medications
pantoprazole 40 mg tablet,delayed release 40 mg PO NOON Gastrointestinal issue 09/30/20
ascorbic acid (vitamin C) 250 mg tablet (Vitamin C) 250 mg PO NOON Supplement 07/09/24
aspirin 81 mg chewable tablet 81 mg PO NOON Blood Clot Prevention/Tx 07/09/24
atorvastatin 40 mg tablet 40 mg PO NOON High Cholesterol 07/09/24
biotin 10,000 mcg chewable tablet (Hair, Skin and Nails (biotin)) 10,000 mcg PO NOON Supplement 07/09/24
cholecalciferol (vitamin D3) 25 mcg (1,000 unit) tablet (Vitamin D3) 25 mcg PO NOON Supplement 07/09/24
cyanocobalamin (vitamin B-12) 500 mcg tablet 500 mcg PO NOON Supplement 07/09/24
mavacamten 5 mg capsule (Camzyos) 5 mg PO NOON Heart Failure 07/09/24
metoprolol succinate 25 mg tablet,extended release 24 hr (Toprol XL) 25 mg PO NOON heart disease/condition 07/09/24
Review of Systems
-
Constitutional: Reports No Symptoms
EENT: Reports No Symptoms
Respiratory: Reports Trouble Breathing
Cardiac: Reports Chest Pain
Abdomen/GI: Reports No Symptoms
: Reports No Symptoms
Musculoskeletal: Reports No Symptoms
Skin: Reports No Symptoms
Neurological: Reports No Symptoms
Endocrine: Reports No Symptoms
Hematologic/Lymphatic: Reports No Symptoms
Psych: Reports No Symptoms
Physical Exam
Vital Signs
Vital Signs
Temp Pulse Resp BP Pulse Ox
97.8 F 91 15 102/66 98
08/07/25 18:02 08/07/25 19:45 08/07/25 19:45 08/07/25 19:00 08/07/25 19:45
Physical Exam
General: Well Developed, Well Nourished and No Apparent Distress
HEENT: NormoCephalic, Moist mucous membranes and Atraumatic
Respiratory: Clear
Cardiac: S1/S2 and Regular Rhythm; No Murmur or Rub
GI: Soft, Non Tender, Non Distended and Normal Bowel Sounds; No Organomegaly
Rectal: Deferred by Provider
Musculoskeletal: No Clubbing, No Cyanosis and No Edema
Skin: No Rash
Neuro: AO x 3 and Nonfocal/grossly intact
Psych: Calm
Laboratory Results
-
08/07/25 18:23
08/07/25 18:23
Laboratory Results
Total Bilirubin 0.8 mg/dl (0.2-1.3) 08/07/25 18:23
AST 31 U/L (14-36) 08/07/25 18:23
ALT 21 U/L (0-35) 08/07/25 18:23
Alkaline Phosphatase 52 U/L (38-126) 08/07/25 18:23
Troponin I 0.430 ng/ml H* 08/07/25 18:23
Data Reviewed
-
Lab Data: Labs Reviewed by me
Impression/Plan
-
# Chest pain
# History of CAD with cardiac stents
#HOCM/Severe mitral regurgitation
- IV heparin continued
- Continue to trend Trope
- Cardiology consulted
# Leukocytosis likely reactive
- WBCs 11.6, patient is afebrile
- Continue to monitor
#generalized weakness
-PT consulted.
# Hyponatremia concern for hypovolemia
- Sodium 129
- Obtain serum osmolality, urine osmolality, urine sodium
- Received normal saline in the ER
- Monitor BMP in the morning
# History of hypotension
- from severe MR/HOCM
# GERD- cont Protonix
# HLD- cont atorvastatin
DVT PPX - on heparin gtt
Code status - Full Code
[2025-08-07 20:16] LABS: APTT 33.5 Sec (23.4-35.0)
[2025-08-07] MEDS: HEPARIN 25000 UNITS/250 ML IV (20:34)
[2025-08-07] MEDS: LOPRESSOR 25 MG PO (20:37)
--- NOTE | 2025-08-07 20:48 | W.PN.UPDATE ---
Update Note
Progress Note Update
This note serves as an addendum to the H&P by road marker JAVED�
Dejah SHERLY�
HPI�
85F Home alone
PMHX: CAD, GERD, HTN, HLD, diverticulitis
seen at ER
- evaluation for progressive weakness over the past few days
- gradual and subacute ambulatorily decline due to weakness - unable to walk a step without catching breath
+ dizziness
+ chest pressure
- denied MEYER or syncope
- 2 nights ago she woke with left shoulder left neck and left arm pain x lasted 20 minutes and then resolved on its own.
- pain returned a little while later however only lasted for 2 to 3 minutes.
- Poor PO fluid intake since she Loss her 6 weeks ago
Relevant VS
Temp Pulse Resp BP Pulse Ox
97.8 F 87 21 91/64 94
08/07/25 18:02 08/07/25 20:38 08/07/25 20:38 08/07/25 20:38 08/07/25 20:38
PE
Gen: thin and pale complexion , NAD
HEENT: anicteric
Neck: supple
Lungs: CTA
Cor: RRR S1 S2
Abdomen:�soft NT NG
FORMING AND ASSEMBLING SUPERVISOR: NFND
MS: no edema
Relevant Data�
07/11/24 03/30/25 08/07/25
16:03 09:20 18:23
WBC 11.6 H
Hgb 12.5 13.5
Plt Count 152
APTT
Sodium 129 L
Carbon Dioxide 24
BUN 37 H
Creatinine 1.0 1.0
eGFR 55.55 55.21
Troponin I 1.080 H* 0.430 H*
EKG
NORMAL SINUS RHYTHM
LEFT AXIS DEVIATION
LEFT BUNDLE BRANCH BLOCK
ABNORMAL ECG
WHEN COMPARED WITH ECG OF 10-Jul-2024 07:32,
T WAVE INVERSION NO LONGER EVIDENT IN INFERIOR LEADS
T WAVE INVERSION LESS EVIDENT IN ANTEROLATERAL LEADS
01/18/25 TTE
LVEF 60% LVH - septum thicker than posterior wall. ( 1.3 cm).
Peak LVOT gradient at rest of 14 mmHg; 109 with Valsalva and 25 with the patient standing.
Mild mitral regurgitation.
Mild aortic regurgitation.
Mild tricuspid regurgitation. Estimated pulmonary artery pressure of 22 mmHg.
Compared to the previous echo from Jun 2024, at that time, EF was 35-40% with distal septal and apical akinesis, and distal inferior/anterior/lateral hypokinesis with severe MR.
ASSESSMENT & PLAN
Probably ACS ? NSTEMI - elevated TPNI
HX CAD with cardiac stents
HX HOCM/Severe MR
HLD
Recovered LVEF to 60 % compare to 35-40 % in Jun 2024
- Agree Heparin gtt
- Trend TPNI
- c/w ASA
- c/w REIMBURSEMENT SPEC Metoprolol XL, Atorvastatin 40 HS
- DCA card consulted
Leukocytosis likely reactive
- WBCs 11.6, afebrile
- Trend WCC
Generalized weakness
- PT
Hyponatremia Na 129 s/p IV NS at ER
- Poor PO fluid intake since she Loss her 6 weeks ago
- suspect hypovolemia
- Pending Sr Osm, Ur Osm, Ur Na
- Received normal saline in the ER
- Trend Na in AM
HX hypotension
Hypovolemia
DVT Px: Heparin gtt
Full code
IP TLM
[2025-08-07] MEDS: TUMS CHEWABLE TABLET 200 MG PO (23:48)
[2025-08-07 23:49] LABS: Urine Character Slightly Cloudy (Clear)
[2025-08-08] VITALS (11 sets, daily range): BP systolic 79–108; BP diastolic 46–79; PULSE 78; O2SAT 97
[2025-08-08 00:02] LABS: Troponin I 0.729 ng/ml
--- NOTE | 2025-08-08 00:31 | PTCARENOTE ---
Pt admitted to 2254 from ED. AAOx3, ambulated with RW to bed. SR on tele. VSS, c/o nausea, and some 'chest heaviness' at times. denies SOB or dizziness. Hep gtt infusing at 600 units/hr. tums ordered and given. Call brown within reach.
[2025-08-08 01:14] LABS: Urine Red Blood Cell 0-2 /HPF (0-2); Urine White Cell 30-40 /HPF (0-5)
[2025-08-08 03:12] LABS: APTT 141.9 Sec (23.4-35.0)
[2025-08-08 03:32] LABS: Troponin I 1.200 ng/ml
[2025-08-08 06:12] LABS: Hematocrit 34.2 % (37.0-47.0); Hemoglobin 12.1 g/dL (12.0-16.0); Mean Corp Hgb Conc. 35.4 g/dL (33.0-37.0); Mean Corpuscular Volume 95.3 fL (81.0-99.0); Platelet Count 135 10^3/uL (130-400); Red Cell Dist. Width 13.2 % (11.5-14.5)
[2025-08-08 06:21] LABS: Troponin I 1.700 ng/ml
[2025-08-08 06:23] LABS: Blood Urea Nitrogen 34 mg/dl (7-17); Calcium 8.5 mg/dl (8.4-10.2); Carbon Dioxide 20 mmol/L (22-30); Chloride 102 mmol/L (98-107); Glucose 95 mg/dl (70-99); HDL Cholesterol 68 mg/dl; LDL Cholesterol, Calculated 54 mg/dl; Potassium 4.6 mmol/L (3.5-5.1); Sodium 127 mmol/L (135-145); Very Low Density Lipoprotein 9 mg/dl (0-30); eGFR > 60.00
[2025-08-08 08:10] LABS: Glycohemoglobin (HgbA1c) 5.3 % (4.0-5.9)
[2025-08-08 09:00] LABS: Troponin I 1.760 ng/ml
--- NOTE | 2025-08-08 09:54 | CON.CAR ---
Addendum entered and electronically signed by Erwin Preston MD 08/08/25 18:49:
Complicated 85-year-old woman with hypertrophic cardiomyopathy, previously mavacamten which produced incipient cardiogenic shock and severe mitral regurgitation 2000 performed. More recently, alcohol septal ablation was planned at the [facility]
[place] but ultimately not performed as it was felt that the septal supervisor corduroy cutting subtended too large an area of myocardium to safely permit alcohol septal ablation. She is planned for SESAME procedure (Septal scarring along the mid line
endocardium), a form of transcatheter myomectomy scheduled for August [address] [facility] by Dr. Rizzo but admitted with profound weakness and left shoulder and chest discomfort which is mild. Found to have a troponin of 1.7,
initially presented with IVCD and anterior ST elevation and evolved anterolateral T wave inversions, which is more similar to her baseline tracing. Echo shows EF of 35% with severe MR and LAD distribution wall motion abnormality.
PMH: HCM, LAD atherectomy 2020 with Xience stent to mid LAD, cardiac catheterization 2023 showed moderate mid LAD and D1 disease with myocardial bridge and distal LAD, history of traumatic subdural hematoma 2021, hyperlipidemia, statin intolerance,
left breast cancer with chemoradiation 2001, sleep apnea, osteoarthritis, fibromyalgia, anxiety and depression
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
Current meds: IV heparin, aspirin 81 mg a day, atorvastatin 40 mg a day, metoprolol ER 25 mg a day, pantoprazole
Rest of history as below. Reviewed in detail and agree, unless otherwise specified
92/79, pulse 78, respiratory rate 18, weight is 49.7 kg no acute distress, lungs are clear, loud systolic murmur across precordium, JVD okay, no edema
Echo 08/08/2025: EF 35%, mild LVH with asymmetric septal hypertrophy, mid to distal anteroseptal and anterolateral hypokinesis as well as apex. LVOT gradient 43/21 mmHg, normal RV, mildly dilated LA, mild aortic regurgitation, severe mitral
regurgitation, moderate to severe TR, pulmonary artery pressures 28, small pericardial effusion
Hemoglobin is 12.1, sodium is 127, BUN and creatinine are 34 and 0.8, troponin is 1.64, proBNP is 26,400
Impression/Plan:
See below. Reviewed in detail and agree, unless otherwise specified
She presents with LAD distribution hypokinesis with a troponin of 1.7 with known hypertrophic cardiomyopathy - by catheterization 2023 she had a patent LAD stent with a moderate mid RCA stenosis and a stenosis in a diagonal.
It is unclear whether she has a true ACS or whether her chest pain, CHF and decreased LV function is a reflection of hypertrophic cardiomyopathy or Takotsubo cardiomyopathy.
She has severe MR. She also had severe MR when she presented in incipient cardiogenic shock on mavacamten. This subsequently improved.
Despite LV dysfunction and severely elevated proBNP she is not clinically in severe distress at present.
Best option is to continue optimal medical therapy and supportive care. I placed a call to her [place] law librarian Dr. Jason Rizzo who is scheduled to perform her SESAME procedure on Wednesday. I await his return call. If clinically stable, I
would transfer her to the [facility] over the next 24 to 48 hours for further management and hopefully her sesame procedure.
If clinically unstable we may need to consider cardiac catheterization here at [facility].
Original Note:
Consultation
Consultation Request
Date/Time Consultation Performed: 08/08/25
Requesting Provider: Dr. Reeder
Performing Provider: Cat Faustin PA-C for Dr. RIDGE Preston
Reason for Consultation: weakness, elevated troponin
Medical History
-
Chief Complaint: weakness
History of Present Illness:
HPI:
Patient is an 85-year-old female with past medical history of HOCM, CAD status post LAD and D2 stenting 2020 who was admitted in June 2024 with possible Takotsubo cardiomyopathy in setting of severe MR and was in incipient cardiogenic shock no on
Camzyos. Camzyos was discontinued and ultimately patient required transfer to [facility]. She subsequently improved and was discharged off of Camzyos. She then was planned for alcohol septal ablation at [facility]
which took place 05/08/25, however was aborted due to significant myocardial territory subtended by first septal supervisor corduroy cutting (including RV septum and RV moderator band). Patient reports she is scheduled on Monday 08/13 for SESAME procedure.
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 States over the last 3 days she has had profound weakness. States she initially also had some L neck and arm discomfort with some chest pains
which were 'not excruciating' and have not recurred. trops 1.7. no present CP.
Past Med Hx:
HOCM s/p aborted ETOH septal ablation 05/08/25 at [place], planned for SESAME procedure 08/13/25
Coronary artery disease
10/01/20 atherectomy to the LAD and diagonal bifurcation and T stenting with a 2.5/8 mm in the diagonal and 2.5/28 mm Susana Xience V drug-eluting stent in the LAD.
10/12/22 Cor angio for CP patent LAD stents and no new significant cor dz
07/10/24 Modest progression of CAD in mid RCA and at origin of 1st diag branch. 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
h/o Traumatic brain injury
she fell out of her bed and hit her head, developed hallucinations approximately 3 weeks later, found to have right subdural collection with subacute to chronic SDH at [facility] 10/2021
Hyperlipidemia with statin intolerance
Left breast cancer status post lumpectomy, chemotherapy and radiation 2001.
Sleep apnea
Fibromyalgia
Osteoarthritis
Dyslipidemia (h/o poorly karla statin but recently tolerating atorvastatin)
Anxiety and depression
Past Medical History
Past Medical History: Other (in HPI)
Social History
Tobacco: Non-Smoker
Alcohol: None
Drug: None
Personal:
Family History
Family History: Reviewed & Not Pertinent
Allergies / Home Medications
Allergy/AdvReac Type Severity Reaction Status Date / Time
aspirin Allergy Nausea / Verified 08/07/25 18:05
Vomiting
Cephalosporins Allergy Unknown Verified 08/07/25 18:05
iodine Allergy Unknown Verified 08/07/25 18:05
NSAIDS (Non-Steroidal Allergy Unknown Verified 08/07/25 18:05
Anti-Inflamma
penicillin G Allergy Nausea / Verified 08/07/25 18:05
Vomiting
Penicillins Allergy Nausea / Verified 08/07/25 18:05
Vomiting
Salicylates * Allergy Nausea / Verified 08/07/25 18:05
Vomiting
Sulfa (Sulfonamide Allergy Nausea / Verified 08/07/25 18:05
Antibiotics) Vomiting
sulfamethoxazole Allergy Nausea / Verified 08/07/25 18:05
Vomiting
trimethoprim Allergy Nausea / Verified 08/07/25 18:05
Vomiting
verapamil Allergy Shortness Verified 08/07/25 18:05
of Breath
�Medication �Instructions �Recorded �Confirmed �Type
pantoprazole 40 mg tablet,delayed 40 mg PO NOON Gastrointestinal 09/30/20 08/07/25 History
release issue
ascorbic acid (vitamin C) 250 mg 250 mg PO NOON Supplement 07/09/24 07/09/24 History
tablet (Vitamin C)
aspirin 81 mg chewable tablet 81 mg PO NOON Blood Clot 07/09/24 07/09/24 History
Prevention/Tx
atorvastatin 40 mg tablet 40 mg PO NOON High Cholesterol 07/09/24 08/07/25 History
biotin 10,000 mcg chewable tablet 10,000 mcg PO NOON Supplement 07/09/24 08/07/25 History
(Hair, Skin and Nails (biotin))
cholecalciferol (vitamin D3) 25 25 mcg PO NOON Supplement 07/09/24 08/07/25 History
mcg (1,000 unit) tablet (Vitamin
D3)
cyanocobalamin (vitamin B-12) 500 500 mcg PO NOON Supplement 07/09/24 08/07/25 History
mcg tablet
metoprolol succinate 25 mg 25 mg PO NOON heart 07/09/24 08/07/25 History
tablet,extended release 24 hr disease/condition
(Toprol XL)
Review of Systems
-
History Source: Patient
All other systems: Negative unless noted
Physical Exam
Vital Signs
Temp Pulse Resp BP Pulse Ox
97.8 F 85 18 97/46 99
08/08/25 07:34 08/08/25 08:18 08/08/25 02:36 08/08/25 08:18 08/08/25 08:16
Lab Results
08/08/25 05:45
08/08/25 05:45
Troponin I 1.760 ng/ml H* 08/08/25 08:25
Physical Exam
General: No Apparent Distress, Comfortable and Other (sitting in chair)
HEENT: Normocephalic, Anicteric and Moist Mucous Membranes
Respiratory: Clear and Non Labored Respirations
Cardiac: S1/S2, Regular Rhythm and Murmur
GI: Soft, Non Tender, Non Distended and Normal Bowel Sounds
Musculoskeletal: No Clubbing, No Cyanosis and No Edema
Skin: Warm and Dry
Neuro: AO x 3
Impression / Plan
-
Primary Information Developer: Dr. RIDGE [place] and Dr. Paz at [place]
Assessment:
Presentation with weakness
Hypotension
Neck/L arm/chest discomfort
Elevated troponin, concern for NSTEMI
HOCM s/p aborted ETOH septal ablation 05/08/25 at [place], planned for SESAME procedure 08/13/25
Coronary artery disease
10/01/20 atherectomy to the LAD and diagonal bifurcation and T stenting with a 2.5/8 mm in the diagonal and 2.5/28 mm Susana Xience V drug-eluting stent in the LAD.
10/12/22 Cor angio for CP patent LAD stents and no new significant cor dz
07/10/24 Modest progression of CAD in mid RCA and at origin of 1st diag branch. 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
h/o Traumatic brain injury
she fell out of her bed and hit her head, developed hallucinations approximately 3 weeks later, found to have right subdural collection with subacute to chronic SDH at [facility] 10/2021
Hyperlipidemia with statin intolerance
Left breast cancer status post lumpectomy, chemotherapy and radiation 2001.
Sleep apnea
Fibromyalgia
Osteoarthritis
Dyslipidemia (h/o poorly karla statin but recently tolerating atorvastatin)
Anxiety and depression
Echo 07/10/2024: EF 35 to 40%, distal septum and apex akinetic, distal inferior, distal anterior and distal lateral hypokinetic, hokum with LVOT gradients difficult to assess due to severe MR, systolic anterior motion of anterior mitral valve
leaflet with severe MR, mild AR, moderate TR, PAP 40 to 45 mmHg
ECHO 01/18/25: EF 60%, LVH with septum thicker than posterior wall, peak LVOT gradient at rest 14, 109 with Valsalva and 25 with standing, mild MR, mild AR, mild TR, PAP 22 mmHg
Plan:
- Patient presents with profound weakness x 3 days of unclear etiology. Did have episode of neck/left arm/chest discomfort several days ago without recurrence
- She is medically complex
- She has known HOCM and had aborted alcohol septal ablation 05/08/2025 at [place] and reports she is planned for sesame procedure 08/13/2025
- She previously did not tolerate Camzyos
- Will check proBNP, however patient does not appear to be volume overloaded. May be mildly dry as presented with hypotension and weakness
- Check echo, last from 01/2025 with results as above
- Last echo at this institution was 07/10/2024 with moderate progression of CAD in mid RCA and at origin of first diagonal branch with myocardial bridge and distal LAD. Troponin 1.7. No present chest pain. EKG sinus rhythm with left bundle branch
block. Would consider for cardiac catheterization pending results of above
- Currently on IV heparin, aspirin, Toprol, Lipitor
- Would also consider transfer to [place] as she is planned for upcoming procedure on Wednesday and to optimize in preparation for this.
- Discussed with hospitalist
Data Reviewed
-
EKG: Tracing Personally Visualized and interpreted
Medical Tests (Nuc Med, Echo etc): Report Reviewed by me
Labs: Labs Reviewed by me
Old Records: Reviewed
--- NOTE | 2025-08-08 10:10 | W.PN.HOSP.TC ---
Today's Communication/Plan
-
Workup for acute coronary syndrome
Follow urine cultures
TSH
Urine osmolarity and sodium
Assessment / Plan
Assessment / Plan
Impression:
85 years old female with history of CAD, nonischemic cardiomyopathy with LVEF 35-40%, HOCM with attempt septal ablation last week at tertiary facility presents with generalized fatigue, periodic chest pressure radiating to the neck and left upper
extremity.
Acute coronary syndrome, non-STEMI
Intermittent LBBB
Hyponatremia.
Conditions prior to admission
CAD with history of intervention to LAD and RCA.
Recovered cardiomyopathy with EF of 35-40% up to LVEF of 60% on most recent echo
HOCM
Valvular disease including mild MR/mild AR/mild TR
Essential hypertension
History of breast cancer status post lumpectomy, chemotherapy and radiation 2001
History of TBI
Sleep apnea
Fibromyalgia
Anxiety/depression.
Echo 01/18/2025
Normal left ventricular size and systolic function. No regional wall motion
abnormalities are seen. LV ejection fraction is 60% by Brush's biplane method
of discs. Left ventricular hypertrophy; septum thicker than posterior wall. (
1.3 cm). Peak LVOT gradient at rest of 14 mmHg; 109 with Valsalva and 25 with
the patient standing.
Mild mitral regurgitation.
Mild aortic regurgitation.
Mild tricuspid regurgitation. Estimated pulmonary artery pressure of 22 mmHg.
Compared to the previous echo from Jun 2024, at that time, EF was 35-40% with
distal septal and apical akinesis, and distal inferior/anterior/lateral
hypokinesis with severe MR.
Plan
Acute coronary syndrome non-STEMI
Troponin peaked at 1.7.
Patient with hypertrophic obstructive cardiomyopathy and attempt of septal alcohol ablation last week at a tertiary facility.
Has known CAD with prior intervention to LAD and RCA.
Currently chest pain-free.
Noted to be hypotensive? If hypovolemic given low oral intake.
ECG with? Known LBBB, intermittent.
Initiated on IV heparin
Continue beta-jazmin, aspirin, statin
Cardiology evaluation
Echocardiogram
Cardiology to get in touch with primary cardiology at tertiary center for additional information in terms of recent attempt septal ablation and invasive evaluation.
Trend troponin
Generalized fatigue and weakness upon presentation to
Likely multifactorial.
Afebrile and nontoxic-appearing with no complaints suggestive of infection.
Noted abnormal urinalysis, although with no urinary complaints. Urine cultures pending. Monitor closely off antibiotics
Hyponatremia
Suspect intravascular depletion given hypotension and reported low oral intake.
Update TSH
Check urine osmolarity and urine sodium
Check pro CHF BNP as a baseline
Consider gentle hydration
Anticipated Discharge: 24 - 48 hours
Subjective/Interval History
-
Date of Service: August 08, 2025
Objective Data
-
Labs:
Laboratory Results
08/08/25 08/08/25 08/08/25
02:42 05:45 10:25
WBC 9.5
Hgb 12.1
Hct 34.2 L
Plt Count 135
APTT 141.9 H Pending
Sodium 127 L
Potassium 4.6
Chloride 102
Carbon Dioxide 20 L
BUN 34 H
Creatinine 0.8
Glucose 95
Calcium 8.5
Vital Signs:
Vital Signs
Temp Pulse Resp BP Pulse Ox
97.8 F 85 18 97/46 99
08/08/25 07:34 08/08/25 08:18 08/08/25 02:36 08/08/25 08:18 08/08/25 08:16
Physical Exam
-
General: Well Developed and No Apparent Distress
HEENT: Normocephalic, Atraumatic and Moist Mucous Membranes
Respiratory: Clear to Auscultation
Cardiac: Regular Rhythm and S1/S2; Negative Murmur, Rub or Gallop
GI: Soft, Nontender, Nondistended and Normal Bowel Sounds; Negative Organomegaly
Rectal: Deferred by Provider
Musculoskeletal: No Clubbing, No Cyanosis and No Edema
Skin: Negative Rash
Neuro: Nonfocal/Grossly Intact
--- NOTE | 2025-08-08 10:37 | PTCARENOTE ---
Patient received at change of shift resting in the bed. Denies pain at this time. SR on telemetry. Oxygen saturation 99% on room air. The patient reports feeling generally weak but was able to ambulate to the chair x1 with a rolling walker. Heparin
gtt infusing at 500units/hr. Continuing to trend troponin to peak. Plan of care discussed. Call brown within reach. Care ongoing.
[2025-08-08 10:48] LABS: APTT 87.9 Sec (23.4-35.0)
[2025-08-08 10:58] LABS: TSH 0.81 uIU/ml (0.47-4.68)
[2025-08-08] MEDS: LIPITOR 40 MG PO (11:51)
[2025-08-08] MEDS: LOW STRENGTH ASPIRIN 81 MG PO (11:51)
[2025-08-08] MEDS: PROTONIX 40 MG PO (11:52)
[2025-08-08] MEDS: TOPROL XL 25 MG PO (11:52)
[2025-08-08 12:38] LABS: Troponin I 1.640 ng/ml
--- NOTE | 2025-08-08 14:05 | CM ---
spoke to pt in room, she is prev indep, lives alone in a 2 story home with a ramp to enter. she denies any dc planning needs. has a cane and a walker she uses at home. plan is for dc to home when medically stable.
[2025-08-08 17:19] LABS: APTT 73.5 Sec (23.4-35.0)
--- NOTE | 2025-08-08 18:12 | PTCARENOTE ---
Patient found out of bed without calling for assistance. The patient stated that she didn't feel well and was dizzy. The patient was assisted back to bed, BP 92/79, HR 78. Patient alert to self, place, and time. Reoriented to surroundings and call
brown use. Bed alarm now in place due to high fall risk status and the patient ambulating without calling for assistance while feeling dizzy.
[2025-08-08] MEDS: TYLENOL 650 MG PO (22:45)
--- NOTE | 2025-08-08 23:49 | PTCARENOTE ---
Received patient at change of shift. SR with a BBB on the monitor, HR in the 60s. Heparin running as per protocol. Fall risk, bed alarm in place.
2220: Pt complained of chest 'heaviness' and anxiety. BP 79/49 in LUE, retaken in RUE 84/54. EKG obtained. TIFFANY Montiel in room. 2L nasal cannula. PRN Tylenol. MAMMA LOGIST okay with systolic BP in the 80s. Call brown within reach.
[2025-08-09] VITALS (13 sets, daily range): BP systolic 82–143; BP diastolic 54–120; PULSE 65–74; O2SAT 98
[2025-08-09 03:15] LABS: Hematocrit 31.3 % (37.0-47.0); Hemoglobin 10.8 g/dL (12.0-16.0); Mean Corp Hgb Conc. 34.5 g/dL (33.0-37.0); Mean Corpuscular Volume 92.9 fL (81.0-99.0); Platelet Count 111 10^3/uL (130-400); Red Cell Dist. Width 13.3 % (11.5-14.5)
[2025-08-09 03:23] LABS: APTT 98.6 Sec (23.4-35.0)
[2025-08-09 03:32] LABS: Blood Urea Nitrogen 32 mg/dl (7-17); Calcium 8.0 mg/dl (8.4-10.2); Carbon Dioxide 21 mmol/L (22-30); Chloride 99 mmol/L (98-107); Glucose 91 mg/dl (70-99); Potassium 4.0 mmol/L (3.5-5.1); Sodium 122 mmol/L (135-145); eGFR > 60.00
--- NOTE | 2025-08-09 08:42 | W.PN.CARDCBS ---
Today's Communication / Plan
-
Complex as her presentation may represent ACS vs Takotsubo CM vs HCM however with significant change and reduction in left ventricular systolic function, wall motion abnormalities and worsening MR and TR, and elevated troponin, would consider
cardiac catheterization of left heart to evaluate her current coronary anatomy and the patency of her stents. This will be tentatively scheduled for August 10, 2025
Continue IV heparin
Continue aspirin and Toprol and Lipitor
She has recurrent severe MR.
She also had severe MR when she presented in incipient cardiogenic shock on mavacamten. This subsequently improved.
Despite LV dysfunction and severely elevated proBNP she does not appear significantly volume overloaded and her weight is lower than it was last year. Continue daily weights and to monitor her volume status.
Nephrology to eval her hyponatremia which has worsened
Dr. Preston reached out to her [place] airbrush artist, Dr. Jason Rizzo who is scheduled to perform her SESAME procedure on Wednesday August 13, 2025 but did not hear back.
Reconsider transfer once medically optimized.
Impression / Plan
-
Primary Power Plant Supervisor: Dr. RIDGE Preston and Dr. Paz at [place]
Impression:
Presentation with weakness, neck/L arm/chest discomfort
Hypotension
Elevated troponin, peak 1.76, concern for NSTEMI
HOCM s/p aborted ETOH septal ablation 05/08/25 at [place], planned for SESAME procedure 08/13/25
Recurrent CM with EF 30-35%, severe MR and mod to severe TR
Small pericardial effusion
Coronary artery disease
10/01/20 atherectomy to the LAD and diagonal bifurcation and T stenting with a 2.5/8 mm to Diagonal, 2.5/28 mm Susana Xience V LETHA in the LAD.
10/12/22 Cor angio for CP patent LAD stents and no new significant cor dz
07/10/24 Modest progression of CAD in mid RCA and at origin of 1st diag branch. 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
Hx Traumatic brain injury
she fell out of her bed and hit her head, developed hallucinations approximately 3 weeks later, found to have right subdural collection with subacute to chronic SDH at [facility] 10/2021
Hyponatremia.
Hyperlipidemia with statin intolerance
Left breast cancer status post lumpectomy, chemotherapy and radiation 2001.
Sleep apnea
Fibromyalgia
Osteoarthritis
Dyslipidemia (h/o poorly karla statin but recently tolerating atorvastatin)
Anxiety and depression
Echo 07/10/2024: EF 35 to 40%, distal septum and apex akinetic, distal inferior, distal anterior and distal lateral hypokinetic, hokum with LVOT gradients difficult to assess due to severe MR, systolic anterior motion of anterior mitral valve
leaflet with severe MR, mild AR, moderate TR, PAP 40 to 45 mmHg
ECHO 01/18/25: EF 60%, LVH with septum thicker than posterior wall, peak LVOT gradient at rest 14, 109 with Valsalva and 25 with standing, mild MR, mild AR, mild TR, PAP 22 mmHg
Echo 08/08/2025: Moderately reduced left ventricular systolic function ejection fraction is 30-35%. HCM with greater thickness of the septal wall, measuring 1.5cm. Significant hypokinesis of the mid to distal anteroseptum anterolateral wall and
entire apex. Peak/mean gradients across the left ventricular outflow tract of 43/21 mmHg respectively. Mild AR, severe MR, moderate to severe TR, small pericardial effusion. Compared to previous echo from January 2025, EF was 60% at that time with
mild MR, mild AR and mild TR.
Plan:
HPI: Complicated 85-year-old woman with hypertrophic cardiomyopathy, previously mavacamten which produced incipient cardiogenic shock and severe mitral regurgitation 2000 performed. More recently, alcohol septal ablation was planned at the
[facility] but ultimately not performed as it was felt that the septal oil separator subtended too large an area of myocardium to safely permit alcohol septal ablation. She is planned for SESAME procedure (Septal scarring along the
mid line endocardium), a form of transcatheter myomectomy scheduled for August 13 at the [facility] by Dr. Rizzo but admitted with profound weakness and left shoulder and chest discomfort which is mild. Found to have a troponin
of 1.7, initially presented with IVCD and anterior ST elevation and evolved anterolateral T wave inversions, which is more similar to her baseline tracing. Echo shows EF of 35% with severe MR and LAD distribution wall motion abnormality.
PMH: HCM, LAD atherectomy 2020 with Xience stent to mid LAD, cardiac catheterization 2023 showed moderate mid LAD and D1 disease with myocardial bridge and distal LAD, history of traumatic subdural hematoma 2021, hyperlipidemia, statin intolerance,
left breast cancer with chemoradiation 2001, sleep apnea, osteoarthritis, fibromyalgia, anxiety and depression
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
Current meds: IV heparin, aspirin 81 mg a day, atorvastatin 40 mg a day, metoprolol ER 25 mg a day, pantoprazole
She presents with LAD distribution hypokinesis with a troponin of 1.7 with known hypertrophic cardiomyopathy - by catheterization 2023 she had a patent LAD stent with a moderate mid RCA stenosis and a stenosis in a diagonal.
Complex as her presentation may represent ACS vs Takotsubo CM vs HCM however with significant change and reduction in left ventricular systolic function, wall motion abnormalities and worsening MR and TR, and elevated troponin, would consider
cardiac catheterization of left heart to evaluate her current coronary anatomy and the patency of her stents. This will be tentatively scheduled for August 10, 2025
Continue IV heparin
Continue aspirin and Toprol and Lipitor
She has recurrent severe MR.
She also had severe MR when she presented in incipient cardiogenic shock on mavacamten. This subsequently improved.
Despite LV dysfunction and severely elevated proBNP she does not appear significantly volume overloaded and her weight is lower than it was last year. Continue daily weights and to monitor her volume status.
Nephrology to eval her hyponatremia which has worsened
Dr. Preston reached out to her [place] airbrush artist, Dr. Jason Rizzo who is scheduled to perform her SESAME procedure on Wednesday August 13, 2025 but did not hear back.
Reconsider transfer once medically optimized.
Discussed with her primary airbrush artist and primary service
Progress Note - Power Plant Supervisor
Subjective
Date of Service: August 09, 2025
Patient seen and examined. No chest pain. Breathing better
Objective
Labs:
08/09/25 02:46
08/09/25 02:46
Labs
Hgb 10.8 g/dL (12.0-16.0) L 08/09/25 02:46
Hct 31.3 % (37.0-47.0) L 08/09/25 02:46
Plt Count 111 10^3/uL (130-400) L 08/09/25 02:46
APTT 98.6 Sec (23.4-35.0) H 08/09/25 02:46
Sodium 122 mmol/L (135-145) L 08/09/25 02:46
Potassium 4.0 mmol/L (3.5-5.1) 08/09/25 02:46
BUN 32 mg/dl (7-17) H 08/09/25 02:46
Creatinine 0.9 mg/dL (0.6-1.0) 08/09/25 02:46
Glucose 91 mg/dl (70-99) 08/09/25 02:46
Troponins
08/07/25 08/07/25 08/08/25
18:23 23:19 02:42
Troponin I 0.430 H* 0.729 H* D 1.200 H* D
08/08/25 08/08/25 08/08/25
05:45 08:25 11:58
Troponin I 1.700 H* D 1.760 H* 1.640 H*
Vital Signs and I&O:
Vital Signs
Temp Pulse Resp BP Pulse Ox
97.4 F 62 18 93/65 96
08/09/25 08:35 08/09/25 04:00 08/09/25 08:35 08/09/25 02:51 08/09/25 08:35
Vital Signs
Temp Pulse Resp BP Pulse Ox
97.4 F 62 18 93/65 96
08/09/25 08:35 08/09/25 04:00 08/09/25 08:35 08/09/25 02:51 08/09/25 08:35
Intake & Output
08/07/25 08/08/25 08/09/25 08/10/25
06:59 06:59 06:59 06:59
Intake Total 300 / 300
Output Total 625 / 625
Balance -325 / -325
Physical Exam
Physical Exam
General: No acute distress, AAOX3
Neck: Negative JVD
Heart: Regular, Negative S3 positive S1/S2, Negative S4, No murmur
Lungs: CTA b/l, negative wheezes/rales/rhonchi
Abd: Positive BS, NT/ND, neg rebound/rigidity/guarding
Ext: Negative cyanosis/clubbing/edema
Neuro: nonfocal
[2025-08-09] MEDS: SAMSCA 15 MG PO (10:52)
[2025-08-09] MEDS: TOPROL XL 25 MG PO (12:18)
[2025-08-09] MEDS: LIPITOR 40 MG PO (12:18)
[2025-08-09] MEDS: PROTONIX 40 MG PO (12:18)
[2025-08-09] MEDS: LOW STRENGTH ASPIRIN 81 MG PO (12:18)
--- NOTE | 2025-08-09 12:59 | W.CON.NEPH ---
Consultation
-
Date/Time Consultation Requested: 08/09/2025 11 AM
Date/Time Consultation Performed: 08/09/2025 12 PM
Requesting Provider: Dr. Shelton
Performing Provider: Dr. Childers
Reason for Consultation: Hyponatremia
Medical History
-
Chief Complaint: Hyponatremia
History of Present Illness:
This is an 85-year-old female who has hypertrophic cardiomyopathy and severe mitral regurgitation. There were plans for transcatheter myomectomy at [facility] which she has not yet had. She does have heart failure with reduced
ejection fraction and severe mitral Gertsch Tatian though not on chronic diuretic therapy. She has hyperlipidemia controlled with statin therapy. She has no known renal issues. She does have significant coronary artery disease with LAD stenting
on baby aspirin. This has been stable overall. She does not carry a history of chronic hyponatremia. She came to the emergency room because of 3days worsening weakness and left shoulder and chest discomfort. Troponin was mildly elevated with an
abnormal EKG.
Past Medical History
HOCM s/p aborted ETOH septal ablation 05/08/25 at [place], planned for SESAME procedure 08/13/25
Coronary artery disease
10/01/20 atherectomy to the LAD and diagonal bifurcation and T stenting with a 2.5/8 mm in the diagonal and 2.5/28 mm Susana Xience V drug-eluting stent in the LAD.
10/12/22 Cor angio for CP patent LAD stents and no new significant cor dz
07/10/24 Modest progression of CAD in mid RCA and at origin of 1st diag branch. 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
h/o Traumatic brain injury
she fell out of her bed and hit her head, developed hallucinations approximately 3 weeks later, found to have right subdural collection with subacute to chronic SDH at [facility] 10/2021
Hyperlipidemia with statin intolerance
Left breast cancer status post lumpectomy, chemotherapy and radiation 2001.
Sleep apnea
Fibromyalgia
Osteoarthritis
Dyslipidemia (h/o poorly karla statin but recently tolerating atorvastatin)
Anxiety and depression
Social History
Tobacco: Non-Smoker
Alcohol: None
Family History
Family History: Not Pertinent
Allergies / Home Medications
Allergy/AdvReac Type Severity Reaction Status Date / Time
aspirin Allergy Nausea / Verified 08/07/25 18:05
Vomiting
Cephalosporins Allergy Unknown Verified 08/07/25 18:05
iodine Allergy Unknown Verified 08/07/25 18:05
NSAIDS (Non-Steroidal Allergy Unknown Verified 08/07/25 18:05
Anti-Inflamma
penicillin G Allergy Nausea / Verified 08/07/25 18:05
Vomiting
Penicillins Allergy Nausea / Verified 08/07/25 18:05
Vomiting
Salicylates * Allergy Nausea / Verified 08/07/25 18:05
Vomiting
Sulfa (Sulfonamide Allergy Nausea / Verified 08/07/25 18:05
Antibiotics) Vomiting
sulfamethoxazole Allergy Nausea / Verified 08/07/25 18:05
Vomiting
trimethoprim Allergy Nausea / Verified 08/07/25 18:05
Vomiting
verapamil Allergy Shortness Verified 08/07/25 18:05
of Breath
�Medication �Instructions �Recorded �Confirmed �Type
pantoprazole 40 mg tablet,delayed 40 mg PO NOON Gastrointestinal 09/30/20 08/07/25 History
release issue
ascorbic acid (vitamin C) 250 mg 250 mg PO NOON Supplement 07/09/24 08/08/25 History
tablet (Vitamin C)
aspirin 81 mg chewable tablet 81 mg PO NOON Blood Clot 07/09/24 08/08/25 History
Prevention/Tx
atorvastatin 40 mg tablet 40 mg PO NOON High Cholesterol 07/09/24 08/07/25 History
biotin 10,000 mcg chewable tablet 10,000 mcg PO NOON Supplement 07/09/24 08/07/25 History
(Hair, Skin and Nails (biotin))
cholecalciferol (vitamin D3) 25 25 mcg PO NOON Supplement 07/09/24 08/07/25 History
mcg (1,000 unit) tablet (Vitamin
D3)
cyanocobalamin (vitamin B-12) 500 500 mcg PO NOON Supplement 07/09/24 08/07/25 History
mcg tablet
metoprolol succinate 25 mg 25 mg PO NOON heart 07/09/24 08/07/25 History
tablet,extended release 24 hr disease/condition
(Toprol XL)
Review of Systems
-
Weakness, chest discomfort left shoulder discomfort
All other systems: Negative unless noted
Physical Exam
Vital Signs
Vital Signs
Temp Pulse Resp BP Pulse Ox
97.5 F 62 18 93/65 98
08/09/25 12:07 08/09/25 04:00 08/09/25 12:07 08/09/25 02:51 08/09/25 12:07
Lab Results
WBC 8.3 10^3/uL (4.8-10.8) 08/09/25 02:46
RBC 3.37 10^6/uL (4.20-5.40) L 08/09/25 02:46
Hgb 10.8 g/dL (12.0-16.0) L 08/09/25 02:46
Hct 31.3 % (37.0-47.0) L 08/09/25 02:46
Plt Count 111 10^3/uL (130-400) L 08/09/25 02:46
Sodium 122 mmol/L (135-145) L 08/09/25 02:46
Potassium 4.0 mmol/L (3.5-5.1) 08/09/25 02:46
Chloride 99 mmol/L (98-107) 08/09/25 02:46
Carbon Dioxide 21 mmol/L (22-30) L 08/09/25 02:46
BUN 32 mg/dl (7-17) H 08/09/25 02:46
Creatinine 0.9 mg/dL (0.6-1.0) 08/09/25 02:46
eGFR > 60.00 08/09/25 02:46
Glucose 91 mg/dl (70-99) 08/09/25 02:46
Calcium 8.0 mg/dl (8.4-10.2) L 08/09/25 02:46
Yzg-T-Osgpwwaurzq Pept 02650 pg/ml 08/08/25 10:29
Albumin 4.4 g/dl (3.5-5.0) 08/07/25 18:23
Laboratory Tests
03/30/25 08/07/25 08/07/25
09:20 18:23 23:19
Sodium 136 129 L
Troponin I
Nsk-O-Ldpybrymsgu Pept
Urine Osmolality 753
Urine Sodium 44
08/08/25 08/08/25 08/08/25
10:29 11:58 15:25
Sodium
Troponin I 1.640 H*
Goj-F-Nzemrykxqtm Pept 15067
Urine Osmolality 675
Urine Sodium 17 L
Physical Exam
Patient is awake alert oriented and in no distress. Mood and affect were pleasant, insight and judgment were good. Pupils are equal round and reactive to light, extraocular movements are intact, sclera were anicteric. Hearing was normal, ears and
nose are intact. Oropharynx was clear. Neck was supple with trachea midline and no thyromegaly. Heart was regular rate and rhythm without rubs. Lower extremities without edema. Lungs were clear to auscultation bilaterally and with normal
excursion. Abdomen was soft, nontender, with normal active bowel sounds, and no hepatosplenomegaly. Skin was without rash and with normal turgor.
Data Reviewed
-
Medical Tests (Nuc Med, Echo etc): Image Personally Visualized and interpreted (EKG 08/08/2025 by my reading V paced rhythm) and Report Reviewed by me (Echocardiogram 08/08/2025 EF 30% concentric LVH, mild AR, severe MR, severe TR, moderate NH)
Labs: Labs Reviewed by me
Old Records: Reviewed
Assessment/Plan
-
Assessment
Hyponatremia
HOCM
Heart failure reduced ejection fraction
Multi valvular regurgitation
Hyponatremia
Fibromyalgia
Coronary artery disease
Plan
She does not appear to be volume overloaded at this time. She appears comfortable on room air
Aggressive diuresis not required at this time
Given worsening hyponatremia I will offer Samrosina today
Follow BMP
Possible cardiac catheterization
--- NOTE | 2025-08-09 13:26 | PTCARENOTE ---
assessment stable as documented, pt without complaints. family visiting.
[2025-08-09] MEDS: HEPARIN 25000 UNITS/250 ML IV (14:36)
--- NOTE | 2025-08-09 14:56 | W.PN.HOSP.TC ---
Today's Communication/Plan
-
nephro evaluation
40oz fluid restriction
possible LHC tomorrow
Assessment / Plan
Assessment / Plan
Impression:
85 years old female with history of CAD, nonischemic cardiomyopathy with LVEF 35-40%, HOCM with attempt septal ablation last week at tertiary facility presents with generalized fatigue, periodic chest pressure radiating to the neck and left upper
extremity.
Acute coronary syndrome, non-STEMI
Intermittent LBBB
Hyponatremia.
Conditions prior to admission
CAD with history of intervention to LAD and RCA.
Recovered cardiomyopathy with EF of 35-40% up to LVEF of 60% on most recent echo
HOCM
Valvular disease including mild MR/mild AR/mild TR
Essential hypertension
History of breast cancer status post lumpectomy, chemotherapy and radiation 2001
History of TBI
Sleep apnea
Fibromyalgia
Anxiety/depression.
Hyponatremia
Echo 01/18/2025
Normal left ventricular size and systolic function. No regional wall motion
abnormalities are seen. LV ejection fraction is 60% by Brush's biplane method
of discs. Left ventricular hypertrophy; septum thicker than posterior wall. (
1.3 cm). Peak LVOT gradient at rest of 14 mmHg; 109 with Valsalva and 25 with
the patient standing.
Mild mitral regurgitation.
Mild aortic regurgitation.
Mild tricuspid regurgitation. Estimated pulmonary artery pressure of 22 mmHg.
Compared to the previous echo from Jun 2024, at that time, EF was 35-40% with
distal septal and apical akinesis, and distal inferior/anterior/lateral
hypokinesis with severe MR.
Plan
Acute coronary syndrome non-STEMI
Troponin peaked at 1.7.
Patient with hypertrophic obstructive cardiomyopathy and attempt of septal alcohol ablation last week at a tertiary facility.
Has known CAD with prior intervention to LAD and RCA.
Currently chest pain-free.
Noted to be hypotensive? If hypovolemic given low oral intake.
ECG with? Known LBBB, intermittent.
Initiated on IV heparin
Continue beta-jazmin, aspirin, statin
Cardiology considering to have elective left heart catheterization tomorrow.
Patient is planned to having septal ablation procedure at [facility] on Wednesday, cardio have contacted primary oracle ebs consultant from [facility] awaiting further response
Generalized fatigue and weakness upon presentation to
Likely multifactorial.
Afebrile and nontoxic-appearing with no complaints suggestive of infection.
Noted abnormal urinalysis, although with no urinary complaints. Urine cultures pending. Monitor closely off antibiotics
Hyponatremia - continues to worsen
Na of 122 today.
40 oz fluid restriction added
Nephrology consulted and recommended dose of semsca
Anticipated Discharge: 24 - 48 hours
Subjective/Interval History
-
Date of Service: August 09, 2025
Denies having any issues overnight
reported some dizziness/nausea
Objective Data
-
Labs:
Laboratory Results
08/09/25
02:46
WBC 8.3
Hgb 10.8 L
Hct 31.3 L
Plt Count 111 L
APTT 98.6 H
Sodium 122 L
Potassium 4.0
Chloride 99
Carbon Dioxide 21 L
BUN 32 H
Creatinine 0.9
Glucose 91
Calcium 8.0 L
Vital Signs:
Vital Signs
Temp Pulse Resp BP Pulse Ox
97.5 F 62 18 93/65 98
08/09/25 12:07 08/09/25 04:00 08/09/25 12:07 08/09/25 02:51 08/09/25 12:07
I&O
08/08/25 08/09/25 08/10/25
06:59 06:59 06:59
Intake Total 300 / 300
Output Total 625 / 625
Balance -325 / -325
Review of Systems
-
Respiratory: Reports No Symptoms
Cardiac: Reports No Symptoms
Abdomen/GI: Reports No Symptoms
Physical Exam
-
General: Comfortable
HEENT: Negative Oxygen
Respiratory: Clear to Auscultation
Cardiac: Regular Rhythm and S1/S2; Negative Murmur or Rub
GI: Soft, Nontender and Nondistended
Musculoskeletal: No Edema
Neuro: Awake, Alert, Oriented, No Motor Deficits and Nonfocal/Grossly Intact
Psych: Calm
--- NOTE | 2025-08-09 20:53 | PTCARENOTE ---
Received patient at change of shift. SR with a on the monitor, HR in the 70s. Heparin running as per protocol, see documentation. No complaints from pt at this time, call brown within reach.
[2025-08-10] VITALS (9 sets, daily range): BP systolic 100–144; BP diastolic 68–91; PULSE 67; O2SAT 100
[2025-08-10 02:24] LABS: APTT 91.3 Sec (23.4-35.0)
[2025-08-10 02:50] LABS: Blood Urea Nitrogen 27 mg/dl (7-17); Calcium 9.0 mg/dl (8.4-10.2); Carbon Dioxide 25 mmol/L (22-30); Chloride 108 mmol/L (98-107); Glucose 88 mg/dl (70-99); Potassium 4.4 mmol/L (3.5-5.1); Sodium 136 mmol/L (135-145); eGFR 44.36
[2025-08-10 03:47] LABS: Hematocrit 37.2 % (37.0-47.0); Hemoglobin 12.8 g/dL (12.0-16.0); Mean Corp Hgb Conc. 34.4 g/dL (33.0-37.0); Mean Corpuscular Volume 93.9 fL (81.0-99.0); Platelet Count 125 10^3/uL (130-400); Red Cell Dist. Width 13.3 % (11.5-14.5)
--- NOTE | 2025-08-10 09:21 | W.PN.HOSP.TC ---
Today's Communication/Plan
-
f/u na/cr
random bladder scan
[facility] later today per cards discussion
Assessment / Plan
Assessment / Plan
Impression:
85 years old female with history of CAD, nonischemic cardiomyopathy with LVEF 35-40%, HOCM with attempt septal ablation last week at tertiary facility presents with generalized fatigue, periodic chest pressure radiating to the neck and left upper
extremity.
Acute coronary syndrome, non-STEMI
Intermittent LBBB
Hyponatremia.
Conditions prior to admission
CAD with history of intervention to LAD and RCA.
Recovered cardiomyopathy with EF of 35-40% up to LVEF of 60% on most recent echo
HOCM
Valvular disease including mild MR/mild AR/mild TR
TYSHAWN
Essential hypertension
History of breast cancer status post lumpectomy, chemotherapy and radiation 2001
History of TBI
Sleep apnea
Fibromyalgia
Anxiety/depression.
Hyponatremia
Echo 01/18/2025
Normal left ventricular size and systolic function. No regional wall motion
abnormalities are seen. LV ejection fraction is 60% by Brush's biplane method
of discs. Left ventricular hypertrophy; septum thicker than posterior wall. (
1.3 cm). Peak LVOT gradient at rest of 14 mmHg; 109 with Valsalva and 25 with
the patient standing.
Mild mitral regurgitation.
Mild aortic regurgitation.
Mild tricuspid regurgitation. Estimated pulmonary artery pressure of 22 mmHg.
Compared to the previous echo from Jun 2024, at that time, EF was 35-40% with
distal septal and apical akinesis, and distal inferior/anterior/lateral
hypokinesis with severe MR.
Plan
Acute coronary syndrome non-STEMI
Troponin peaked at 1.7.
Patient with hypertrophic obstructive cardiomyopathy and attempt of septal alcohol ablation last week at a tertiary facility.
Has known CAD with prior intervention to LAD and RCA.
Currently chest pain-free.
Noted to be hypotensive? If hypovolemic given low oral intake.
ECG with? Known LBBB, intermittent.
Initiated on IV heparin
Continue beta-jazmin, aspirin, statin
Cardiology considering to have elective left heart catheterization tomorrow.
Patient is planned to having septal ablation procedure at [facility] on Wednesday, cardio have contacted primary cement mixer from [facility] awaiting further response
Generalized fatigue and weakness upon presentation to
Likely multifactorial.
Afebrile and nontoxic-appearing with no complaints suggestive of infection.
Noted abnormal urinalysis, although with no urinary complaints. Urine cultures pending. Monitor closely off antibiotics
Hyponatremia - continues to worsen
Na improved to 136 from 122 with tolvaptan 15mg
40 oz fluid restriction added
renal function bumped to 1.2 from baseline of 0.8
not hypotensive/did not get any nephrotoxic med/did not get contrast
check bladder scan to r/o any retention issue
due for [facility] today, will need to monitor renal function post cath
Full code
Anticipated Discharge: 24 - 48 hours
Subjective/Interval History
-
Date of Service: August 10, 2025
no new complains overnight
had some right sided chest pain without associated nausea/sob/diaphoresis, patient was resting at that time
Objective Data
-
Labs:
Laboratory Results
08/10/25
01:55
WBC 6.8
Hgb 12.8
Hct 37.2
Plt Count 125 L
APTT 91.3 H
Sodium 136 D
Potassium 4.4
Chloride 108 H
Carbon Dioxide 25
BUN 27 H
Creatinine 1.2 H
Glucose 88
Calcium 9.0
Vital Signs:
Vital Signs
Temp Pulse Resp BP Pulse Ox
98.1 F 68 18 122/77 99
08/10/25 08:34 08/10/25 08:34 08/10/25 08:34 08/10/25 08:34 08/10/25 01:45
I&O
08/09/25 08/10/25 08/11/25
06:59 06:59 06:59
Intake Total 300 / 300
Output Total 625 / 625
Balance -325 / -325
Review of Systems
-
Respiratory: Reports No Symptoms
Cardiac: Reports Chest Pain; Denies Diaphoresis
Abdomen/GI: Reports No Symptoms
Physical Exam
-
General: Comfortable
HEENT: Negative Oxygen
Respiratory: Clear to Auscultation
Cardiac: Regular Rhythm and S1/S2; Negative Murmur or Rub
GI: Soft, Nontender and Nondistended
Musculoskeletal: No Edema
Neuro: Awake, Alert, Oriented, No Motor Deficits and Nonfocal/Grossly Intact
Psych: Calm
--- NOTE | 2025-08-10 11:12 | W.PN.NEPH.PH ---
Today's Communication / Plan
-
Follow BMP
Assessment/Plan
-
Assessment
Hyponatremia
HOCM
Heart failure reduced ejection fraction
Multi valvular regurgitation
Hyponatremia
Fibromyalgia
Coronary artery disease
Plan
She does not appear to be volume overloaded at this time. She appears comfortable on room air
Aggressive diuresis not required at this time
Follow BMP
Possible cardiac catheterization will offer bicarb and IV fluids with catheterization. Given her weight she will receive less than 500 cc.
-
-
Date of Service: August 10, 2025
CC / HPI / ROS
-
Chief Complaint:
Hyponatremia
History of Present Illness:
Sodium up to 136 after [place]
Weights down
Creatinine up at 1.2 from 0.9
Troponin slightly lower 1.64
BP stable
Review of Systems:
No chest pain or shortness of breath
Labs
-
Labs:
WBC 6.8 10^3/uL (4.8-10.8) 08/10/25 01:55
RBC 3.96 10^6/uL (4.20-5.40) L 08/10/25 01:55
Hgb 12.8 g/dL (12.0-16.0) 08/10/25 01:55
Hct 37.2 % (37.0-47.0) 08/10/25 01:55
Plt Count 125 10^3/uL (130-400) L 08/10/25 01:55
Sodium 136 mmol/L (135-145) D 08/10/25 01:55
Potassium 4.4 mmol/L (3.5-5.1) 08/10/25 01:55
Chloride 108 mmol/L (98-107) H 08/10/25 01:55
Carbon Dioxide 25 mmol/L (22-30) 08/10/25 01:55
BUN 27 mg/dl (7-17) H 08/10/25 01:55
Creatinine 1.2 mg/dL (0.6-1.0) H 08/10/25 01:55
eGFR 44.36 08/10/25 01:55
Glucose 88 mg/dl (70-99) 08/10/25 01:55
Calcium 9.0 mg/dl (8.4-10.2) 08/10/25 01:55
Vel-P-Cpivsyroplp Pept 57966 pg/ml 08/08/25 10:29
Albumin 4.4 g/dl (3.5-5.0) 08/07/25 18:23
Physical Exam
-
Vital Signs:
Vital Signs
Temp Pulse Resp BP Pulse Ox
97.7 F 65 16 122/77 99
08/10/25 11:08 08/10/25 11:08 08/10/25 11:08 08/10/25 08:34 08/10/25 11:08
Cardiovascular:: Regular rate and rhythm
Respiratory:: Bilateral: Coarse
Lung Excursion:: Normal
Abdomen:: Nontender and Soft
Bowel Sounds:: Normal
Extremity Edema:: None: Bilateral:
--- NOTE | 2025-08-10 11:24 | CM ---
Reviewed chart. Met with Mrs. Mendoza to review discharge plans. She states she is feeling much better today. She states prior to admission she resides alone in a two story home with a ramp to enter. She states prior to admission she ambulates
with a walker when outside getting the mail. She states she is independent with adls. She states she has a walker and single point cane at home. She states she has a prescription plan. Will need to see her current functional level to see if she
will have any skilled care needs. Medical work-up in progress. The discharge plan is to return home when medically stable. .
[2025-08-10] MEDS: LIPITOR 40 MG PO (12:02)
[2025-08-10] MEDS: TOPROL XL 25 MG PO ×2 (12:02→20:39)
[2025-08-10] MEDS: LOW STRENGTH ASPIRIN 81 MG PO (12:02)
[2025-08-10] MEDS: PROTONIX 40 MG PO (12:03)
[2025-08-10] MEDS: MAGNESIUM OXIDE 400 MG PO (13:22)
--- NOTE | 2025-08-10 13:26 | W.PN.CARDCBS ---
Addendum entered and electronically signed by Sumi Pillai MD 08/11/25 00:02:
I saw and examined the patient.
The Clean Up Worker's note was reviewed and I agree with the note.
Comment: Patient was referred for LHC in setting for mild NSTEMI. No current CP. Patient evaluated at bedside wiht son there.
TYSHAWN noted. No SOB. She tells me she's had failed recent septal ablation in April and has another procedure scheduled on Wednesday but we havent been able to verify these records.
Vitals and labs reviewed. Creat increased from 0.9 to 1.2. Awake A+Ox 3, RR, normal S1 and S2. older female, frail, CTAB, Abd, soft, NT, ND, +BS
warm ext. No edema
Reccs:
1. After extensive discussion with patient and son at beside, given risk for JEANNE with TYSHAWN recently, jewel at 85yo, in shared decision making fashion, plan to delay cath to next wek for now until renal fxn fully recovered.
2. Cont medical management.
3. Recheck out to Dr. Deepak Sheikh at [place] regarding plan and assess if pt had recent full coronary angiogram already, cant tell for sure based on records.
4. Defere to nephrology in regard to medication changes. Appreciate input. Avoid nephrotoxins.
5. Discussed with pt, famiyl at bedside, nurisng and primary team.
Sumi Pillai MD, [facility], [facility]
[id number]
Original Note:
Today's Communication / Plan
-
N.p.o. for left heart cath
Impression / Plan
-
Primary Screen Cleaner: Dr. RIDGE Preston and Dr. Paz at [place]
Impression:
Presentation with weakness, neck/L arm/chest discomfort
Hypotension
Elevated troponin, peak 1.76, concern for NSTEMI
HOCM s/p aborted ETOH septal ablation 05/08/25 at [place], planned for SESAME procedure 08/13/25
Recurrent CM this admission with EF 30-35%, severe MR and mod to severe TR on 08/08/2025 echo
Small pericardial effusion
Coronary artery disease
10/01/20 atherectomy to the LAD and diagonal bifurcation and T stenting with a 2.5/8 mm to Diagonal, 2.5/28 mm Susana Xience V LETHA in the LAD.
10/12/22 Cor angio for CP patent LAD stents and no new significant cor dz
07/10/24 Modest progression of CAD in mid RCA and at origin of 1st diag branch. 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
Hx Traumatic brain injury
she fell out of her bed and hit her head, developed hallucinations approximately 3 weeks later, found to have right subdural collection with subacute to chronic SDH at [facility] 10/2021
Hyponatremia.
Hyperlipidemia with statin intolerance
Left breast cancer status post lumpectomy, chemotherapy and radiation 2001.
Sleep apnea
Fibromyalgia
Osteoarthritis
Dyslipidemia (h/o poorly karla statin but recently tolerating atorvastatin)
Anxiety and depression
Echo 07/10/2024: EF 35 to 40%, distal septum and apex akinetic, distal inferior, distal anterior and distal lateral hypokinetic, hokum with LVOT gradients difficult to assess due to severe MR, systolic anterior motion of anterior mitral valve
leaflet with severe MR, mild AR, moderate TR, PAP 40 to 45 mmHg
ECHO 01/18/25: EF 60%, LVH with septum thicker than posterior wall, peak LVOT gradient at rest 14, 109 with Valsalva and 25 with standing, mild MR, mild AR, mild TR, PAP 22 mmHg
Echo 08/08/2025: Moderately reduced left ventricular systolic function ejection fraction is 30-35%. HCM with greater thickness of the septal wall, measuring 1.5cm. Significant hypokinesis of the mid to distal anteroseptum anterolateral wall and
entire apex. Peak/mean gradients across the left ventricular outflow tract of 43/21 mmHg respectively. Mild AR, severe MR, moderate to severe TR, small pericardial effusion. Compared to previous echo from January 2025, EF was 60% at that time with
mild MR, mild AR and mild TR.
Plan:
HPI: Complicated 85-year-old woman with hypertrophic cardiomyopathy, previously mavacamten which produced incipient cardiogenic shock and severe mitral regurgitation 2000 performed. More recently, alcohol septal ablation was planned at the
[facility] but ultimately not performed as it was felt that the septal child welfare manager subtended too large an area of myocardium to safely permit alcohol septal ablation. She is planned for SESAME procedure (Septal scarring along the
mid line endocardium), a form of transcatheter myomectomy scheduled for August 13 at the [facility] by Dr. Rizzo but admitted with profound weakness and left shoulder and chest discomfort which is mild. Found to have a troponin
of 1.7, initially presented with IVCD and anterior ST elevation and evolved anterolateral T wave inversions, which is more similar to her baseline tracing. Echo this admission 08/08 shows EF of 35% with severe MR and LAD distribution wall motion
abnormality. Last echo 01/2025 with EF 60%
PMH: HCM, LAD atherectomy 2020 with Xience stent to mid LAD, cardiac catheterization 2023 showed moderate mid LAD and D1 disease with myocardial bridge and distal LAD, history of traumatic subdural hematoma 2021, hyperlipidemia, statin intolerance,
left breast cancer with chemoradiation 2001, sleep apnea, osteoarthritis, fibromyalgia, anxiety and depression
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
Current meds: IV heparin, aspirin 81 mg a day, atorvastatin 40 mg a day, metoprolol ER 25 mg a day, pantoprazole
She presents with LAD distribution hypokinesis with a troponin of 1.7 with known hypertrophic cardiomyopathy - by catheterization 2023 she had a patent LAD stent with a moderate mid RCA stenosis and a stenosis in a diagonal.
Complex patient as her presentation may represent ACS vs Takotsubo CM vs HCM however with significant change and reduction in left ventricular systolic function, wall motion abnormalities and worsening MR and TR, and elevated troponin, [facility] has been
advised to evaluate her current coronary anatomy and the patency of her stents, scheduled for today, August 10, 2025
Continue IV heparin
Continue aspirin and Toprol and Lipitor
She has aspirin listed as an allergy on her chart. I reviewed this with her and she reports nausea/upset stomach if she takes ASA that is not coated. She has been able to tolerate a daily coated aspirin without nausea or other side effect.
There was also concern for contrast allergy which I also discussed with patient and she denies this. She had a left heart cath here 07/12/2024 which she tolerated with no reaction to contrast.
She has recurrent severe MR.
She also had severe MR when she presented in incipient cardiogenic shock on mavacamten. This subsequently improved.
Despite LV dysfunction and severely elevated proBNP of 26,400, she does not appear significantly volume overloaded and her weight is lower than it was last year, and stable/downtrending this admission.
Continue daily weights and to monitor her volume status.
She is not on a diuretic.
Nephrology to eval her hyponatremia which has worsened.
creatinine uptrended to 1.2 08/10/25, has been 0.8-1.0. Repeating today prior to [facility]
Dr. Preston reached out to her [place] fish protector, Dr. Jason Rizzo who is scheduled to perform her SESAME procedure on Wednesday August 13, 2025 but did not hear back.
Reconsider transfer once medically optimized.
Discussed with her primary fish protector and primary service
Progress Note - Screen Cleaner
Subjective
Date of Service: August 10, 2025
No recurrent chest, neck, or arm discomfort
Objective
Labs:
08/10/25 01:55
Labs
Hgb 12.8 g/dL (12.0-16.0) 08/10/25 01:55
Hct 37.2 % (37.0-47.0) 08/10/25 01:55
Plt Count 125 10^3/uL (130-400) L 08/10/25 01:55
APTT 91.3 Sec (23.4-35.0) H 08/10/25 01:55
Sodium 136 mmol/L (135-145) D 08/10/25 01:55
Potassium 4.4 mmol/L (3.5-5.1) 08/10/25 01:55
BUN 27 mg/dl (7-17) H 08/10/25 01:55
Creatinine 1.2 mg/dL (0.6-1.0) H 08/10/25 01:55
Glucose 88 mg/dl (70-99) 08/10/25 01:55
Troponins
08/07/25 08/07/25 08/08/25
18:23 23:19 02:42
Troponin I 0.430 H* 0.729 H* D 1.200 H* D
08/08/25 08/08/25 08/08/25
05:45 08:25 11:58
Troponin I 1.700 H* D 1.760 H* 1.640 H*
Vital Signs and I&O:
Vital Signs
Temp Pulse Resp BP Pulse Ox
97.7 F 63 16 123/71 99
08/10/25 11:08 08/10/25 12:02 08/10/25 11:08 08/10/25 12:02 08/10/25 11:08
Vital Signs
Temp Pulse Resp BP Pulse Ox
97.7 F 63 16 123/71 99
08/10/25 11:08 08/10/25 12:02 08/10/25 11:08 08/10/25 12:02 08/10/25 11:08
Intake & Output
08/08/25 08/09/25 08/10/25 08/11/25
06:59 06:59 06:59 06:59
Intake Total 300 / 300
Output Total 625 / 625
Balance -325 / -325
Physical Exam
Physical Exam
GEN: No distress, awake, Ox3
HEENT: supple, anicteric, mmm
LUNGS: CTA, no wheezes/rales
CV: Reg, S1/S2, 2/6 syst murmur
ABD: soft, BS+, NT/ND
EXT: No edema
NEURO: Gross non-focal
SKIN: No rash
[2025-08-10 14:08] LABS: Blood Urea Nitrogen 24 mg/dl (7-17); Calcium 8.7 mg/dl (8.4-10.2); Carbon Dioxide 28 mmol/L (22-30); Chloride 107 mmol/L (98-107); Glucose 88 mg/dl (70-99); Potassium 4.2 mmol/L (3.5-5.1); Sodium 136 mmol/L (135-145); eGFR 55.21
--- NOTE | 2025-08-10 15:33 | W.PN.UPDATE ---
Update Note
Progress Note Update
I called [place], [phone] and spoke with cardiology health and safety representative. Left message that would like to discuss patient's case with Dr. Sullivan as patient is under the impression that she has Sesame procedure at [place] on Wednesday. Per health and safety representative
at [place], patient is not scheduled for any procedures on Wednesday. She has an office visit with Dr. Sheikh (security supervisor) at [place] on 08/20/2025.
Discussed with Dr. Pillai and she will reach out to Dr. Sheikh to discuss case.
--- NOTE | 2025-08-10 19:29 | PTCARENOTE ---
~[id number]: Handoff report received from nightshift RN. Pt AOx4, forgetful at times. Bed alarm and chair alarm in place for safety. NSR BBB 60s, SBP 120s, RA 98%. Patient denies pain at this time. OOB to bathroom and chair with Ax1. Heparin gtt
infusing @ 500 units/hr. Pt NPO to go to CCL today. TT sent to laborer egg producing farm charge about patient allergies to ASA and iodine to see if premedication is needed prior to procedure, message forwarded to cardiology and HEALTH ADMINISTRATION TEACHER, no new orders at this time. Per
CCL charge, patient does not need premedication prior to procedure for her allergies. All needs met at this time, call brown within reach.
~[id number]: Random bladder scan completed per physician order.
~[id number]: Per patient, she takes her metoprolol BID and asked about her vitamins as well, metoprolol adjusted in home med list, hospitalist made aware, no new orders at this time. Patient also stated that she does not have a ride to her ablation
at [place] on Wednesday and is wondering how she will get there, message sent to .
~[id number]: BMP sent to lab for processing.
~[id number]: BMP resulted, results shared with Dr Shelton and Dr Pillai.
~[id number]: Dr. Pillai in to speak with patient about plan for CCL and risk of TYSHAWN given Cr result of 1.0. Patient does not want to go to CCL today, sounds like posscabe plan for CCL on Wednesday.
~[id number]: Patient OOB in chair. VSS. Pt does not c/o pain at this time. Heparin gtt infusing. All needs met at this time, call brown within reach. Handoff report given to nightsallisonft RN.
[2025-08-11] VITALS (7 sets, daily range): BP systolic 114–140; BP diastolic 64–83
[2025-08-11 04:28] LABS: Hematocrit 36.3 % (37.0-47.0); Hemoglobin 12.5 g/dL (12.0-16.0); Mean Corp Hgb Conc. 34.4 g/dL (33.0-37.0); Mean Corpuscular Volume 95.0 fL (81.0-99.0); Platelet Count 120 10^3/uL (130-400); Red Cell Dist. Width 13.3 % (11.5-14.5)
[2025-08-11 04:31] LABS: APTT 92.2 Sec (23.4-35.0)
[2025-08-11 04:45] LABS: Blood Urea Nitrogen 29 mg/dl (7-17); Calcium 8.7 mg/dl (8.4-10.2); Carbon Dioxide 25 mmol/L (22-30); Chloride 106 mmol/L (98-107); Glucose 81 mg/dl (70-99); Potassium 4.2 mmol/L (3.5-5.1); Sodium 135 mmol/L (135-145); eGFR > 60.00
--- NOTE | 2025-08-11 07:13 | PTCARENOTE ---
Pt NSR on monitor, VSS. pt denies pain or SOB. Hepatin gtt per protocol. Pt ambulates with x 1 assist, Safety measures in place
--- NOTE | 2025-08-11 08:49 | W.PN.CARDCBS ---
Addendum entered and electronically signed by Elliott Edwards DO 08/11/25 09:50:
I saw and examined the patient.
The Ore Puncher's note was reviewed and I agree with the note.
Comment:
Initial presentation with NSTEMI. Patient without any chest pain, shortness of breath, weakness
Creatinine improving at 1.0 today. Monitor renal function, avoid nephrotoxic agents
Dr. Pillai reached out to [facility], Dr. Sheikh, for further discussion regarding upcoming sesame procedure, awaiting response
Continue to monitor on telemetry
Plan left heart catheterization on 08/13/2025, n.p.o. after midnight on Wednesday
Original Note:
Today's Communication / Plan
-
Left heart cath on Wednesday
Avoid nephrotoxins
Impression / Plan
-
Primary Correctional Supply Supervisor: Dr. RIDGE Preston and Dr. Paz at [place]
Impression:
Presentation with weakness, neck/L arm/chest discomfort
Hypotension
Elevated troponin, peak 1.76, concern for NSTEMI
HOCM s/p aborted ETOH septal ablation 05/08/25 at [place], planned for SESAME procedure at [place], has office visit with edge baster on 08/20/2025
Recurrent CM this admission with EF 30-35%, severe MR and mod to severe TR on 08/08/2025 echo
Small pericardial effusion
Coronary artery disease
10/01/20 atherectomy to the LAD and diagonal bifurcation and T stenting with a 2.5/8 mm to Diagonal, 2.5/28 mm Susana Xience V LETHA in the LAD.
10/12/22 Cor angio for CP patent LAD stents and no new significant cor dz
07/10/24 Modest progression of CAD in mid RCA and at origin of 1st diag branch. 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
Hx Traumatic brain injury
she fell out of her bed and hit her head, developed hallucinations approximately 3 weeks later, found to have right subdural collection with subacute to chronic SDH at [facility] 10/2021
Hyponatremia.
Hyperlipidemia with statin intolerance
Left breast cancer status post lumpectomy, chemotherapy and radiation 2001.
Sleep apnea
Fibromyalgia
Osteoarthritis
Dyslipidemia (h/o poorly karla statin but recently tolerating atorvastatin)
Anxiety and depression
Echo 07/10/2024: EF 35 to 40%, distal septum and apex akinetic, distal inferior, distal anterior and distal lateral hypokinetic, hokum with LVOT gradients difficult to assess due to severe MR, systolic anterior motion of anterior mitral valve
leaflet with severe MR, mild AR, moderate TR, PAP 40 to 45 mmHg
ECHO 01/18/25: EF 60%, LVH with septum thicker than posterior wall, peak LVOT gradient at rest 14, 109 with Valsalva and 25 with standing, mild MR, mild AR, mild TR, PAP 22 mmHg
Echo 08/08/2025: Moderately reduced left ventricular systolic function ejection fraction is 30-35%. HCM with greater thickness of the septal wall, measuring 1.5cm. Significant hypokinesis of the mid to distal anteroseptum anterolateral wall and
entire apex. Peak/mean gradients across the left ventricular outflow tract of 43/21 mmHg respectively. Mild AR, severe MR, moderate to severe TR, small pericardial effusion. Compared to previous echo from January 2025, EF was 60% at that time with
mild MR, mild AR and mild TR.
Plan:
HPI: Complicated 85-year-old woman with hypertrophic cardiomyopathy, previously mavacamten which produced incipient cardiogenic shock and severe mitral regurgitation 2000 performed. More recently, alcohol septal ablation was planned at the
[facility] but ultimately not performed as it was felt that the septal obstetrics nurse subtended too large an area of myocardium to safely permit alcohol septal ablation. There is consideration for SESAME procedure (Septal scarring
along the mid line endocardium), a form of transcatheter myomectomy at the [facility] by Dr. Sheikh/ Dr Rizzo. She has appointment with Dr Sheikh to discuss this on 08/20/2025.
Pt admitted to 08/07/25 with profound weakness and left shoulder and chest discomfort which is mild. Troponin of 1.7, initially presented with IVCD and anterior ST elevation and evolved anterolateral T wave inversions, which is more similar to
her baseline tracing. Echo this admission 08/08 shows EF of 35% with severe MR and LAD distribution wall motion abnormality. Last echo 01/2025 with EF 60%
PMH: HCM, LAD atherectomy 2020 with Xience stent to mid LAD, cardiac catheterization 2023 showed moderate mid LAD and D1 disease with myocardial bridge and distal LAD, history of traumatic subdural hematoma 2021, hyperlipidemia, statin intolerance,
left breast cancer with chemoradiation 2001, sleep apnea, osteoarthritis, fibromyalgia, anxiety and depression
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
Current meds: IV heparin, aspirin 81 mg a day, atorvastatin 40 mg a day, metoprolol ER 25 mg a day, pantoprazole
She presents with LAD distribution hypokinesis with a troponin of 1.7 with known hypertrophic cardiomyopathy - by catheterization 2023 she had a patent LAD stent with a moderate mid RCA stenosis and a stenosis in a diagonal.
Complex patient as her presentation may represent ACS vs Takotsubo CM vs HCM however with significant change and reduction in left ventricular systolic function, wall motion abnormalities and worsening MR and TR, and elevated troponin, [facility] has been
advised to evaluate her current coronary anatomy and the patency of her stents, initially scheduled for 08/10/2025 but postponed due to TYSHAWN with creatinine bumped to 1.2. Left heart cath postponed to 08/13/2025
Continue IV heparin
Continue aspirin and Toprol and Lipitor
She has aspirin listed as an allergy on her chart. I reviewed this with her and she reports nausea/upset stomach if she takes ASA that is not coated. She has been able to tolerate a daily coated aspirin without nausea or other side effect.
There was also concern for contrast allergy which I also discussed with patient and she denies this. She had a left heart cath here 07/12/2024 which she tolerated with no reaction to contrast.
No recurrent CP.
She has recurrent severe MR.
She also had severe MR when she presented in incipient cardiogenic shock on mavacamten. This subsequently improved.
Despite LV dysfunction and severely elevated proBNP of 26,400, she does not appear significantly volume overloaded and her weight is lower than it was last year, and stable/downtrending this admission.
Continue daily weights and to monitor her volume status.
She is not on a diuretic and would hold diuretics/nephrotoxins given TYSHAWN and upcoming need for cardiac catheterization
appreciate nephrology to eval her hyponatremia which has worsened.
creatinine uptrended to 1.2 08/10/25, back down to 0.9, 08/11.
Dr. Preston reached out to her [place] hand tool lapper, Dr. Jason Rizzo earlier this week and Dr Pillai tried to contact Dr. Sheikh yesterday. Await callback from both. I spoke with Dr. Rizzo's nurse 08/11 and confirmed that Sesame procedure is
not scheduled at this point but that patient has an appointment on 08/20/[address] Sheikh to discuss procedure
There was initially consideration for transfer to [place] because we thought her sesame procedure was scheduled for 08/13/2025 but now that we have clarified that she is not getting the procedure on 08/13 plan to proceed with left heart cath at
[place].
Telemetry personally reviewed: Normal sinus rhythm 50s to 80s
Progress Note - Correctional Supply Supervisor
Subjective
Date of Service: August 11, 2025
Feels well, no chest pain or shortness of breath
Objective
Labs:
08/11/25 03:43
08/11/25 03:43
Labs
Hgb 12.5 g/dL (12.0-16.0) 08/11/25 03:43
Hct 36.3 % (37.0-47.0) L 08/11/25 03:43
Plt Count 120 10^3/uL (130-400) L 08/11/25 03:43
APTT 92.2 Sec (23.4-35.0) H 08/11/25 03:43
Sodium 135 mmol/L (135-145) 08/11/25 03:43
Potassium 4.2 mmol/L (3.5-5.1) 08/11/25 03:43
BUN 29 mg/dl (7-17) H 08/11/25 03:43
Creatinine 0.9 mg/dL (0.6-1.0) 08/11/25 03:43
Glucose 81 mg/dl (70-99) 08/11/25 03:43
Troponins
08/08/25 08/08/25
08:25 11:58
Troponin I 1.760 H* 1.640 H*
Vital Signs and I&O:
Vital Signs
Temp Pulse Resp BP Pulse Ox
98.2 F 55 18 139/78 99
08/11/25 07:22 08/11/25 06:00 08/11/25 07:22 08/11/25 03:33 08/11/25 07:22
Vital Signs
Temp Pulse Resp BP Pulse Ox
98.2 F 55 18 139/78 99
08/11/25 07:22 08/11/25 06:00 08/11/25 07:22 08/11/25 03:33 08/11/25 07:22
Intake & Output
08/09/25 08/10/25 08/11/25 08/12/25
06:59 06:59 06:59 06:59
Intake Total 300 / 300 590 / 590
Output Total 625 / 625 715 / 715
Balance -325 / -325 -125 / -125
Physical Exam
Physical Exam
GEN: No distress, awake, Ox3
HEENT: supple, anicteric, mmm
LUNGS: CTA, no wheezes/rales
CV: Reg, S1/S2, 2/6 syst LSB
ABD: soft, BS+, NT/ND
EXT: No edema
NEURO: Gross non-focal
SKIN: No rash
[2025-08-11] MEDS: MAGNESIUM OXIDE 400 MG PO (08:52)
[2025-08-11] MEDS: TOPROL XL 25 MG PO ×2 (08:52→20:38)
--- NOTE | 2025-08-11 08:57 | PTCARENOTE ---
pt aaox3. states no pain or sob. says she feels stronger today. heparin gtt running as ordered.
[2025-08-11] MEDS: LOW STRENGTH ASPIRIN 81 MG PO (11:31)
[2025-08-11] MEDS: LIPITOR 40 MG PO (11:31)
[2025-08-11] MEDS: PROTONIX 40 MG PO (11:31)
--- NOTE | 2025-08-11 11:45 | W.PN.NEPH.PH ---
Today's Communication / Plan
-
s/o
Assessment/Plan
-
Assessment
Hyponatremia
HOCM
Heart failure reduced ejection fraction
Multi valvular regurgitation
Hyponatremia
Fibromyalgia
Coronary artery disease
Plan
Follow BMP
will sign off
Possible cardiac catheterization Wednesday, would offer bicarb and IV fluids with catheterization. Given her weight she will receive less than 500 cc.
-
-
Date of Service: August 11, 2025
CC / HPI / ROS
-
Chief Complaint:
Hyponatremia
History of Present Illness:
Sodium up to 135 stable
Creatinine back down to 0.9
BP stable
Review of Systems:
No chest pain or shortness of breath
Labs
-
Labs:
WBC 6.9 10^3/uL (4.8-10.8) 08/11/25 03:43
RBC 3.82 10^6/uL (4.20-5.40) L 08/11/25 03:43
Hgb 12.5 g/dL (12.0-16.0) 08/11/25 03:43
Hct 36.3 % (37.0-47.0) L 08/11/25 03:43
Plt Count 120 10^3/uL (130-400) L 08/11/25 03:43
Sodium 135 mmol/L (135-145) 08/11/25 03:43
Potassium 4.2 mmol/L (3.5-5.1) 08/11/25 03:43
Chloride 106 mmol/L (98-107) 08/11/25 03:43
Carbon Dioxide 25 mmol/L (22-30) 08/11/25 03:43
BUN 29 mg/dl (7-17) H 08/11/25 03:43
Creatinine 0.9 mg/dL (0.6-1.0) 08/11/25 03:43
eGFR > 60.00 08/11/25 03:43
Glucose 81 mg/dl (70-99) 08/11/25 03:43
Calcium 8.7 mg/dl (8.4-10.2) 08/11/25 03:43
Hfa-A-Alaknczfeaq Pept 08241 pg/ml 08/08/25 10:29
Albumin 4.4 g/dl (3.5-5.0) 08/07/25 18:23
Physical Exam
-
Vital Signs:
Vital Signs
Temp Pulse Resp BP Pulse Ox
97.7 F 72 17 119/65 100
08/11/25 11:44 08/11/25 11:00 08/11/25 11:44 08/11/25 08:52 08/11/25 11:44
Cardiovascular:: Regular rate and rhythm
Respiratory:: Bilateral: Coarse
Lung Excursion:: Normal
Abdomen:: Nontender and Soft
Bowel Sounds:: Normal
Extremity Edema:: None: Bilateral:
--- NOTE | 2025-08-11 13:06 | W.PN.HOSP.TC ---
Today's Communication/Plan
-
Continue current treatment plan
[facility] on Wednesday
Follow sodium level
Assessment / Plan
Assessment / Plan
Impression:
85 years old female with history of CAD, nonischemic cardiomyopathy with LVEF 35-40%, HOCM with attempt septal ablation last week at tertiary facility presents with generalized fatigue, periodic chest pressure radiating to the neck and left upper
extremity.
Acute coronary syndrome, non-STEMI
Intermittent LBBB
Hyponatremia.
Conditions prior to admission
CAD with history of intervention to LAD and RCA.
Recovered cardiomyopathy with EF of 35-40% up to LVEF of 60% on most recent echo
HOCM
Valvular disease including mild MR/mild AR/mild TR
TYSHAWN
Essential hypertension
History of breast cancer status post lumpectomy, chemotherapy and radiation 2001
History of TBI
Sleep apnea
Fibromyalgia
Anxiety/depression.
Hyponatremia
Echo 01/18/2025
Normal left ventricular size and systolic function. No regional wall motion
abnormalities are seen. LV ejection fraction is 60% by Brush's biplane method
of discs. Left ventricular hypertrophy; septum thicker than posterior wall. (
1.3 cm). Peak LVOT gradient at rest of 14 mmHg; 109 with Valsalva and 25 with
the patient standing.
Mild mitral regurgitation.
Mild aortic regurgitation.
Mild tricuspid regurgitation. Estimated pulmonary artery pressure of 22 mmHg.
Compared to the previous echo from Jun 2024, at that time, EF was 35-40% with
distal septal and apical akinesis, and distal inferior/anterior/lateral
hypokinesis with severe MR.
Plan
Acute coronary syndrome non-STEMI
Troponin peaked at 1.7.
Patient with hypertrophic obstructive cardiomyopathy and attempt of septal alcohol ablation last week at a tertiary facility.
Has known CAD with prior intervention to LAD and RCA.
Currently chest pain-free.
Noted to be hypotensive? If hypovolemic given low oral intake.
ECG with? Known LBBB, intermittent.
Initiated on IV heparin
Continue beta-jazmin, aspirin, statin
Cardiology postpone left heart catheterization on Wednesday due to renal dysfunction, repeat plan to be done on Wednesday
Patient is planned to having septal ablation procedure at [facility] on Wednesday, cardio have contacted primary belt builder from [facility] awaiting further response
Generalized fatigue and weakness upon presentation to
Likely multifactorial.
Afebrile and nontoxic-appearing with no complaints suggestive of infection.
Noted abnormal urinalysis, although with no urinary complaints. Urine cultures pending. Monitor closely off antibiotics
Hyponatremia - resolved
Sodium dory of 122 this admission, got tolvaptan 15 mg on
Na improved to 136 from 122 with tolvaptan 15mg
40 oz fluid restriction added
renal function bumped to 1.2 - trended down , likely elevated from tolvaptan causing some diuresis
not hypotensive/did not get any nephrotoxic med/did not get contrast
Full code
Anticipated Discharge: > 48 hours
Subjective/Interval History
-
Date of Service: August 11, 2025
No issues reported overnight
Objective Data
-
Labs:
Laboratory Results
08/11/25
03:43
WBC 6.9
Hgb 12.5
Hct 36.3 L
Plt Count 120 L
APTT 92.2 H
Sodium 135
Potassium 4.2
Chloride 106
Carbon Dioxide 25
BUN 29 H
Creatinine 0.9
Glucose 81
Calcium 8.7
Vital Signs:
Vital Signs
Temp Pulse Resp BP Pulse Ox
97.7 F 72 17 119/65 100
08/11/25 11:44 08/11/25 11:00 08/11/25 11:44 08/11/25 08:52 08/11/25 11:44
I&O
08/10/25 08/11/25 08/12/25
06:59 06:59 06:59
Intake Total 590 / 590
Output Total 715 / 715
Balance -125 / -125
Review of Systems
-
Respiratory: Reports No Symptoms
Cardiac: Reports No Symptoms
Abdomen/GI: Reports No Symptoms
Physical Exam
-
General: Comfortable
HEENT: Negative Oxygen
Respiratory: Clear to Auscultation
Cardiac: Regular Rhythm and S1/S2; Negative Murmur or Rub
GI: Soft, Nontender and Nondistended
Musculoskeletal: No Edema
Neuro: Awake, Alert, Oriented, No Motor Deficits and Nonfocal/Grossly Intact
Psych: Calm
[2025-08-11] MEDS: HEPARIN 25000 UNITS/250 ML IV (17:19)
--- NOTE | 2025-08-11 19:10 | PTCARENOTE ---
~6120-1247: Reveived handoff report from Messi KRAUSE. Bed/ chair alarm on for safety. Patient AOx4, SB/NSR 50s-70s on tele, SBP 110s-120s, RA satting 100%. Pt does not c/o pain at this time. OOB in chair. Standby assist to bathroom. Heparin gtt infusing
@ 500 units/hr, therapeutic at this time. Family visiting. All needs met at this time, call brown within reach.
~6342-1606: Patient violated bed alarm multiple times and requires re-education and reminding on the need to call when wanting to ambulate for safety reasons, patient voices understanding. Pt OOB in chair at this time. VSS, denies pain. All needs
met at this time, call brown within reach. Handoff report given to nightshift RN.
--- NOTE | 2025-08-11 23:14 | PTCARENOTE ---
assumed care of patient at the change of shift. AAOx3. forgetful at times. oob standby assist. bed alarm for safety. SR on tele with a BBB- 60s. bp stable. denies any cp. mild BARCLAY at times-baseline per patient. heparin gtt infusing per protocol. PM
care completed per patient. educated to call RN with any changes. makes needs known.
[2025-08-12] VITALS (8 sets, daily range): BP systolic 104–141; BP diastolic 62–82; PULSE 64
--- NOTE | 2025-08-12 05:39 | PTCARENOTE ---
patient slept well overnight. R AC IV site- redness noted/mild swelling. flushed well. patient complaining of some tenderness. removed IV site. new IV placed in L arm. heparin gtt continued.
[2025-08-12 05:57] LABS: APTT 104.6 Sec (23.4-35.0)
[2025-08-12] MEDS: TOPROL XL 25 MG PO ×2 (08:13→20:04)
[2025-08-12] MEDS: MAGNESIUM OXIDE 400 MG PO (08:13)
--- NOTE | 2025-08-12 08:21 | W.PN.CARDCBS ---
Today's Communication / Plan
-
Monitor renal function
N.p.o. after midnight for left heart catheterization
Impression / Plan
-
Primary Pick Up And Delivery Driver: Dr. RIDGE Preston and Dr. Paz at [facility]
Impression:
Presentation with weakness, neck/L arm/chest discomfort
Hypotension
Elevated troponin, peak 1.76, concern for NSTEMI
HOCM s/p aborted ETOH septal ablation 05/08/25 at [facility], planned for SESAME procedure at [facility], has office visit with radiology interventional physician on 08/20/2025
Recurrent CM this admission with EF 30-35%, severe MR and mod to severe TR on 08/08/2025 echo
Small pericardial effusion
Coronary artery disease
10/01/20 atherectomy to the LAD and diagonal bifurcation and T stenting with a 2.5/8 mm to Diagonal, 2.5/28 mm Susana Xience V LETHA in the LAD.
10/12/22 Cor angio for CP patent LAD stents and no new significant cor dz
07/10/24 Modest progression of CAD in mid RCA and at origin of 1st diag branch. 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
Hx Traumatic brain injury
she fell out of her bed and hit her head, developed hallucinations approximately 3 weeks later, found to have right subdural collection with subacute to chronic SDH at [facility] 10/2021
Hyponatremia.
Hyperlipidemia with statin intolerance
Left breast cancer status post lumpectomy, chemotherapy and radiation 2001.
Sleep apnea
Fibromyalgia
Osteoarthritis
Dyslipidemia (h/o poorly karla statin but recently tolerating atorvastatin)
Anxiety and depression
Echo 07/10/2024: EF 35 to 40%, distal septum and apex akinetic, distal inferior, distal anterior and distal lateral hypokinetic, hokum with LVOT gradients difficult to assess due to severe MR, systolic anterior motion of anterior mitral valve
leaflet with severe MR, mild AR, moderate TR, PAP 40 to 45 mmHg
ECHO 01/18/25: EF 60%, LVH with septum thicker than posterior wall, peak LVOT gradient at rest 14, 109 with Valsalva and 25 with standing, mild MR, mild AR, mild TR, PAP 22 mmHg
Echo 08/08/2025: Moderately reduced left ventricular systolic function ejection fraction is 30-35%. HCM with greater thickness of the septal wall, measuring 1.5cm. Significant hypokinesis of the mid to distal anteroseptum anterolateral wall and
entire apex. Peak/mean gradients across the left ventricular outflow tract of 43/21 mmHg respectively. Mild AR, severe MR, moderate to severe TR, small pericardial effusion. Compared to previous echo from January 2025, EF was 60% at that time with
mild MR, mild AR and mild TR.
Plan:
HPI: Complicated 85-year-old woman with hypertrophic cardiomyopathy, previously mavacamten which produced incipient cardiogenic shock and severe mitral regurgitation 2000 performed. More recently, alcohol septal ablation was planned at the
[facility] but ultimately not performed as it was felt that the septal software trainer subtended too large an area of myocardium to safely permit alcohol septal ablation. There is consideration for SESAME procedure (Septal scarring
along the mid line endocardium), a form of transcatheter myomectomy at the [facility] by Dr. Sheikh/ Dr Rizzo. She has appointment with Dr Sheikh to discuss this on 08/20/2025.
Pt admitted to 08/07/25 with profound weakness and left shoulder and chest discomfort which is mild. Troponin of 1.7, initially presented with IVCD and anterior ST elevation and evolved anterolateral T wave inversions, which is more similar to
her baseline tracing. Echo this admission 08/08 shows EF of 35% with severe MR and LAD distribution wall motion abnormality. Last echo 01/2025 with EF 60%
PMH: HCM, LAD atherectomy 2020 with Xience stent to mid LAD, cardiac catheterization 2023 showed moderate mid LAD and D1 disease with myocardial bridge and distal LAD, history of traumatic subdural hematoma 2021, hyperlipidemia, statin intolerance,
left breast cancer with chemoradiation 2001, sleep apnea, osteoarthritis, fibromyalgia, anxiety and depression
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
Current meds: IV heparin, aspirin 81 mg a day, atorvastatin 40 mg a day, metoprolol ER 25 mg a day, pantoprazole
She presents with LAD distribution hypokinesis with a troponin of 1.7 with known hypertrophic cardiomyopathy - by catheterization 2023 she had a patent LAD stent with a moderate mid RCA stenosis and a stenosis in a diagonal.
Complex patient as her presentation may represent ACS vs Takotsubo CM vs HCM however with significant change and reduction in left ventricular systolic function, wall motion abnormalities and worsening MR and TR, and elevated troponin, [facility] has been
advised to evaluate her current coronary anatomy and the patency of her stents, initially scheduled for 08/10/2025 but postponed due to TYSHAWN with creatinine bumped to 1.2. Left heart cath postponed to 08/13/2025
Continue IV heparin
Continue aspirin and Toprol and Lipitor
She has aspirin listed as an allergy on her chart. I reviewed this with her and she reports nausea/upset stomach if she takes ASA that is not coated. She has been able to tolerate a daily coated aspirin without nausea or other side effect.
There was also concern for contrast allergy which I also discussed with patient and she denies this. She had a left heart cath here 07/12/2024 which she tolerated with no reaction to contrast.
No recurrent CP.
She has recurrent severe MR.
She also had severe MR when she presented in incipient cardiogenic shock on mavacamten. This subsequently improved.
Despite LV dysfunction and severely elevated proBNP of 26,400, she does not appear significantly volume overloaded and her weight is lower than it was last year, and stable/downtrending this admission.
Continue daily weights and to monitor her volume status.
She is not on a diuretic and would hold diuretics/nephrotoxins given TYSHAWN and upcoming need for cardiac catheterization
appreciate nephrology to eval her hyponatremia which has worsened.
creatinine uptrended to 1.2 08/10/25, back down to 0.9, 08/11.
Dr. Preston reached out to her [facility] senior product consultant, Dr. Jason Rizzo earlier this week and Dr Pillai tried to contact Dr. Sheikh yesterday. Await callback from both. I spoke with Dr. Rizzo's nurse 08/11 and confirmed that Sesame procedure is
not scheduled at this point but that patient has an appointment on 08/20/[address] Sheikh to discuss procedure
There was initially consideration for transfer to [facility] because we thought her sesame procedure was scheduled for 08/13/2025 but now that we have clarified that she is not getting the procedure on 08/13 plan to proceed with left heart cath at
[place]. Tentative plan is for left heart catheterization on 08/13/2025. Dr. Pillai to speak with Dr. Sheikh further regarding possible intervention and transfer if needed.
Telemetry personally reviewed: Normal sinus rhythm 50s to 80s
Progress Note - Pick Up And Delivery Driver
Subjective
Date of Service: August 12, 2025
Patient seen and examined this morning. No acute events overnight. Patient resting comfortably in bed. Denies chest pain, shortness of breath, palpitations, weakness.
Objective
Labs:
Labs
Hgb 12.5 g/dL (12.0-16.0) 08/11/25 03:43
Hct 36.3 % (37.0-47.0) L 08/11/25 03:43
Plt Count 120 10^3/uL (130-400) L 08/11/25 03:43
APTT 104.6 Sec (23.4-35.0) H 08/12/25 05:26
Sodium 135 mmol/L (135-145) 08/11/25 03:43
Potassium 4.2 mmol/L (3.5-5.1) 08/11/25 03:43
BUN 29 mg/dl (7-17) H 08/11/25 03:43
Creatinine 0.9 mg/dL (0.6-1.0) 08/11/25 03:43
Glucose 81 mg/dl (70-99) 08/11/25 03:43
Vital Signs and I&O:
Vital Signs
Temp Pulse Resp BP Pulse Ox
97.6 F 69 16 106/69 98
08/12/25 07:16 08/12/25 08:13 08/12/25 07:16 08/12/25 08:13 08/12/25 07:16
Vital Signs
Temp Pulse Resp BP Pulse Ox
97.6 F 69 16 106/69 98
08/12/25 07:16 08/12/25 08:13 08/12/25 07:16 08/12/25 08:13 08/12/25 07:16
Intake & Output
08/10/25 08/11/25 08/12/25 08/13/25
06:59 06:59 06:59 06:59
Intake Total 590 / 590 250 / 250
Output Total 715 / 715 200 / 200
Balance -125 / -125 50 / 50
Physical Exam
Physical Exam
GEN: No distress, awake, Ox3
HEENT: supple, anicteric, mmm
LUNGS: CTA, no wheezes/rales
CV: Reg, S1/S2, 2/6 syst LSB
ABD: soft, BS+, NT/ND
EXT: No edema
NEURO: Gross non-focal
SKIN: No rash
Telemetry shows sinus rhythm
[2025-08-12 08:42] LABS: Hematocrit 35.5 % (37.0-47.0); Hemoglobin 12.1 g/dL (12.0-16.0); Mean Corp Hgb Conc. 34.1 g/dL (33.0-37.0); Mean Corpuscular Volume 94.9 fL (81.0-99.0); Platelet Count 128 10^3/uL (130-400); Red Cell Dist. Width 13.6 % (11.5-14.5)
[2025-08-12 08:58] LABS: Blood Urea Nitrogen 28 mg/dl (7-17); Calcium 9.0 mg/dl (8.4-10.2); Carbon Dioxide 23 mmol/L (22-30); Chloride 104 mmol/L (98-107); Glucose 156 mg/dl (70-99); Potassium 3.9 mmol/L (3.5-5.1); Sodium 132 mmol/L (135-145); eGFR 55.21
[2025-08-12] MEDS: LOW STRENGTH ASPIRIN 81 MG PO (11:55)
[2025-08-12] MEDS: LIPITOR 40 MG PO (11:55)
[2025-08-12] MEDS: PROTONIX 40 MG PO (11:55)
[2025-08-12] MEDS: MIRALAX 17 GRAMS PO (11:55)
--- NOTE | 2025-08-12 14:49 | W.PN.HOSP.TC ---
Today's Communication/Plan
-
for [facility] tomorrow
monitor Na/Cr
Assessment / Plan
Assessment / Plan
Impression:
85 years old female with history of CAD, nonischemic cardiomyopathy with LVEF 35-40%, HOCM with attempt septal ablation last week at tertiary facility presents with generalized fatigue, periodic chest pressure radiating to the neck and left upper
extremity.
Acute coronary syndrome, non-STEMI
Intermittent LBBB
Hyponatremia.
Conditions prior to admission
CAD with history of intervention to LAD and RCA.
Recovered cardiomyopathy with EF of 35-40% up to LVEF of 60% on most recent echo
HOCM
Valvular disease including mild MR/mild AR/mild TR
TYSHAWN
Essential hypertension
History of breast cancer status post lumpectomy, chemotherapy and radiation 2001
History of TBI
Sleep apnea
Fibromyalgia
Anxiety/depression.
Hyponatremia
Echo 01/18/2025
Normal left ventricular size and systolic function. No regional wall motion
abnormalities are seen. LV ejection fraction is 60% by Brush's biplane method
of discs. Left ventricular hypertrophy; septum thicker than posterior wall. (
1.3 cm). Peak LVOT gradient at rest of 14 mmHg; 109 with Valsalva and 25 with
the patient standing.
Mild mitral regurgitation.
Mild aortic regurgitation.
Mild tricuspid regurgitation. Estimated pulmonary artery pressure of 22 mmHg.
Compared to the previous echo from Jun 2024, at that time, EF was 35-40% with
distal septal and apical akinesis, and distal inferior/anterior/lateral
hypokinesis with severe MR.
Plan
Acute coronary syndrome non-STEMI
Troponin peaked at 1.7.
Patient with hypertrophic obstructive cardiomyopathy and attempt of septal alcohol ablation last week at a tertiary facility.
Has known CAD with prior intervention to LAD and RCA.
Currently chest pain-free.
Noted to be hypotensive? If hypovolemic given low oral intake.
ECG with? Known LBBB, intermittent.
Maintained on IV heparin
Continue beta-jazmin, aspirin, statin
Cardiology postpone left heart catheterization on Wednesday due to renal dysfunction, repeat plan to be done on Wednesday
Patient is planned to having septal ablation procedure at [facility] on Wednesday, cardio have contacted primary client service professional from [facility] awaiting further response
Generalized fatigue and weakness upon presentation to
Likely multifactorial.
Afebrile and nontoxic-appearing with no complaints suggestive of infection.
Noted abnormal urinalysis, although with no urinary complaints. Urine cultures neg. Monitor closely off antibiotics
Hyponatremia - resolved
Sodium dory of 122 this admission, got tolvaptan 15 mg on and Na improved to 136
Sodium drifted down again in 132 today. monitor with repeat samsca dosing if needed
40 oz fluid restriction added
renal function bumped to 1.2 and then normalized, likely elevated from tolvaptan causing some diuresis
not hypotensive/did not get any nephrotoxic med/did not get contrast
Full code
Anticipated Discharge: > 48 hours
Subjective/Interval History
-
Date of Service: August 12, 2025
Denies of any issues overnight
Objective Data
-
Labs:
Laboratory Results
08/12/25 08/12/25
05:26 08:13
WBC 6.3
Hgb 12.1
Hct 35.5 L
Plt Count 128 L
APTT 104.6 H
Sodium 132 L
Potassium 3.9
Chloride 104
Carbon Dioxide 23
BUN 28 H
Creatinine 1.0
Glucose 156 H
Calcium 9.0
Vital Signs:
Vital Signs
Temp Pulse Resp BP Pulse Ox
98.0 F 57 16 106/69 99
08/12/25 11:05 08/12/25 11:05 08/12/25 11:05 08/12/25 08:13 08/12/25 11:05
I&O
08/11/25 08/12/25 08/13/25
06:59 06:59 06:59
Intake Total 590 / 590 250 / 250
Output Total 715 / 715 200 / 200
Balance -125 / -125 50 / 50
Review of Systems
-
Respiratory: Reports No Symptoms
Cardiac: Reports No Symptoms
Abdomen/GI: Reports No Symptoms
Physical Exam
-
General: Comfortable
HEENT: Negative Oxygen
Respiratory: Clear to Auscultation
Cardiac: Regular Rhythm and S1/S2; Negative Murmur or Rub
GI: Soft, Nontender and Nondistended
Musculoskeletal: No Edema
Neuro: Awake, Alert, Oriented, No Motor Deficits and Nonfocal/Grossly Intact
Psych: Calm
--- NOTE | 2025-08-12 19:00 | PTCARENOTE ---
~[id number]: Handoff report received from nightshift RN. Pt AOx4, forgetful, SB/NSR 50s-60s + murmur noted, SBP 100s, RA satting 98%. Pt denies pain at this time. Heparin gtt infusing @ 500, therapeutic at this time. Bed alarm/ chair alarm on for
safety. Standby assist to bathroom. All needs met at this time, call brown within reach.
~[id number]: Patient states that 'it's been a few days since I've had a BM.' Hospitalist TT for PRN bowel regimen. Son came to visit.
~0495-0274: Patient with frequent visitors. Bed alarm violated several times.
patient requires reminding on need to use taco [employer]bell and waiting for assitance before getting OOB. All needs met at this time, call brown within reach.
~6703-4027: Patient standby assist back to bed. VSS. No change from previous assessment. All needs met at this time, call brown within reach. Handoff report given to nightshift RN.
--- NOTE | 2025-08-12 22:25 | PTCARENOTE ---
assumed care of patient of shift. AAOx3. forgetful at times. NPO at midnight for cardiac cath in the AM. patient verbalized understanding. SR on tele 60s. bp stable. denies any cp/sob/palps. heparin gtt infusing per protocol. bed alarm for safety.
answered all questions. call brown within reach.
[2025-08-13] VITALS (14 sets, daily range): BP systolic 105–153; BP diastolic 56–98
[2025-08-13 04:52] LABS: Hematocrit 35.6 % (37.0-47.0); Hemoglobin 12.0 g/dL (12.0-16.0); Mean Corp Hgb Conc. 33.7 g/dL (33.0-37.0); Mean Corpuscular Volume 95.4 fL (81.0-99.0); Platelet Count 125 10^3/uL (130-400); Red Cell Dist. Width 13.3 % (11.5-14.5)
[2025-08-13 04:53] LABS: APTT 95.2 Sec (23.4-35.0)
[2025-08-13 05:10] LABS: Blood Urea Nitrogen 38 mg/dl (7-17); Calcium 9.1 mg/dl (8.4-10.2); Carbon Dioxide 28 mmol/L (22-30); Chloride 104 mmol/L (98-107); Glucose 81 mg/dl (70-99); Potassium 4.4 mmol/L (3.5-5.1); Sodium 134 mmol/L (135-145); eGFR 55.21
--- NOTE | 2025-08-13 07:57 | ITS.CL.CATH ---
Family Service Caseworker - Catheterization
Cardiac Catheterization
Procedure Report:
LEFT HEART CATHETERIZATION
Date of Procedure: August 13, 2025
Referring: Fady Lala.
PROCEDURES:
1. Left heart catheterization, coronary angiogram.
2. Moderate sedation.
INDICATION: NSTEMI
ACCESS: Right radial artery, 6Fr. sheath, under US guidance.
HEMODYNAMICS : (mmHg)
AO (s/d) : 115/61; mean 84
LVEDP : 10
Peak to peak gradient of 15 mmHg at rest, increases to 110 mmHg post PVC.
CORONARY FINDINGS
DOMINANCE: Right
LEFT MAIN: Large-caliber vessel that gives rise to the LAD and the left circumflex artery. There is minimal luminal irregularities.
LEFT ANTERIOR DESCENDING: The LAD arises normally from the left main and runs in the anterior interventricular groove. There is a stent in the mid LAD spanning the origin of the only sizable diagonal branch. The diagonal is also stented
proximally. Ostial Diagonal has 50% stenosis. The mid LAD stent remains widely patent. The proximal/unstented segment in the diagonal branch at its origin and has a smooth 50-60% stenosis that appears stable compared to prior cath from June
2023. There is a prominent myocardial bridge in the mid LAD. The distal LAD wraps around the apex supplying a portion of the inferior wall.
CIRCUMFLEX: The circumflex is a medium caliber nondominant vessel giving rise to a medium caliber bifurcating OM1. The circumflex continues in the AV groove terminating in a small posterolateral branches. There is mild diffuse atherosclerotic
plaque.
RIGHT CORONARY ARTERY: The right coronary artery is a dominant vessel with a 50-60% smooth stenosis in its midportion that is stable compared to prior cath from June 2024. The PDA is small but patent
SEDATION: 27 minutes of procedural sedation was utilized. IV Midazolam and IV Fentanyl were administered. An independent medical pathologist was present to assist with and help manage the patient's level of consciousness and physiologic status.
RADIATION SUMMARY: Fluoro Time (min): 3.7, Dose (mGy): 162, DAP (Gy.cm2) : 7.08
Closure Device: There were no immediate intra-procedural complications. The sheath was pulled in the laborer/key man and a vascular-band applied to the right wrist for radial artery hemostasis using the patent hemostasis technique.
CONCLUSIONS
1. Stable coronary artery disease with no clear culprit of presenting NSTEMI.
2. Peak to peak gradient of 15 mmHg at rest, increases to 110 mmHg post PVC.
3. LVEDP of 10 mmHg.
RECOMMENDATIONS
1. Wean radial band per protocol. Monitor right hand perfusion and for bleeding from the radial site following removal of the vascular-band following trans-radial access.
2. Continue aggressive medical therapy and risk factor modification for secondary CAD prevention.
3. Hydrate with normal saline to mitigate the risk of contrast-induced acute kidney injury.
4. Follow-up with Dr. Sheikh as scheduled next week on August 20, 2025
5. Outpatient follow up with Dr. Garcia. I called and discussed cath findings with him. We are assuming probable recurrent stress cardiomyopathy from significant obstruction in the setting of known hypertrophic cardiomyopathy. Plan to add low-dose
losartan as blood pressures will allow to optimize goal-directed medical therapy along with Toprol-XL. She has follow-up scheduled at [facility] next week
Sumi Pillai MD, [facility], [facility]
Copy to: Dr. Jason Rizzo, Dr. Erwin Preston and Dr. Deepak Sheikh
[2025-08-13] MEDS: TOPROL XL PO (08:40)
[2025-08-13] MEDS: MAGNESIUM OXIDE 400 MG PO (08:40)
[2025-08-13] MEDS: LOW STRENGTH ASPIRIN 81 MG PO (11:35)
[2025-08-13] MEDS: LIPITOR 40 MG PO (11:35)
[2025-08-13] MEDS: PROTONIX 40 MG PO (11:35)
--- NOTE | 2025-08-13 11:49 | W.PN.HOSP.TC ---
Today's Communication/Plan
-
Left heart cath
IV heparin
Assessment / Plan
Assessment / Plan
Impression:
85 years old female with history of CAD, nonischemic cardiomyopathy with LVEF 35-40%, HOCM with attempt septal ablation last week at tertiary facility presents with generalized fatigue, periodic chest pressure radiating to the neck and left upper
extremity.
Acute coronary syndrome, non-STEMI
Intermittent LBBB
Hyponatremia.
Conditions prior to admission
CAD with history of intervention to LAD and RCA.
Recovered cardiomyopathy with EF of 35-40% up to LVEF of 60% on most recent echo
HOCM
Valvular disease including mild MR/mild AR/mild TR
TYSHAWN
Essential hypertension
History of breast cancer status post lumpectomy, chemotherapy and radiation 2001
History of TBI
Sleep apnea
Fibromyalgia
Anxiety/depression.
Hyponatremia
Echo 01/18/2025
Normal left ventricular size and systolic function. No regional wall motion
abnormalities are seen. LV ejection fraction is 60% by Brush's biplane method
of discs. Left ventricular hypertrophy; septum thicker than posterior wall. (
1.3 cm). Peak LVOT gradient at rest of 14 mmHg; 109 with Valsalva and 25 with
the patient standing.
Mild mitral regurgitation.
Mild aortic regurgitation.
Mild tricuspid regurgitation. Estimated pulmonary artery pressure of 22 mmHg.
Compared to the previous echo from Jun 2024, at that time, EF was 35-40% with
distal septal and apical akinesis, and distal inferior/anterior/lateral
hypokinesis with severe MR.
Echo 08/08/2025: Moderately reduced left ventricular systolic function ejection fraction is 30-35%. HCM with greater thickness of the septal wall, measuring 1.5cm. Significant hypokinesis of the mid to distal anteroseptum anterolateral wall and
entire apex. Peak/mean gradients across the left ventricular outflow tract of 43/21 mmHg respectively. Mild AR, severe MR, moderate to severe TR, small pericardial effusion. Compared to previous echo from January 2025, EF was 60% at that time with
mild MR, mild AR and mild TR.
Plan
Acute coronary syndrome non-STEMI
Troponin peaked at 1.7.
Patient with hypertrophic obstructive cardiomyopathy and attempt of septal alcohol ablation last week at a tertiary facility.
Has known CAD with prior intervention to LAD and RCA.
Currently chest pain-free.
Noted to be hypotensive upon admission likely secondary to hypovolemia with low oral intake
ECG with? Known LBBB, intermittent.
Repeated echocardiogram as above with concern of possible acute coronary syndrome versus stress cardiomyopathy
For left heart cath on 08/13
Maintained on IV heparin
Continue beta-jazmin, aspirin, statin.
Acute kidney injury.
Improved with IV fluid bolus
Sodium bicarbonate provided prior to catheterization
Acute on chronic hyponatremia.
Clinical assessment with no evidence of volume overload.
Urine osmolarity over 700 and decreased urine sodium consistent with high ADH state along with intravascular depletion.
TSH within normal limits
Status post Samsca
Sodium improved to 122�135.
Generalized fatigue and weakness upon presentation to
Likely multifactorial.
Afebrile and nontoxic-appearing with no complaints suggestive of infection.
Noted abnormal urinalysis, although with no urinary complaints. Urine cultures neg. Monitor closely off antibiotics
Full code
Anticipated Discharge: 24 - 48 hours
Subjective/Interval History
-
Date of Service: August 13, 2025
Objective Data
-
Labs:
Laboratory Results
08/13/25
04:26
WBC 5.7
Hgb 12.0
Hct 35.6 L
Plt Count 125 L
APTT 95.2 H
Sodium 134 L
Potassium 4.4
Chloride 104
Carbon Dioxide 28
BUN 38 H
Creatinine 1.0
Glucose 81
Calcium 9.1
Vital Signs:
Vital Signs
Temp Pulse Resp BP Pulse Ox
97.7 F 56 20 153/80 98
08/13/25 10:49 08/13/25 10:00 08/13/25 10:49 08/13/25 06:49 08/13/25 10:49
I&O
08/12/25 08/13/25 08/14/25
06:59 06:59 06:59
Intake Total 250 / 250 250 / 250
Output Total 200 / 200
Balance 50 / 50 250 / 250
Physical Exam
-
General: Comfortable
HEENT: Negative Oxygen
Respiratory: Clear to Auscultation
Cardiac: Regular Rhythm and S1/S2; Negative Murmur or Rub
GI: Soft, Nontender and Nondistended
Musculoskeletal: No Edema
Neuro: Awake, Alert, Oriented, No Motor Deficits and Nonfocal/Grossly Intact
Psych: Calm
--- NOTE | 2025-08-13 19:14 | PTCARENOTE ---
~[id number]: Handoff report received from nightshift RN. Pt AOx4, forgetful at times SB/NSR 50s-60s on tele, SBP 150s, RA satting 99%. Pt denies pain at this time. Bed/ chair alarms in place for safety, patient can be impulsive at times and violate
bed alarm, re-education required to use call brown to ring for assistance. Pt NPO for CCL later today. Son visiting at bedside. Ax1 to bathroom. Heparin gtt infusing at 500 units/hr, therapeutic at this time. All needs met, call brown within reach.
~[id number]: Patient remains NPO at this time for botany laboratory assistant. She is getting a bit anxious waiting for her procedure, support provided. Family at bedside visiting. All needs met at this time, call brown within reach.
~[id number]: Patient resting in room. Assessment unchanged from previous. All needs met at this time, call brown within reach.
~1700: Report given to CCL, patient taken via bed with botany laboratory assistant team in stable condition.
~[id number]: Received handoff from CCL. Patient brought back to unit in stable condition. R radial TR band present, no oozing or hematoma noted. Handoff report given to nightshift RN.
[2025-08-13] MEDS: TOPROL XL 25 MG PO (19:45)
[2025-08-13] MEDS: MIRALAX 17 GRAMS PO (19:46)
--- NOTE | 2025-08-13 23:56 | PTCARENOTE ---
Received pt at change of shift resting in bed. SB-SR w/ BBBC, HR 50's-70's. pt denies any CP or SOB at this time. PRN Miralax administered per pt request--see NOV. R radial band removed at 2330, dressing placed and is C/D/I, no bleeding or hematoma
noted at this time. pt AAO x3, forgetful @ x's. Fall risk precautions maintained, bed alarm on and audible. Encouraged pt to call RN for assistance ambulating, verbalizes understanding.
[2025-08-14] VITALS (20 sets, daily range): BP systolic 77–144; BP diastolic 43–102; PULSE 60–75
--- NOTE | 2025-08-14 00:01 | PTCARENOTE ---
Received pt at change of shift resting in bed. SB-SR w/ BBBC, HR 50's-70's. pt denies any CP or SOB at this time. PRN Miralax administered per pt request--see NOV. R radial band removed at 2330, dressing placed and is C/D/I, no bleeding or hematoma
noted at this time. pt AAO x3, forgetful @ x's. Fall risk precautions maintained, bed alarm on and audible. Encouraged pt to call RN for assistance ambulating, verbalizes understanding. Call brown within reach.
[2025-08-14] MEDS: TYLENOL 650 MG PO (01:03)
[2025-08-14 06:54] LABS: Hematocrit 35.1 % (37.0-47.0); Hemoglobin 11.9 g/dL (12.0-16.0); Mean Corp Hgb Conc. 33.9 g/dL (33.0-37.0); Mean Corpuscular Volume 95.4 fL (81.0-99.0); Platelet Count 122 10^3/uL (130-400); Red Cell Dist. Width 13.6 % (11.5-14.5)
[2025-08-14 06:59] LABS: APTT 35.5 Sec (23.4-35.0)
[2025-08-14 07:15] LABS: Blood Urea Nitrogen 31 mg/dl (7-17); Calcium 8.6 mg/dl (8.4-10.2); Carbon Dioxide 27 mmol/L (22-30); Chloride 103 mmol/L (98-107); Glucose 66 mg/dl (70-99); Potassium 4.5 mmol/L (3.5-5.1); Sodium 133 mmol/L (135-145); eGFR > 60.00
[2025-08-14] MEDS: COZAAR 25 MG PO (08:16)
[2025-08-14] MEDS: MAGNESIUM OXIDE 400 MG PO (08:16)
[2025-08-14] MEDS: TOPROL XL 25 MG PO ×2 (08:16→20:29)
--- NOTE | 2025-08-14 11:15 | W.PN.CARDCBS ---
Addendum entered and electronically signed by Felton Scott MD 08/14/25 11:35:
I saw and examined the patient.
The ENAMEL SHADER or PA's note was reviewed and I agree with the note.
Comment: General: Well developed, well nourished in NAD.
Neck: Supple, no JVD, HJR, carotids +2 B/L, no bruits bilaterally.
Heart: Non displaced PMI, RRR, no murmurs, No S3, S4, no rubs.
Lungs: Clear to auscultation bilaterally, no wheeze, rhonchi, rubs bilaterally,
normal expiratory phase.
Extremities: No clubbing, cyanosis or edema bilaterally.
Neuro: Grossly nonfocal, awake, alert and oriented x3.
Stable cardiology status for discharge. Follow-up at [facility] on August 20. Discussed with primary service. Cozaar is new medication.
Original Note:
Today's Communication / Plan
-
continue asa, lipitor, toprol, new to cozaar
plan for follow up with [facility] 08/20 to discuss SESAME procedure
ok for DC today
Impression / Plan
-
Primary Railroad Surveyor: Dr. RIDGE Preston and Dr. Paz at [facility]
Impression:
Presentation with weakness, neck/L arm/chest discomfort
Hypotension
Elevated troponin, peak 1.76, concern for NSTEMI
HOCM s/p aborted ETOH septal ablation 05/08/25 at [facility], planned for SESAME procedure at [facility], has office visit with cement boat and barge loader on 08/20/2025
Recurrent CM this admission with EF 30-35%, severe MR and mod to severe TR on 08/08/2025 echo
Small pericardial effusion
Coronary artery disease
10/01/20 atherectomy to the LAD and diagonal bifurcation and T stenting with a 2.5/8 mm to Diagonal, 2.5/28 mm Susana Xience V LETHA in the LAD.
10/12/22 Cor angio for CP patent LAD stents and no new significant cor dz
07/10/24 Modest progression of CAD in mid RCA and at origin of 1st diag branch. 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
Hx Traumatic brain injury
she fell out of her bed and hit her head, developed hallucinations approximately 3 weeks later, found to have right subdural collection with subacute to chronic SDH at [facility] 10/2021
Hyponatremia.
Hyperlipidemia with statin intolerance
Left breast cancer status post lumpectomy, chemotherapy and radiation 2001.
Sleep apnea
Fibromyalgia
Osteoarthritis
Dyslipidemia (h/o poorly karla statin but recently tolerating atorvastatin)
Anxiety and depression
Echo 07/10/2024: EF 35 to 40%, distal septum and apex akinetic, distal inferior, distal anterior and distal lateral hypokinetic, hokum with LVOT gradients difficult to assess due to severe MR, systolic anterior motion of anterior mitral valve
leaflet with severe MR, mild AR, moderate TR, PAP 40 to 45 mmHg
ECHO 01/18/25: EF 60%, LVH with septum thicker than posterior wall, peak LVOT gradient at rest 14, 109 with Valsalva and 25 with standing, mild MR, mild AR, mild TR, PAP 22 mmHg
Echo 08/08/2025: Moderately reduced left ventricular systolic function ejection fraction is 30-35%. HCM with greater thickness of the septal wall, measuring 1.5cm. Significant hypokinesis of the mid to distal anteroseptum anterolateral wall and
entire apex. Peak/mean gradients across the left ventricular outflow tract of 43/21 mmHg respectively. Mild AR, severe MR, moderate to severe TR, small pericardial effusion. Compared to previous echo from January 2025, EF was 60% at that time with
mild MR, mild AR and mild TR.
Plan:
-She presented with L arm/chest/neck discomfort with LAD distribution hypokinesis with a troponin of 1.7 in setting of known hypertrophic cardiomyopathy - by catheterization 2023 she had a patent LAD stent with a moderate mid RCA stenosis and a
stenosis in a diagonal.
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
-s/p cath 08/13/25 with stable CAD without clear culprit and LVEDP of 10, felt most likely to be stress CM. will observe off diuretic therapy
-Cr stable at 0.9
-case discussed with HCM team at [facility], Dr. Paz and cozaar was added to regimen post cath
-she is planned for eval with Dr. Sheikh at [facility] on 08/20 as being considered for SESAME procedure. she had undergone aborted ETOH septal ablation 05/08/25 at [facility].
-continue asa, toprol, lipitor
-in SR on review of tele overnight
-plan for DC to home today
-d/w nursing. d/w hospitalist
Progress Note - Railroad Surveyor
Subjective
Date of Service: August 14, 2025
feeling well. no CP, SOB.
Objective
Labs:
08/14/25 04:46
08/14/25 04:46
Labs
Hgb 11.9 g/dL (12.0-16.0) L 08/14/25 04:46
Hct 35.1 % (37.0-47.0) L 08/14/25 04:46
Plt Count 122 10^3/uL (130-400) L 08/14/25 04:46
APTT 35.5 Sec (23.4-35.0) H 08/14/25 04:46
Sodium 133 mmol/L (135-145) L 08/14/25 04:46
Potassium 4.5 mmol/L (3.5-5.1) 08/14/25 04:46
BUN 31 mg/dl (7-17) H 08/14/25 04:46
Creatinine 0.9 mg/dL (0.6-1.0) 08/14/25 04:46
Glucose 66 mg/dl (70-99) L 08/14/25 04:46
Vital Signs and I&O:
Vital Signs
Temp Pulse Resp BP Pulse Ox
97.7 F 62 18 129/81 98
08/14/25 11:10 08/14/25 07:40 08/14/25 11:10 08/14/25 07:40 08/14/25 11:10
Vital Signs
Temp Pulse Resp BP Pulse Ox
97.7 F 62 18 129/81 98
08/14/25 11:10 08/14/25 07:40 08/14/25 11:10 08/14/25 07:40 08/14/25 11:10
Intake & Output
08/12/25 08/13/25 08/14/25 08/15/25
07:59 07:59 07:59 07:59
Intake Total 250 / 250 250 / 250 960 / 960 180 / 180
Output Total 200 / 200 200 / 200
Balance 50 / 50 250 / 250 760 / 760 180 / 180
Physical Exam
Physical Exam
GEN: No distress, awake, alert, oriented x3
HEENT: supple, anicteric, mmm, eomi
LUNGS: CTA B/L, no wheezes/rales
CV: Reg, S1/S2, 1/6 murmur
ABD: soft, BS+, NT/ND
EXT: No cyanosis, clubbing, edema
NEURO: Gross non-focal
SKIN: Warm, pink, dry. No rash. wrist site c/d/i
--- NOTE | 2025-08-14 11:38 | W.DS.TRANS ---
DC Summary - Clinical Trial Educator
-
Discharge Instructions:
Discharge Diagnosis/Procedures Cardiomyopathy with concern for acute coronary
syndrome
Diet 2 Gram Sodium
Instructions:
Stand-Alone Forms:
Changes to Home Medications: Yes
Discharge Medications:
DC Medications w/original date entered in [employer]
pantoprazole 40 mg tablet,delayed release 40 mg PO NOON Gastrointestinal issue 09/30/20
ascorbic acid (vitamin C) 250 mg tablet (Vitamin C) 250 mg PO NOON Supplement 07/09/24
aspirin 81 mg chewable tablet 81 mg PO NOON Blood Clot Prevention/Tx 07/09/24
atorvastatin 40 mg tablet 40 mg PO NOON High Cholesterol 07/09/24
biotin 10,000 mcg chewable tablet (Hair, Skin and Nails (biotin)) 10,000 mcg PO NOON Supplement 07/09/24
cholecalciferol (vitamin D3) 25 mcg (1,000 unit) tablet (Vitamin D3) 25 mcg PO NOON Supplement 07/09/24
cyanocobalamin (vitamin B-12) 500 mcg tablet 500 mcg PO NOON Supplement 07/09/24
metoprolol succinate 25 mg tablet,extended release 24 hr (Toprol XL) 25 mg PO BID heart disease/condition 07/09/24
magnesium tab PO DAILY 08/10/25
losartan 25 mg tablet 25 mg PO DAILY #30 tabs 08/14/25
Home Medication Changes
Losartan added
Pending Results: No
--- NOTE | 2025-08-14 11:40 | CON.NEURO ---
Addendum entered and electronically signed by Jann Thacker MD 08/14/25 13:51:
Studies reviewed.
I have personally examined the patient. I reviewed and agree with the FREIGHT ENGINEER's Note.
My addenda:
Awake, alert, interactive. No acute distress.
Speech intact.
Follows 2-step requests w/o difficulty. No tremor.
Extra-ocular movements grossly intact.
Facial movements full and symmetric. Hearing intact to normal conversational volume.
Normal UE movements bilaterally.
Neck: full ROM.
Chest: no dyspnea
Heart: no JVD
Ext: (-) Clubbing, (-) Cyanosis, (-) Edema
IMPRESSIONS/RECOMMENDATIONS:
Abrupt onset of aphasia. Most likely toxic metabolic encephalopathy in the form of hyponatremia induced.
Continue patient's usual aspirin and atorvastatin
Goal of normoglycemia
Goal of normotension
Consider outpatient neuropsychological testing to determine if patient at high risk for having episodes of aphasia
D/W patient
All questions answered.
Will continue to follow as outpatient.
Original Note:
Documented by User: Mirna White NP 08/14/25 13:34
Neuro Assessment/Plan
Assessment
Patient is a 85 years old female with history of CAD, nonischemic cardiomyopathy with LVEF 35-40% now presents as stroke alert given recurrent aphasia.
Head CT: No evidence of acute intracranial abnormality. ASPECT score: 10
Plan
Differential: transient aphasia secondary to hypoglycemia vs TIA although less likely
-goal normoglycemia
-goal normotension
-continue aspirin and atorvastatin for secondary stroke prevention
-appreciate cardiology recommendations
All questions encouraged and answered, plan of care discussed with patient and Dr. Thacker
Consultation
Order
Date of Consultation: 08/14/25
Requesting Provider: hospitalist/ Dr. Oscar Le
Reason for Consult: stroke alert
Subjective/Objective
Subjective Data
Date of Service: August 14, 2025
Patient is a 85 years old female with history of CAD, nonischemic cardiomyopathy with LVEF 35-40%, HOCM with attempt septal ablation last week at [facility] presented to [facility] on 08/07/25 with generalized fatigue, periodic chest
pressure radiating to the neck and left upper extremity. Today stroke alert called for aphasia at 1140, noted to have a blood glucose level of 65. Per patient, she had similar symptoms in the past with last episode occurring about 2 months ago. She
states she was diagnosed with TIA. At time of evaluation patient's speech back to baseline with no aphasia or dysarthria. Patient awake, alert and oriented. CT head with no acute abnormalities. NIHSS 0 and not a TNK candidate. Previously seen by our
service by Dr. Thacker in December of 2024 in the outpatient setting.
'TIA:�
������Adapted from ED Provider note:
04/2024
83-year-old female presents from her family doctor's office via EMS after having episode of expressive aphasia in the office. No prior issues similar to this. She is not anticoagulated. She does have history of cardiomyopathy and is in a clinical
trial.
Since last visit:
12/2024
Dizziness seems like it has gotten worse. Most bothersome during the night but also during the day too with position change. She feels light-headed with position change and also notes a spinning sensation. She feels 'clumsy' on her feet, she
attributes this somewhat to her right foot bunion.
07/2024
5 days in , then x-fered to [facility] due to cardiac dysfunction
~~~~
Since ED presentation at [facility]:
05/2024
Aphasia was non-words which lasted for few minutes, high-stress at the time, no dizziness or headache, no prior episodes
Has been having headaches since the event
Patient was started on Clopidogrel at the time, now discontinued
After patient presented to ED, patient evaluated by usual [employer]
Patient reports poor quality of sleep
Reports being primary care-provider for without external help
Has dizziness lying to standing
Previous testing:
blood work
CTA head and neck 03/2024 mild left MCA slow flow
CT of head 2021 right subdural hematoma
MRI of brain 07/2024 unremarkable
Sleep studies in 2009 indicating AHI of 33
Prior medication(s): ASA, Clopidogrel, Atorvastatin
Side-effects with medications: none
Prior evaluation: [employer], local Neurologist prior to 04/2023
Previous treatment(s): therapy evaluation, cardiac monitoring
Frequency since hospitalization: N/A
Intensity since hospitalization: N/A
Duration: since 04/2022
Duration of symptom: unchanged since onset
Etiology: unclear currently; presumed to be thromboembolic
Location: N/A
Quality: N/A
Associated symptom(s): none
Improving factors: patient unaware of any
Worsening factors: patient unaware of any
Unchanged by: patient unaware of any
Severity: significant.'
Objective Data
Vital Signs
Temp Pulse Resp BP Pulse Ox
97.7 F 62 18 129/81 98
08/14/25 11:10 08/14/25 07:40 08/14/25 11:10 08/14/25 07:40 08/14/25 11:10
Lab Results
08/14/25 04:46
08/14/25 04:46
APTT 35.5 Sec (23.4-35.0) H 08/14/25 04:46
Sodium 133 mmol/L (135-145) L 08/14/25 04:46
Potassium 4.5 mmol/L (3.5-5.1) 08/14/25 04:46
BUN 31 mg/dl (7-17) H 08/14/25 04:46
Glucose 66 mg/dl (70-99) L 08/14/25 04:46
Calcium 8.6 mg/dl (8.4-10.2) 08/14/25 04:46
Nuz-F-Zkwzqtlmjpt Pept 02905 pg/ml 08/08/25 10:29
LDL Cholesterol, Calc 54 mg/dl 08/08/25 05:45
Patient Allergies
aspirin Allergy (Verified 08/10/25 08:58)
Nausea / Vomiting
Cephalosporins Allergy (Verified 08/07/25 18:05)
Unknown
iodine Allergy (Verified 08/10/25 08:59)
Unknown
NSAIDS (Non-Steroidal Anti-Inflamma Allergy (Verified 08/07/25 18:05)
Unknown
penicillin G Allergy (Verified 08/07/25 18:05)
Nausea / Vomiting
Penicillins Allergy (Verified 08/07/25 18:05)
Nausea / Vomiting
Salicylates * Allergy (Verified 08/07/25 18:05)
Nausea / Vomiting
Sulfa (Sulfonamide Antibiotics) Allergy (Verified 08/07/25 18:05)
Nausea / Vomiting
sulfamethoxazole Allergy (Verified 08/07/25 18:05)
Nausea / Vomiting
trimethoprim Allergy (Verified 08/07/25 18:05)
Nausea / Vomiting
verapamil Allergy (Verified 08/07/25 18:05)
Shortness of Breath
CVA Assessment
Onset of Stroke Symptoms
Onset of symptoms known: Yes
Date of onset of symptoms: 08/14/25
Time of onset of symptoms: 11:40
Time pt last seen normal is known: Yes
Date last time pt seen normal: 08/14/25
Time last time pt seen normal: 11:20
NIH Stroke Score
Level of Consciousness: 0 - Alert
LOC Questions: 0-Answers both correctly
LOC Commands: 0-Performs both correctly
Best Horizontal Gaze: 0-Normal
Visual May: 0=Normal, no visual loss
Facial Palsy: 0=Normal, symmetrical
Motor - Right Arm: 0=No drift 10 seconds
Motor - Left Arm: 0=No drift 10 seconds
Motor - Right Le-No drift 5 seconds
Motor - Left Le-No drift 5 seconds
Limb Ataxia: 0-Absent
Sensation: 0-Normal
Best Language: 0-No aphasia
Dysarthria: 0-Normal
Extinction and Inattention: 0-No abnormality
NIH Total Score:: 0
Tenecteplase Contraindications
Inclusion and Exclusion criteria reviewed: Yes
IAT Contraindications: NIHSS < 6
Modified [place] Score (MRS)
-
Modified She Scale (mRS): No symptoms
Score: 0
Physical Exam
-
General: No Apparent Distress and Comfortable
HEENT: Normocephalic and Atraumatic
Neck: Full Range of Motion
Respiratory: No Dyspnea
Cardiac: No JVD
GI: Non-distended
Skin: Unremarkable
Extremities: No Clubbing, No Cyanosis and No Edema
Psych: Unremarkable
Extended Neurological Exam
Mood & Affect: Mood Unremarkable
Attention Span & Concentration: Awake, Alert, Interactive and No Difficulty with 2 Step Request
Memory: Unremarkable
Speech: Quality Unremarkable, Quantity Unremarkable and Rate of Production Unremarkable
Cranial Nerve II: Left Eye: Visual May Intact
Cranial Nerve II: Right Eye: Visual May Intact
Cranial Nerves III, IV, : Extraocular Movement: Extraocular Movement Full in all Directions
Cranial Nerve VII: Facial Symmetry: Normal Facial Symmetry
Cranial Nerve VIII: Hearing: Unremarkable Hearing to Normal Conversational Volume
Muscle Strength, Overall: Full Throughout
Pronator Drift: No Drift in Upper Extremities and No Drift in Lower Extremities
Coordination: Wowuqr-mhhx-xaeyci Testing Unremarkable and Reaches for Objects without Difficulty
Data Reviewed
-
CT Head: Report Reviewed and Image Reviewed
Medical Test Reports: Report Reviewed
Labs: Report Reviewed
Reviewed with: Physician, Nurse and Patient
Old Records: Summarized
Medications
-
Active Medications
Generic Name Dose Route Start Last Admin
Trade Name Freq PRN Reason Stop Dose Admin
Acetaminophen 650 mg 08/08/25 22:41 08/14/25 01:03
Acetaminophen 325 Mg Tablet PO 09/05/25 22:40 650 mg
Q4HPRN PRN Administration
mild pain/MEYER/temp>100.5
Aspirin 81 mg 08/08/25 12:00 08/13/25 11:35
Aspirin 81 Mg Chewable Tablet PO 09/05/25 11:59 81 mg
NOON CAPO Administration
Atorvastatin Calcium 40 mg 08/08/25 12:00 08/13/25 11:35
Atorvastatin (Lipitor) 40 Mg Tablet PO 09/05/25 11:59 40 mg
NOON CAPO Administration
Losartan Potassium 25 mg 08/14/25 08:00 08/14/25 08:16
Losartan 25 Mg Tablet PO 09/11/25 07:59 25 mg
DAILY CAPO Administration
Magnesium Oxide 400 mg 08/10/25 12:30 08/14/25 08:16
Magnesium Oxide 400 Mg Tablet PO 09/07/25 12:29 400 mg
DAILY CAPO Administration
Metoprolol Succinate 25 mg 08/10/25 20:00 08/14/25 08:16
Metoprolol 25 Mg Extended Release Tablet PO 09/07/25 19:59 25 mg
BID CAPO Administration
Pantoprazole Sodium 40 mg 08/08/25 12:00 08/13/25 11:35
Pantoprazole 40 Mg Delayed Release Tablet PO 09/05/25 11:59 40 mg
NOON CAPO Administration
Pneumococcal 20-Valent Conj Vacc 0.5 ml 08/14/25 11:38
Pneumococcal Conjugate Vaccine (20-Valent) 0.5 Ml Syringe IM 08/14/25 11:39
.ONCE ONE
Polyethylene Glycol 17 grams 08/12/25 10:29 08/13/25 19:46
Polyethylene Glycol Powder 17 Grams Packet PO 09/09/25 10:28 17 grams
DAILYPRN PRN Administration
constipation
Sodium Chloride 0 flush 08/07/25 23:00
Sodium Chloride 0.9% (Flush) Syringe IV 09/04/25 22:59
PER PROTOCOL CAPO
Home Medications
�Medication �Instructions �Recorded
pantoprazole 40 mg tablet,delayed 40 mg PO NOON Gastrointestinal 09/30/20
release issue
ascorbic acid (vitamin C) 250 mg 250 mg PO NOON Supplement 07/09/24
tablet (Vitamin C)
aspirin 81 mg chewable tablet 81 mg PO NOON Blood Clot 07/09/24
Prevention/Tx
atorvastatin 40 mg tablet 40 mg PO NOON High Cholesterol 07/09/24
biotin 10,000 mcg chewable tablet 10,000 mcg PO NOON Supplement 07/09/24
(Hair, Skin and Nails (biotin))
cholecalciferol (vitamin D3) 25 25 mcg PO NOON Supplement 07/09/24
mcg (1,000 unit) tablet (Vitamin
D3)
cyanocobalamin (vitamin B-12) 500 500 mcg PO NOON Supplement 07/09/24
mcg tablet
metoprolol succinate 25 mg 25 mg PO BID heart 07/09/24
tablet,extended release 24 hr disease/condition
(Toprol XL)
magnesium tab PO DAILY 08/10/25
losartan 25 mg tablet 25 mg PO DAILY #30 tabs 08/14/25
Past History
Past History
ED Past Medical History: CAD, Cancer (Left breast), GERD, HTN, Hypercholesterolemia and Other (CM, Diverticulitis)
ED Past Surgical History: Appendectomy, Cardiac (PTCA with stent 2020, 'Fat Heart'), Gynecological (Left breast mastectomy), Orthopedic and Urological (Bladder left)
Family/Social History
Tobacco: Former smoker
Alcohol: None
Drug: None
Personal:
Living: with family
Employment: Retired
Family History: Other (Noncontributory)

Documented by User: Jann Thacker MD 08/14/25 13:44
CVA Assessment
NIH Stroke Score
NIH Total Score:: 0
Modified She Score (MRS)
-
Score: 0
[2025-08-14 11:43] LABS: Glucose - Point of Care 66 mg/dl (70-99)
[2025-08-14 12:06] LABS: Glucose - Point of Care 81 mg/dl (70-99)
--- NOTE | 2025-08-14 12:11 | RR ---
Pt c/o difficulty with word finding during a conversation with visitor. Speech is clear, but words are mixed up. JI =, pupils equal and reactive, no facial droop noted.
A Rapid Response was called on this patient, please see Rapid Response form.
--- NOTE | 2025-08-14 12:51 | W.PN.HOSP.TC ---
Today's Communication/Plan
-
Continue current medications including aspirin, statin, beta-jazmin with addition of losartan
Monitor neurologic status
Assessment / Plan
Assessment / Plan
Impression:
85 years old female with history of CAD, nonischemic cardiomyopathy with LVEF 35-40%, HOCM with attempt septal ablation last week at tertiary facility presents with generalized fatigue, periodic chest pressure radiating to the neck and left upper
extremity.
Acute coronary syndrome, non-STEMI
Intermittent LBBB
Hyponatremia.
Conditions prior to admission
CAD with history of intervention to LAD and RCA.
Recovered cardiomyopathy with EF of 35-40% up to LVEF of 60% on most recent echo
HOCM
Valvular disease including mild MR/mild AR/mild TR
TYSHAWN
Essential hypertension
History of breast cancer status post lumpectomy, chemotherapy and radiation 2001
History of TBI
Sleep apnea
Fibromyalgia
Anxiety/depression.
Hyponatremia
Echo 01/18/2025
Normal left ventricular size and systolic function. No regional wall motion
abnormalities are seen. LV ejection fraction is 60% by Brush's biplane method
of discs. Left ventricular hypertrophy; septum thicker than posterior wall. (
1.3 cm). Peak LVOT gradient at rest of 14 mmHg; 109 with Valsalva and 25 with
the patient standing.
Mild mitral regurgitation.
Mild aortic regurgitation.
Mild tricuspid regurgitation. Estimated pulmonary artery pressure of 22 mmHg.
Compared to the previous echo from Jun 2024, at that time, EF was 35-40% with
distal septal and apical akinesis, and distal inferior/anterior/lateral
hypokinesis with severe MR.
Echo 08/08/2025: Moderately reduced left ventricular systolic function ejection fraction is 30-35%. HCM with greater thickness of the septal wall, measuring 1.5cm. Significant hypokinesis of the mid to distal anteroseptum anterolateral wall and
entire apex. Peak/mean gradients across the left ventricular outflow tract of 43/21 mmHg respectively. Mild AR, severe MR, moderate to severe TR, small pericardial effusion. Compared to previous echo from January 2025, EF was 60% at that time with
mild MR, mild AR and mild TR.
Plan
Transient episode of expressive aphasia on 08/14.
No other focal abnormalities noted
Blood glucose 66
CT scan of the head with no acute abnormalities
All improved with orange juice.
Monitor closely
Continue aspirin and atorvastatin.
Check efficacy for aspirin
Discussed with neurology. Follow-up as outpatient.
Acute coronary syndrome non-STEMI
Troponin peaked at 1.7.
Patient with hypertrophic obstructive cardiomyopathy and attempt of septal alcohol ablation last week at a tertiary facility.
Has known CAD with prior intervention to LAD and RCA.
Currently chest pain-free.
Noted to be hypotensive upon admission likely secondary to hypovolemia with low oral intake
ECG with? Known LBBB, intermittent.
Repeated echocardiogram as above with concern of possible acute coronary syndrome versus stress cardiomyopathy
[facility] 08/13:
1. Stable coronary artery disease with no clear culprit of presenting NSTEMI.
2. Peak to peak gradient of 15 mmHg at rest, increases to 110 mmHg post PVC.
3. LVEDP of 10 mmHg.
Continue beta-jazmin, aspirin, statin.
Add losartan
Acute kidney injury.
Improved with IV fluid bolus
Sodium bicarbonate provided prior to catheterization
Acute on chronic hyponatremia.
Clinical assessment with no evidence of volume overload.
Urine osmolarity over 700 and decreased urine sodium consistent with high ADH state along with intravascular depletion.
TSH within normal limits
Status post Samsca
Sodium improved to 122�135.
Generalized fatigue and weakness upon presentation to
Likely multifactorial.
Afebrile and nontoxic-appearing with no complaints suggestive of infection.
Noted abnormal urinalysis, although with no urinary complaints. Urine cultures neg. Monitor closely off antibiotics
Full code
Anticipated Discharge: Within 24 hours
Subjective/Interval History
-
Date of Service: August 14, 2025
Objective Data
-
Labs:
Laboratory Results
08/14/25
04:46
WBC 5.7
Hgb 11.9 L
Hct 35.1 L
Plt Count 122 L
APTT 35.5 H
Sodium 133 L
Potassium 4.5
Chloride 103
Carbon Dioxide 27
BUN 31 H
Creatinine 0.9
Glucose 66 L
Calcium 8.6
Vital Signs:
Vital Signs
Temp Pulse Resp BP Pulse Ox
97.7 F 57 18 134/75 98
08/14/25 11:10 08/14/25 11:37 08/14/25 11:10 08/14/25 11:37 08/14/25 11:10
I&O
08/13/25 08/14/25 08/15/25
06:59 06:59 06:59
Intake Total 250 / 250 960 / 960 180 / 180
Output Total 200 / 200
Balance 250 / 250 760 / 760 180 / 180
Physical Exam
-
General: Comfortable
HEENT: Negative Oxygen
Respiratory: Clear to Auscultation
Cardiac: Regular Rhythm and S1/S2; Negative Murmur or Rub
GI: Soft, Nontender and Nondistended
Musculoskeletal: No Edema
Neuro: Awake, Alert, Oriented, No Motor Deficits and Nonfocal/Grossly Intact
Psych: Calm
[2025-08-14] MEDS: LOW STRENGTH ASPIRIN 81 MG PO (13:15)
[2025-08-14] MEDS: MIRALAX 17 GRAMS PO (13:15)
[2025-08-14] MEDS: PROTONIX 40 MG PO (13:15)
[2025-08-14] MEDS: LIPITOR 40 MG PO (13:15)
--- NOTE | 2025-08-14 23:58 | PTCARENOTE ---
Received pt at change of shift resting in bed. SB-SR on tele, HR 50's-60's. pt denies any CP or SOB at this time. NIH 0, no aphasia noted at this time. R radial site C/D/I, no bleeding or hematoma noted at this time. Fall risk precautions
maintained, bed alarm on and audible. Encouraged pt to call RN for assistance ambulating, calls appropriately. Call brown within reach.
[2025-08-15] VITALS (14 sets, daily range): BP systolic 95–127; BP diastolic 55–77; PULSE 59–62; O2SAT 99
[2025-08-15 05:48] LABS: Hematocrit 36.9 % (37.0-47.0); Hemoglobin 12.5 g/dL (12.0-16.0); Mean Corp Hgb Conc. 33.9 g/dL (33.0-37.0); Mean Corpuscular Volume 95.3 fL (81.0-99.0); Platelet Count 135 10^3/uL (130-400); Red Cell Dist. Width 13.4 % (11.5-14.5)
[2025-08-15 06:10] LABS: Blood Urea Nitrogen 35 mg/dl (7-17); Calcium 9.1 mg/dl (8.4-10.2); Carbon Dioxide 28 mmol/L (22-30); Chloride 102 mmol/L (98-107); Glucose 82 mg/dl (70-99); Potassium 4.6 mmol/L (3.5-5.1); Sodium 134 mmol/L (135-145); eGFR 49.24
--- NOTE | 2025-08-15 07:45 | PTCARENOTE ---
Assumed care of patient at change of shift. Patient is AAOx3, VSS. SB with BBB on tele. Right Radial dressing c/d/i. Patient denies dizziness. Lungs clear, 100% on RA.
[2025-08-15] MEDS: TOPROL XL PO (08:30)
[2025-08-15] MEDS: MAGNESIUM OXIDE 400 MG PO (08:59)
[2025-08-15] MEDS: COZAAR 25 MG PO (08:59)
--- NOTE | 2025-08-15 11:05 | W.PN.HOSP.TC ---
Today's Communication/Plan
-
MRI of the brain
Assessment / Plan
Assessment / Plan
Impression:
85 years old female with history of CAD, nonischemic cardiomyopathy with LVEF 35-40%, HOCM with attempt septal ablation last week at tertiary facility presents with generalized fatigue, periodic chest pressure radiating to the neck and left upper
extremity.
Acute coronary syndrome, non-STEMI
Intermittent LBBB
Hyponatremia.
Conditions prior to admission
CAD with history of intervention to LAD and RCA.
Recovered cardiomyopathy with EF of 35-40% up to LVEF of 60% on most recent echo
HOCM
Valvular disease including mild MR/mild AR/mild TR
TYSHAWN
Essential hypertension
History of breast cancer status post lumpectomy, chemotherapy and radiation 2001
History of TBI
Sleep apnea
Fibromyalgia
Anxiety/depression.
Hyponatremia
Echo 01/18/2025
Normal left ventricular size and systolic function. No regional wall motion
abnormalities are seen. LV ejection fraction is 60% by Brush's biplane method
of discs. Left ventricular hypertrophy; septum thicker than posterior wall. (
1.3 cm). Peak LVOT gradient at rest of 14 mmHg; 109 with Valsalva and 25 with
the patient standing.
Mild mitral regurgitation.
Mild aortic regurgitation.
Mild tricuspid regurgitation. Estimated pulmonary artery pressure of 22 mmHg.
Compared to the previous echo from Jun 2024, at that time, EF was 35-40% with
distal septal and apical akinesis, and distal inferior/anterior/lateral
hypokinesis with severe MR.
Echo 08/08/2025: Moderately reduced left ventricular systolic function ejection fraction is 30-35%. HCM with greater thickness of the septal wall, measuring 1.5cm. Significant hypokinesis of the mid to distal anteroseptum anterolateral wall and
entire apex. Peak/mean gradients across the left ventricular outflow tract of 43/21 mmHg respectively. Mild AR, severe MR, moderate to severe TR, small pericardial effusion. Compared to previous echo from January 2025, EF was 60% at that time with
mild MR, mild AR and mild TR.
Plan
Transient episode of expressive aphasia on 08/14.
Differential diagnosis: TIA, versus CVA (high risk given HCM, recent left heart cath), versus transient hypoglycemia (although patient is not diabetic)
No other focal abnormalities noted
Blood glucose 66
CT scan of the head with no acute abnormalities
Reported improved symptoms after orange juice with no recurrent over the last 24 hours
Given high risk, will proceed with MRI of the brain
Monitor closely
Continue aspirin and atorvastatin.
Check efficacy for aspirin
Discussed with neurology.
Acute coronary syndrome non-STEMI
Troponin peaked at 1.7.
Patient with hypertrophic obstructive cardiomyopathy and attempt of septal alcohol ablation last week at a tertiary facility.
Has known CAD with prior intervention to LAD and RCA.
Currently chest pain-free.
Noted to be hypotensive upon admission likely secondary to hypovolemia with low oral intake
ECG with? Known LBBB, intermittent.
Repeated echocardiogram as above with concern of possible acute coronary syndrome versus stress cardiomyopathy
[facility] 08/13:
1. Stable coronary artery disease with no clear culprit of presenting NSTEMI.
2. Peak to peak gradient of 15 mmHg at rest, increases to 110 mmHg post PVC.
3. LVEDP of 10 mmHg.
Continue beta-jazmin, aspirin, statin.
Add losartan
Acute kidney injury.
Improved with IV fluid bolus
Sodium bicarbonate provided prior to catheterization
Acute on chronic hyponatremia.
Clinical assessment with no evidence of volume overload.
Urine osmolarity over 700 and decreased urine sodium consistent with high ADH state along with intravascular depletion.
TSH within normal limits
Status post Samsca
Sodium improved to 122�135.
Generalized fatigue and weakness upon presentation to
Likely multifactorial.
Afebrile and nontoxic-appearing with no complaints suggestive of infection.
Noted abnormal urinalysis, although with no urinary complaints. Urine cultures neg. Monitor closely off antibiotics
Full code
Anticipated Discharge: 24 - 48 hours
Subjective/Interval History
-
Date of Service: August 15, 2025
Objective Data
-
Labs:
Laboratory Results
08/15/25
04:58
WBC 5.8
Hgb 12.5
Hct 36.9 L
Plt Count 135
Sodium 134 L
Potassium 4.6
Chloride 102
Carbon Dioxide 28
BUN 35 H
Creatinine 1.1 H
Glucose 82
Calcium 9.1
Vital Signs:
Vital Signs
Temp Pulse Resp BP Pulse Ox
97.4 F 61 16 114/74 100
08/15/25 07:40 08/15/25 10:35 08/15/25 07:40 08/15/25 10:35 08/15/25 08:45
I&O
08/14/25 08/15/25 08/16/25
06:59 06:59 06:59
Intake Total 960 / 960 540 / 540
Output Total 200 / 200 1775 / 1775
Balance 760 / 760 -1235 / -1235
Physical Exam
-
General: Comfortable
HEENT: Negative Oxygen
Respiratory: Clear to Auscultation
Cardiac: Regular Rhythm and S1/S2; Negative Murmur or Rub
GI: Soft, Nontender and Nondistended
Musculoskeletal: No Edema
Neuro: Awake, Alert, Oriented, No Motor Deficits and Nonfocal/Grossly Intact
Psych: Calm
--- NOTE | 2025-08-15 12:29 | W.PN.CARDCBS ---
Addendum entered and electronically signed by Felton Scott MD 08/15/25 13:31:
I saw and examined the patient.
The NEON ELECTRICIAN or PA's note was reviewed and I agree with the note.
Comment: General: Well developed, well nourished in NAD.
Neck: Supple, no JVD, HJR, carotids +2 B/L, no bruits bilaterally.
Heart: Non displaced PMI, RRR, no murmurs, No S3, S4, no rubs.
Lungs: scattered rhonchi
Extremities: No clubbing, cyanosis or edema bilaterally.
Neuro: Grossly nonfocal, awake, alert and oriented x3.
stable cardiology status for d/c and has f/u with [facility] on 08/20 already arranged. Await mri
Original Note:
Today's Communication / Plan
-
awaiting brain MRI
in SR
dietary consult
OP follow up with [facility] arranged
Impression / Plan
-
Primary Route Rider: Dr. RIDGE Perston and Dr. Paz at [facility]
Impression:
Presentation with weakness, neck/L arm/chest discomfort
Hypotension
Elevated troponin, peak 1.76, concern for NSTEMI
HOCM s/p aborted ETOH septal ablation 05/08/25 at [facility], planned for SESAME procedure at [facility], has office visit with equipment records supervisor on 08/20/2025
Recurrent CM this admission with EF 30-35%, severe MR and mod to severe TR on 08/08/2025 echo
Small pericardial effusion
Coronary artery disease
10/01/20 atherectomy to the LAD and diagonal bifurcation and T stenting with a 2.5/8 mm to Diagonal, 2.5/28 mm Susana Xience V LETHA in the LAD.
10/12/22 Cor angio for CP patent LAD stents and no new significant cor dz
07/10/24 Modest progression of CAD in mid RCA and at origin of 1st diag branch. 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
Hx Traumatic brain injury
she fell out of her bed and hit her head, developed hallucinations approximately 3 weeks later, found to have right subdural collection with subacute to chronic SDH at [facility] 10/2021
Hyponatremia.
Hyperlipidemia with statin intolerance
Left breast cancer status post lumpectomy, chemotherapy and radiation 2001.
Sleep apnea
Fibromyalgia
Osteoarthritis
Dyslipidemia (h/o poorly karla statin but recently tolerating atorvastatin)
Anxiety and depression
Echo 07/10/2024: EF 35 to 40%, distal septum and apex akinetic, distal inferior, distal anterior and distal lateral hypokinetic, hokum with LVOT gradients difficult to assess due to severe MR, systolic anterior motion of anterior mitral valve
leaflet with severe MR, mild AR, moderate TR, PAP 40 to 45 mmHg
ECHO 01/18/25: EF 60%, LVH with septum thicker than posterior wall, peak LVOT gradient at rest 14, 109 with Valsalva and 25 with standing, mild MR, mild AR, mild TR, PAP 22 mmHg
Echo 08/08/2025: Moderately reduced left ventricular systolic function ejection fraction is 30-35%. HCM with greater thickness of the septal wall, measuring 1.5cm. Significant hypokinesis of the mid to distal anteroseptum anterolateral wall and
entire apex. Peak/mean gradients across the left ventricular outflow tract of 43/21 mmHg respectively. Mild AR, severe MR, moderate to severe TR, small pericardial effusion. Compared to previous echo from January 2025, EF was 60% at that time with
mild MR, mild AR and mild TR.
Plan:
-She presented with L arm/chest/neck discomfort with LAD distribution hypokinesis with a troponin of 1.7 in setting of known hypertrophic cardiomyopathy - by catheterization 2023 she had a patent LAD stent with a moderate mid RCA stenosis and a
stenosis in a diagonal.
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
-s/p cath 08/13/25 with stable CAD without clear culprit and LVEDP of 10, felt most likely to be stress CM. will observe off diuretic therapy
-case discussed with HCM team at [facility], Dr. Paz and cozaar was added to regimen post cath. she is planned for eval with Dr. Sheikh at [facility] on 08/20 as being considered for SESAME procedure. she had undergone aborted ETOH septal ablation 05/08/25 at
[facility].
-continue asa, toprol, lipitor
-yesterday afternoon she had episode of transient aphasia/word finding difficulty. BS at that time was low at 66. symptoms did improve somewhat with OJ. she had head CT which was ok. interestingly she had an ER visit 05/12/24 for similar symptoms
with negative head CT and was placed on plavix for 3 weeks at that time. d/w hospitalist, plan for brain MRI today
-in SR on review of tele overnight. no arrhythmia correlated with event 08/14
-patient's son at bedside expressed concern over patient's eating habits. he has requested dietary consult, order placed.
-d/w nursing. d/w hospitalist
Progress Note - Route Rider
Subjective
Date of Service: August 15, 2025
feeling fine at present. no speech issues. eager for DC
Objective
Labs:
08/15/25 04:58
08/15/25 04:58
Labs
Hgb 12.5 g/dL (12.0-16.0) 08/15/25 04:58
Hct 36.9 % (37.0-47.0) L 08/15/25 04:58
Plt Count 135 10^3/uL (130-400) 08/15/25 04:58
APTT 35.5 Sec (23.4-35.0) H 08/14/25 04:46
Sodium 134 mmol/L (135-145) L 08/15/25 04:58
Potassium 4.6 mmol/L (3.5-5.1) 08/15/25 04:58
BUN 35 mg/dl (7-17) H 08/15/25 04:58
Creatinine 1.1 mg/dL (0.6-1.0) H 08/15/25 04:58
Glucose 82 mg/dl (70-99) 08/15/25 04:58
Vital Signs and I&O:
Vital Signs
Temp Pulse Resp BP Pulse Ox
98.5 F 62 18 114/58 98
08/15/25 11:42 08/15/25 11:00 08/15/25 11:42 08/15/25 10:54 08/15/25 11:42
Vital Signs
Temp Pulse Resp BP Pulse Ox
98.5 F 62 18 114/58 98
08/15/25 11:42 08/15/25 11:00 08/15/25 11:42 08/15/25 10:54 08/15/25 11:42
Intake & Output
08/13/25 08/14/25 08/15/25 08/16/25
07:59 07:59 07:59 07:59
Intake Total 250 / 250 960 / 960 540 / 540
Output Total 200 / 200 1775 / 1775
Balance 250 / 250 760 / 760 -1235 / -1235
Physical Exam
Physical Exam
GEN: No distress, awake, alert, oriented x3. sitting in chair
HEENT: supple, anicteric, mmm, eomi
LUNGS: CTA B/L, no wheezes/rales
CV: Reg, S1/S2, 1/6 murmur
ABD: soft, BS+, NT/ND
EXT: No cyanosis, clubbing, edema
NEURO: Gross non-focal
SKIN: Warm, pink, dry. No rash. wrist site c/d/i
[2025-08-15] MEDS: PROTONIX 40 MG PO (12:47)
[2025-08-15] MEDS: LOW STRENGTH ASPIRIN 81 MG PO (12:47)
[2025-08-15] MEDS: LIPITOR 40 MG PO (12:47)
[2025-08-15 13:23] LABS: Glucose - Point of Care 78 mg/dl (70-99)
--- NOTE | 2025-08-15 13:23 | PTCARENOTE ---
Called by the patient, 'I feel like like something is blocking my vision in my left eye, my vision is blurry on my left side. NIH 0. Pupils equal and reactive. Accu check 76, BP 113/63, HR 52. Dr. Le notified. patient in bed resting.
[2025-08-15] MEDS: TOPROL XL 25 MG PO (20:15)
[2025-08-15] MEDS: TYLENOL 650 MG PO (20:15)
--- NOTE | 2025-08-16 00:08 | PTCARENOTE ---
ax3 [facility] 0 - neuro checks wnl afebrile bp wnl. sinus- rings appropriate;y for assistance. ambulated to br x2- bed alarm in place
[2025-08-16 03:04] VITALS: BP 104/66
[2025-08-16 07:27] VITALS: BP 107/61
--- NOTE | 2025-08-16 08:15 | PTCARENOTE ---
Patient sent to MRI on stretcher
[2025-08-16] MEDS: COZAAR PO (09:00)
[2025-08-16] MEDS: TOPROL XL PO (09:00)
[2025-08-16 09:04] VITALS: BP 104/88
[2025-08-16] MEDS: MAGNESIUM OXIDE 400 MG PO (09:05)
--- NOTE | 2025-08-16 09:05 | PTCARENOTE ---
Assumed care of patient at change of shift. AAOx3, VSS. NIH - 0. Sinus stepan on tele, heart rate 59. Right radial site open to air. Patient denies complaints at this time. Patient is forgetful at times, bed and chair alarm maintained. Call
brown within reach.
--- NOTE | 2025-08-16 09:44 | W.PN.NEURO.1 ---
Today's Communication / Plan
-
Start clopidogrel 75 mg daily for 21 days, then discontinue
Continue aspirin 81 mg daily
Continue atorvastatin 40 mg daily
Neuro Assessment/Plan
Assessment
Patient is a 85 years old female with history of CAD, nonischemic cardiomyopathy with LVEF 35-40% now presents as stroke alert given recurrent aphasia.
Head CT: No evidence of acute intracranial abnormality. ASPECT score: 10
MRI brain officially read as demonstrating acute ischemic lacunar infarcts. With the absence of hyperdense and hyperintense changes in ADC and FLAIR imaging, it is unlikely that these changes demonstrated represent significant ischemic lesions.
Instead, they may actually represent artifact. The presence of lesions in the left hemisphere, would theoretically match the patient's symptoms although exceedingly small.
Plan
Start clopidogrel 75 mg daily for 21 days, then discontinue
Continue aspirin 81 mg daily
Continue atorvastatin 40 mg daily
-goal normoglycemia
-goal normotension
Will provide medical educational materials
Patient currently not in evidence of need for rehab
Will follow as outpatient
Subjective/Objective
Subjective Data
Date of Service: August 16, 2025
Objective Data
Vital Signs
Temp Pulse Resp BP Pulse Ox
36.4 C 59 20 104/88 98
08/16/25 07:27 08/16/25 09:00 08/16/25 07:27 08/16/25 09:00 08/16/25 07:27
Lab Results
08/15/25 04:58
08/15/25 04:58
APTT 35.5 Sec (23.4-35.0) H 08/14/25 04:46
Sodium 134 mmol/L (135-145) L 08/15/25 04:58
Potassium 4.6 mmol/L (3.5-5.1) 08/15/25 04:58
BUN 35 mg/dl (7-17) H 08/15/25 04:58
Glucose 82 mg/dl (70-99) 08/15/25 04:58
Calcium 9.1 mg/dl (8.4-10.2) 08/15/25 04:58
Zwu-U-Mbwyrxflazq Pept 32301 pg/ml 08/08/25 10:29
LDL Cholesterol, Calc 54 mg/dl 08/08/25 05:45
Patient Allergies
aspirin Allergy (Verified 08/10/25 08:58)
Nausea / Vomiting
Cephalosporins Allergy (Verified 08/07/25 18:05)
Unknown
iodine Allergy (Verified 08/10/25 08:59)
Unknown
NSAIDS (Non-Steroidal Anti-Inflamma Allergy (Verified 08/07/25 18:05)
Unknown
penicillin G Allergy (Verified 08/07/25 18:05)
Nausea / Vomiting
Penicillins Allergy (Verified 08/07/25 18:05)
Nausea / Vomiting
Salicylates * Allergy (Verified 08/07/25 18:05)
Nausea / Vomiting
Sulfa (Sulfonamide Antibiotics) Allergy (Verified 08/07/25 18:05)
Nausea / Vomiting
sulfamethoxazole Allergy (Verified 08/07/25 18:05)
Nausea / Vomiting
trimethoprim Allergy (Verified 08/07/25 18:05)
Nausea / Vomiting
verapamil Allergy (Verified 08/07/25 18:05)
Shortness of Breath
Data Reviewed
-
MRI Head: Report Reviewed and Image Reviewed
Labs: Report Reviewed
Reviewed with: Physician
Old Records: Summarized
Past History
Past History
ED Past Medical History: CAD, Cancer (Left breast), CVA, GERD, HTN, Hypercholesterolemia and Other (CM, Diverticulitis)
ED Past Surgical History: Appendectomy, Cardiac (PTCA with stent 2020, 'Fat Heart'), Gynecological (Left breast mastectomy), Orthopedic and Urological (Bladder left)
Social History
Tobacco: Former smoker
Alcohol: None
Drug: None
Personal:
Living: with family
Employment: Retired
Family History
Family History: Other (Noncontributory)
Medications
-
Medications:
Generic Name Dose Route Start Last Admin
Trade Name Freq PRN Reason Stop Dose Admin
Acetaminophen 650 mg 08/08/25 22:41 08/15/25 20:15
Acetaminophen 325 Mg Tablet PO 09/05/25 22:40 650 mg
Q4HPRN PRN Administration
mild pain/MEYER/temp>100.5
Aspirin 81 mg 08/08/25 12:00 08/15/25 12:47
Aspirin 81 Mg Chewable Tablet PO 09/05/25 11:59 81 mg
NOON CAPO Administration
Atorvastatin Calcium 40 mg 08/08/25 12:00 08/15/25 12:47
Atorvastatin (Lipitor) 40 Mg Tablet PO 09/05/25 11:59 40 mg
NOON CAPO Administration
Clopidogrel Bisulfate 75 mg 08/16/25 10:00
Clopidogrel 75 Mg Tablet PO 09/05/25 08:01
DAILY CAPO
Losartan Potassium 25 mg 08/14/25 08:00 08/16/25 09:00
Losartan 25 Mg Tablet PO 09/11/25 07:59 Not Given
DAILY CAPO
Magnesium Oxide 400 mg 08/10/25 12:30 08/16/25 09:05
Magnesium Oxide 400 Mg Tablet PO 09/07/25 12:29 400 mg
DAILY CAPO Administration
Metoprolol Succinate 25 mg 08/10/25 20:00 08/16/25 09:00
Metoprolol 25 Mg Extended Release Tablet PO 09/07/25 19:59 Not Given
BID CAPO
Pantoprazole Sodium 40 mg 08/08/25 12:00 08/15/25 12:47
Pantoprazole 40 Mg Delayed Release Tablet PO 09/05/25 11:59 40 mg
NOON CAPO Administration
Polyethylene Glycol 17 grams 08/12/25 10:29 08/14/25 13:15
Polyethylene Glycol Powder 17 Grams Packet PO 09/09/25 10:28 17 grams
DAILYPRN PRN Administration
constipation
Sodium Chloride 0 flush 08/07/25 23:00
Sodium Chloride 0.9% (Flush) Syringe IV 09/04/25 22:59
PER PROTOCOL CAPO
[2025-08-16] MEDS: PLAVIX 75 MG PO (09:58)
[2025-08-16] MEDS: MIRALAX 17 GRAMS PO (10:20)
--- NOTE | 2025-08-16 10:34 | W.PN.HOSP.TC ---
Today's Communication/Plan
-
Discharge
Assessment / Plan
Assessment / Plan
Impression:
85 years old female with history of CAD, nonischemic cardiomyopathy with LVEF 35-40%, HOCM with attempt septal ablation last week at tertiary facility presents with generalized fatigue, periodic chest pressure radiating to the neck and left upper
extremity.
Acute coronary syndrome, non-STEMI
Intermittent LBBB
Hyponatremia.
Conditions prior to admission
CAD with history of intervention to LAD and RCA.
Recovered cardiomyopathy with EF of 35-40% up to LVEF of 60% on most recent echo
HOCM
Valvular disease including mild MR/mild AR/mild TR
TYSHAWN
Essential hypertension
History of breast cancer status post lumpectomy, chemotherapy and radiation 2001
History of TBI
Sleep apnea
Fibromyalgia
Anxiety/depression.
Hyponatremia
Echo 01/18/2025
Normal left ventricular size and systolic function. No regional wall motion
abnormalities are seen. LV ejection fraction is 60% by Brush's biplane method
of discs. Left ventricular hypertrophy; septum thicker than posterior wall. (
1.3 cm). Peak LVOT gradient at rest of 14 mmHg; 109 with Valsalva and 25 with
the patient standing.
Mild mitral regurgitation.
Mild aortic regurgitation.
Mild tricuspid regurgitation. Estimated pulmonary artery pressure of 22 mmHg.
Compared to the previous echo from Jun 2024, at that time, EF was 35-40% with
distal septal and apical akinesis, and distal inferior/anterior/lateral
hypokinesis with severe MR.
Echo 08/08/2025: Moderately reduced left ventricular systolic function ejection fraction is 30-35%. HCM with greater thickness of the septal wall, measuring 1.5cm. Significant hypokinesis of the mid to distal anteroseptum anterolateral wall and
entire apex. Peak/mean gradients across the left ventricular outflow tract of 43/21 mmHg respectively. Mild AR, severe MR, moderate to severe TR, small pericardial effusion. Compared to previous echo from January 2025, EF was 60% at that time with
mild MR, mild AR and mild TR.
Plan
Transient episode of expressive aphasia on 08/14.
Differential diagnosis: TIA, versus CVA (high risk given HCM, recent left heart cath), versus transient hypoglycemia (although patient is not diabetic)
MRI of the brain on 08/15 with findings consistent with left frontal acute/subacute infarction versus cholesterol emboli following left heart cath.
Discussed with neurology
Will initiate DAPT with addition of Plavix for 21 days
Continue statin
Follow-up with neurology as outpatient
Acute coronary syndrome non-STEMI
Troponin peaked at 1.7.
Patient with hypertrophic obstructive cardiomyopathy and attempt of septal alcohol ablation last week at a tertiary facility.
Has known CAD with prior intervention to LAD and RCA.
Currently chest pain-free.
Noted to be hypotensive upon admission likely secondary to hypovolemia with low oral intake
ECG with? Known LBBB, intermittent.
Repeated echocardiogram as above with concern of possible acute coronary syndrome versus stress cardiomyopathy
[facility] 08/13:
1. Stable coronary artery disease with no clear culprit of presenting NSTEMI.
2. Peak to peak gradient of 15 mmHg at rest, increases to 110 mmHg post PVC.
3. LVEDP of 10 mmHg.
Continue beta-jazmin, aspirin, statin.
Add losartan
Acute kidney injury.
Improved with IV fluid bolus
Sodium bicarbonate provided prior to catheterization
Acute on chronic hyponatremia.
Clinical assessment with no evidence of volume overload.
Urine osmolarity over 700 and decreased urine sodium consistent with high ADH state along with intravascular depletion.
TSH within normal limits
Status post Samsca
Sodium improved to 122�135.
Generalized fatigue and weakness upon presentation to
Likely multifactorial.
Afebrile and nontoxic-appearing with no complaints suggestive of infection.
Noted abnormal urinalysis, although with no urinary complaints. Urine cultures neg. Monitor closely off antibiotics
Full code
Anticipated Discharge: Today
Subjective/Interval History
-
Date of Service: August 16, 2025
Objective Data
-
Vital Signs:
Vital Signs
Temp Pulse Resp BP Pulse Ox
97.5 F 59 20 104/88 98
08/16/25 07:27 08/16/25 09:00 08/16/25 07:27 08/16/25 09:00 08/16/25 07:27
I&O
08/15/25 08/16/25 08/17/25
06:59 06:59 06:59
Intake Total 540 / 540 480 / 480
Output Total 1775 / 1775 550 / 550 200 / 200
Balance -1235 / -1235 -550 / -550 280 / 280
Physical Exam
-
General: Comfortable
HEENT: Negative Oxygen
Respiratory: Clear to Auscultation
Cardiac: Regular Rhythm and S1/S2; Negative Murmur or Rub
GI: Soft, Nontender and Nondistended
Musculoskeletal: No Edema
Neuro: Awake, Alert, Oriented, No Motor Deficits and Nonfocal/Grossly Intact
Psych: Calm
[2025-08-16 11:08] VITALS: BP 131/82
--- NOTE | 2025-08-16 12:06 | W.PN.CARDCBS ---
Addendum entered and electronically signed by Roger Nino MD 08/16/25 18:14:
I saw and examined the patient on morning rounds.
The Plastics Nurse's note was reviewed and I agree with the note.
Comment: Briefly, 85-year-old woman past medical history of hypertrophic cardiomyopathy who presented with chest discomfort and found to have elevated troponin concerning for NSTEMI. Underwent left heart catheterization 08/13/2025 showing stable
coronary disease with no culprit vessel. She then developed transient aphasia and there was concern for possible CVA.
Patient seems to be back to baseline today
Resting comfortably out of bed to chair with no cardiac complaints
Agree with plan to discharge on aspirin/Plavix and high intensity statin as well as beta-jazmin
Treatment of hypertrophic cardiomyopathy at [facility]. Tentative plan for Sesame procedure in the near future.
Stable for discharge from my perspective
Original Note:
Today's Communication / Plan
-
continue asa, plavix, PPI
continue toprol, cozaar
OP follow up as planned at [facility] 08/20
Impression / Plan
-
Primary Senior Dot Net Developer: Dr. RIDGE Preston and Dr. Paz at [facility]
Impression:
Presentation with weakness, neck/L arm/chest discomfort
Hypotension
Elevated troponin, peak 1.76, concern for NSTEMI
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
HOCM s/p aborted ETOH septal ablation 05/08/25 at [facility], planned for SESAME procedure at [facility], has office visit with search marketing coordinator on 08/20/2025
Recurrent CM this admission with EF 30-35%, severe MR and mod to severe TR on 08/08/2025 echo
Small pericardial effusion
Coronary artery disease
10/01/20 atherectomy to the LAD and diagonal bifurcation and T stenting with a 2.5/8 mm to Diagonal, 2.5/28 mm Susana Xience V LETHA in the LAD.
10/12/22 Cor angio for CP patent LAD stents and no new significant cor dz
07/10/24 Modest progression of CAD in mid RCA and at origin of 1st diag branch. 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
Hx Traumatic brain injury
she fell out of her bed and hit her head, developed hallucinations approximately 3 weeks later, found to have right subdural collection with subacute to chronic SDH at [facility] 10/2021
Hyponatremia.
Hyperlipidemia with statin intolerance
Left breast cancer status post lumpectomy, chemotherapy and radiation 2001.
Sleep apnea
Fibromyalgia
Osteoarthritis
Dyslipidemia (h/o poorly karla statin but recently tolerating atorvastatin)
Anxiety and depression
Echo 07/10/2024: EF 35 to 40%, distal septum and apex akinetic, distal inferior, distal anterior and distal lateral hypokinetic, hokum with LVOT gradients difficult to assess due to severe MR, systolic anterior motion of anterior mitral valve
leaflet with severe MR, mild AR, moderate TR, PAP 40 to 45 mmHg
ECHO 01/18/25: EF 60%, LVH with septum thicker than posterior wall, peak LVOT gradient at rest 14, 109 with Valsalva and 25 with standing, mild MR, mild AR, mild TR, PAP 22 mmHg
Echo 08/08/2025: Moderately reduced left ventricular systolic function ejection fraction is 30-35%. HCM with greater thickness of the septal wall, measuring 1.5cm. Significant hypokinesis of the mid to distal anteroseptum anterolateral wall and
entire apex. Peak/mean gradients across the left ventricular outflow tract of 43/21 mmHg respectively. Mild AR, severe MR, moderate to severe TR, small pericardial effusion. Compared to previous echo from January 2025, EF was 60% at that time with
mild MR, mild AR and mild TR.
Plan:
-She presented with L arm/chest/neck discomfort with LAD distribution hypokinesis with a troponin of 1.7 in setting of known hypertrophic cardiomyopathy - by catheterization 2023 she had a patent LAD stent with a moderate mid RCA stenosis and a
stenosis in a diagonal.
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
-s/p cath 08/13/25 with stable CAD without clear culprit and LVEDP of 10, felt most likely to be stress CM. will observe off diuretic therapy
-case discussed with HCM team at [facility], Dr. Paz and cozaar was added to regimen post cath. she is planned for eval with Dr. Sheikh at [facility] on 08/20 as being considered for SESAME procedure. she had undergone aborted ETOH septal ablation 05/08/25 at
[facility].
-continue asa, toprol, lipitor
-08/14 she had episode of transient aphasia/word finding difficulty. BS at that time was low at 66. symptoms did improve somewhat with OJ. she had head CT which was ok. interestingly she had an ER visit 05/12/24 for similar symptoms with negative head
CT and was placed on plavix for 3 weeks at that time. brain MRI read as acute to subacute L CVA. continue asa, plavix. given this is not the first episode of symptoms, would follow up with neurology as OP to determine antiplatelet regimen moving
forward (after initial 21 days)
-in SR on review of tele overnight. no arrhythmia correlated with event 08/14
-plan for DC to home today
-d/w nursing. d/w patient and son at bedside
Progress Note - Senior Dot Net Developer
Subjective
Date of Service: August 16, 2025
feeling well. eager for DC
Objective
Labs:
08/15/25 04:58
08/15/25 04:58
Labs
Hgb 12.5 g/dL (12.0-16.0) 08/15/25 04:58
Hct 36.9 % (37.0-47.0) L 08/15/25 04:58
Plt Count 135 10^3/uL (130-400) 08/15/25 04:58
APTT 35.5 Sec (23.4-35.0) H 08/14/25 04:46
Sodium 134 mmol/L (135-145) L 08/15/25 04:58
Potassium 4.6 mmol/L (3.5-5.1) 08/15/25 04:58
BUN 35 mg/dl (7-17) H 08/15/25 04:58
Creatinine 1.1 mg/dL (0.6-1.0) H 08/15/25 04:58
Glucose 82 mg/dl (70-99) 08/15/25 04:58
Vital Signs and I&O:
Vital Signs
Temp Pulse Resp BP Pulse Ox
97.8 F 64 15 104/88 91
08/16/25 11:07 08/16/25 11:07 08/16/25 11:07 08/16/25 09:00 08/16/25 11:07
Vital Signs
Temp Pulse Resp BP Pulse Ox
97.8 F 64 15 104/88 91
08/16/25 11:07 08/16/25 11:07 08/16/25 11:07 08/16/25 09:00 08/16/25 11:07
Intake & Output
08/14/25 08/15/25 08/16/25 08/17/25
07:59 07:59 07:59 07:59
Intake Total 960 / 960 540 / 540 480 / 480
Output Total 200 / 200 1775 / 1775 550 / 550 200 / 200
Balance 760 / 760 -1235 / -1235 -550 / -550 280 / 280
Physical Exam
Physical Exam
GEN: No distress, awake, alert, oriented x3. sitting in chair
HEENT: supple, anicteric, mmm, eomi
LUNGS: CTA B/L, no wheezes/rales
CV: Reg, S1/S2, 1/6 murmur
ABD: soft, BS+, NT/ND
EXT: No cyanosis, clubbing, edema
NEURO: Gross non-focal
SKIN: Warm, pink, dry. No rash. wrist site c/d/i
[2025-08-16] MEDS: PROTONIX 40 MG PO (12:19)
[2025-08-16] MEDS: LIPITOR 40 MG PO (12:19)
[2025-08-16] MEDS: LOW STRENGTH ASPIRIN 81 MG PO (12:24)
[2025-08-16 14:53] VITALS: BP 136/109
[2025-08-16 14:55] VITALS: BP 114/71
[2025-08-16] MEDS: FLUZONE HIGH-DOSE 2025-26 0.5 ML IM (15:17)
--- NOTE | 2025-08-16 16:53 | PTCARENOTE ---
Patient's son arrived. Patient escorted down to lobby in wheelchair.
== END 2025-08-16 16:55 | disposition home health service (06) | DRG 280 ==
LOC: IVU 14:07
PROVIDERS: Hospitalist; Internal Medicine Cardiovascular Disease; Internal Medicine Interventional Cardiology; Nurse Practitioner; Registered Nurse; ADMITTING PHYSICIAN Internal Medicine; ATTENDING PHYSICIAN Internal Medicine; CONSULT PHYSICIAN Psychiatry & Neurology Neurology; CONSULT PHYSICIAN Specialist; EMERGENCY PHYSICIAN Student in an Organized Health Care Education/Training Program; FAMILY PHYSICIAN Family Medicine; OTHER PHYSICIAN Internal Medicine Cardiovascular Disease
PROC: 4A023N7 Measurement of Cardiac Sampling and Pressure, Left Heart, Percutaneous Approach (ICD-10-PCS; 2025-08-13)
PROC: B2111ZZ Fluoroscopy of Multiple Coronary Arteries using Low Osmolar Contrast (ICD-10-PCS; 2025-08-13)
PROC: 3E02340 Introduction of Influenza Vaccine into Muscle, Percutaneous Approach (ICD-10-PCS; 2025-08-16)
DX: I21.4 Non-ST elevation (NSTEMI) myocardial infarction (principal); G92.8 Other toxic encephalopathy; E87.1 Hypo-osmolality and hyponatremia; I97.820 Postprocedural cerebrovascular infarction following cardiac surgery; N17.9 Acute kidney failure, unspecified; I50.20 Unspecified systolic (congestive) heart failure; I13.0 Hypertensive heart and chronic kidney disease with heart failure and stage 1 through stage 4 chronic kidney disease, or unspecified chronic kidney disease; I31.39 Other pericardial effusion (noninflammatory); I42.2 Other hypertrophic cardiomyopathy; Z87.891 Personal history of nicotine dependence; Z63.4 Disappearance and death of family member; Z60.2 Problems related to living alone; N18.30 Chronic kidney disease, stage 3 unspecified; M79.7 Fibromyalgia; F32.A Depression, unspecified; F41.9 Anxiety disorder, unspecified; Z23 Encounter for immunization
CPT/HCPCS: 70450; 70551; 80048; 80053; 80061; 81003; 81015; 82962; 83036; 83880; 83930; 83935; 84300; 84443; 84484; 85025; 85027; 85730; 87086; 93005; 93306; 93458; 96361; 96365; 97116; 97162; 97167; 97530; 99152; 99153; 99284; C1769; C1894; Q9967

== ENCOUNTER → 2025-09-03 08:22 | Outpatient (REF) | payer MEDICARE, OTHER, SELFPAY | LOC: WDC 08:22 | PROVIDERS: ATTENDING PHYSICIAN Family Medicine | DX: Z12.31 Encounter for screening mammogram for malignant neoplasm of breast (principal); Z12.39 Encounter for other screening for malignant neoplasm of breast | CPT/HCPCS: 77063; 77067 ==